=== PATIENT | female | born 1945 | race Caucasian/White ===

== ENCOUNTER 2017-02-25 13:06 | Inpatient (IN) | payer MEDICARE, BC ==
[~2017-02-25] VITALS: Ht 157.5 cm; Wt 70.0 kg
[~2017-02-25 13:06] MED LIST: CARV25TA2 PO; GLIP5TAB22 PO; LOSA100T6 PO; METF500T4 PO
--- NOTE | 2017-02-25 13:26 | ED.ADGEN ---
Past History Past Medical History: CAD, Dementia, Diabetes, Other Past Surgical History: Other Adult General HPI HPI Patient is a 72-year-old woman, with history of CAD, type 2 diabetes mellitus, dementia, seizure disorder, who presents the emergency department via EMS with report of a witnessed seizure. Per EMS, they were told the patient was lying on the couch when she had a witnessed tonic-clonic seizure that lasted between 2-4 minutes. Patient had a seizure a year ago per report given by an individual at the patient's home, same individual's report of the patient has been noncompliant with medications, medication list is not known at this time, however this individual is en route to the emergency department per EMS report. Upon arrival to the emergency department, patient is moving all extremities but is repetitive in questioning, and cannot answer questions. No report of trauma per EMS, no signs of trauma and examination, patient has been incontinent of stool and bladder. Patient is denying complaints at this time, but as stated is a limited historian. Accu-Chek en route was 336, on arrival to the emergency department heart rate is 105, blood pressure is 198/94, oxygen saturation is 95 % on 2 L nasal cannula. Patient placed on seizure precautions. Review of Systems Review of Systems Constitutional: Denies fever or chills [] Eyes: Denies change in visual acuity, redness, or eye pain [] HENT: Denies nasal congestion or sore throat [] Respiratory: Denies cough or shortness of breath [] Cardiovascular: No additional information not addressed in HPI [] GI: Denies abdominal pain, nausea, vomiting, bloody stools or diarrhea [] : Denies dysuria or hematuria [] Musculoskeletal: Denies back pain or joint pain [] Integument: Denies rash or skin lesions [] Neurologic: Denies headache, focal weakness or sensory changes []seizure per report. Endocrine: Denies polyuria or polydipsia [] Patient is a very limited historian. Current Medications Current Medications Current Medications Medications (Trade) Dose Ordered Sig/Chela Start Time Stop Time Status Last Admin Dose Admin Acetaminophen (Tylenol) 650 mg PRN Q4HRS PRN 02/25/17 15:30 02/26/17 15:29 Ceftriaxone Sodium 1 gm/ Sodium Chloride 50 ml @ 100 mls/hr 1X ONCE 02/25/17 15:30 02/25/17 15:59 02/25/17 15:30 100 MLS/HR Ceftriaxone Sodium (Rocephin) 1 gm STK-MED ONCE 02/25/17 15:14 02/25/17 15:15 DC Dextrose 12.5 gm PRN Q15MIN PRN 02/25/17 15:30 Insulin Aspart (NovoLOG) 0-5 UNITS QIDPRN PRN 02/25/17 15:30 Magnesium Sulfate/ Dextrose 100 ml @ 100 mls/hr 1X ONCE 02/25/17 15:45 02/25/17 16:44 Nystatin/ Triamcinolone Acetonide (Mycolog Ii) 1 fuad 1X ONCE 02/25/17 13:30 02/25/17 13:31 DC 02/25/17 13:30 1 FUAD Ondansetron HCl (Zofran) 4 mg PRN Q4HRS PRN 02/25/17 15:30 02/26/17 15:29 Sodium Chloride 1,000 ml @ 100 mls/hr Q10H 02/25/17 15:18 02/26/17 15:17 Allergies Allergies Allergies Coded Allergies Type Severity Reaction Last Updated Verified No Known Drug Allergies 05/24/16 No Physical Exam Physical Exam Constitutional: Well developed, well nourished, no acute distress, non-toxic appearance. []Patient noted to have stool on legs and feet. Stool also noted underneath fingernails. HENT: Normocephalic, atraumatic, bilateral external ears normal, oropharynx moist, no oral exudates, nose normal. [] Eyes: PERRLA, EOMI, conjunctiva normal, no discharge. [] Neck: Normal range of motion, no tenderness, supple, no stridor. [] Cardiovascular: Tachycardic, S1, S2, soft heart sounds, no rubs or gallops. No murmur.[] Lungs & Thorax: Bilateral breath sounds clear to auscultation no wheezing, rhonchi, rales. No chest or crepitus or tenderness. Patient noted to have erythema underneath both breasts consistent with rebeka infection.] Abdomen: Bowel sounds normal, soft, no rebound, rigidity, no guarding, no tenderness, no masses, no pulsatile masses. [] Skin: Warm, dry, patient with erythema and candidal type rash underneath both breasts and in the inguinal region bilaterally, no abscess formation or induration identified, noted to have erythema and irritation of the buttocks but no evidence of the cubital ulcers or breakdown. Back: No midline tenderness, no sepsis or deformities, lesions or signs of trauma, no CVA tenderness. [] Extremities: No tenderness, patient with swelling in the left lower sternal greater than right, with trace pitting edema in the right, and 1+ pitting edema on the left, no external signs of trauma, no cyanosis, no clubbing, ROM intact, no edema. [] Neurologic: Patient is awake, is answering some questions but is repetitive in questioning, and cannot answer to location or name, this is baseline mental status is unknown at this time, is moving all extremities and sensation appears to be intact. He pulls are 3 mm and reactive bilaterally. No focal deficits noted. [] Psychologic: Patient is confused. Current Patient Data Vital Signs Vital Signs Date Time Temp Pulse Resp B/P (MAP) Pulse Ox O2 Delivery O2 Flow Rate FiO2 02/25/17 13:06 98.0 96 18 98 Room Air Lab Results Laboratory Tests Test 02/25/17 13:20 02/25/17 13:24 02/25/17 13:30 02/25/17 14:55 Stool Occult Blood Negative (NEG) Urine Collection Type U cath Urine Color Straw Urine Clarity Turbid Urine pH 5.5 Urine Specific Withams 1.025 Urine Protein >100 mg/dl (NEG-TRACE) Urine Glucose (UA) 100 mg/dL (NEG) Urine Ketones (Stick) Neg mg/dL (NEG) Urine Blood Mod (NEG) Urine Nitrite Neg (NEG) Urine Bilirubin Neg (NEG) Urine Urobilinogen Dipstick 0.2 mg/dL (0.2 mg/dL) Urine Leukocyte Esterase Mod (NEG) Urine RBC 6-10 /HPF (0-2) Urine WBC Tntc /HPF (0-4) Urine Squamous Epithelial Cells Few /LPF Urine Transitional Epithelial Cells Occ /LPF Urine Bacteria Many /HPF (0-FEW) Urine Hyaline Casts Few /HPF Urine Opiates Screen Neg (NEG) Urine Methadone Screen Neg (NEG) Urine Barbiturates Neg (NEG) Urine Phencyclidine Screen Neg (NEG) Urine Amphetamine/Methamphetamine Neg (NEG) Urine Benzodiazepines Screen Neg (NEG) Urine Cocaine Screen Neg (NEG) Urine Cannabinoids Screen Neg (NEG) Urine Ethyl Alcohol Neg (NEG) White Blood Count 9.1 x10^3/uL (4.0-11.0) Red Blood Count 3.18 x10^6/uL (3.50-5.40) L Hemoglobin 10.2 g/dL (12.0-15.5) L Hematocrit 28.9 % (36.0-47.0) L Mean Corpuscular Volume 91 fL (79-100) Mean Corpuscular Hemoglobin 32 pg (25-35) Mean Corpuscular Hemoglobin Concent 35 g/dL (31-37) Red Cell Distribution Width 14.3 % (11.5-14.5) Platelet Count 179 x10^3/uL (140-400) Neutrophils (%) (Auto) 87 % (31-73) H Lymphocytes (%) (Auto) 9 % (24-48) L Monocytes (%) (Auto) 3 % (0-9) Eosinophils (%) (Auto) 0 % (0-3) Basophils (%) (Auto) 0 % (0-3) Neutrophils # (Auto) 7.9 x10^3uL (1.8-7.7) H Lymphocytes # (Auto) 0.8 x10^3/uL (1.0-4.8) L Monocytes # (Auto) 0.3 x10^3/uL (0.0-1.1) Eosinophils # (Auto) 0.0 x10^3/uL (0.0-0.7) Basophils # (Auto) 0.0 x10^3/uL (0.0-0.2) Sodium Level 145 mmol/L (136-145) Potassium Level 4.0 mmol/L (3.5-5.1) Chloride Level 111 mmol/L (98-107) H Carbon Dioxide Level 20 mmol/L (21-32) L Anion Gap 14 (6-14) Blood Urea Nitrogen 52 mg/dL (7-20) H Creatinine 3.5 mg/dL (0.6-1.0) H Estimated GFR (Cockcroft-Gault) 12.8 BUN/Creatinine Ratio 15 (6-20) Glucose Level 240 mg/dL (70-99) H Lactic Acid Level 3.3 mmol/L (0.4-2.0) H Calcium Level 6.8 mg/dL (8.5-10.1) L Phosphorus Level 5.4 mg/dL (2.6-4.7) H Magnesium Level 1.3 mg/dL (1.8-2.4) L Total Bilirubin 0.2 mg/dL (0.2-1.0) Aspartate Amino Transferase (AST) 24 U/L (15-37) Alanine Aminotransferase (ALT) 34 U/L (14-59) Alkaline Phosphatase 143 U/L (46-116) H Troponin I Quantitative < 0.017 ng/mL (0-0.055) LF-Ujp-W-Type Natriuretic Peptide 1631 pg/mL (0-124) H Total Protein 6.6 g/dL (6.4-8.2) Albumin 2.9 g/dL (3.4-5.0) L Albumin/Globulin Ratio 0.8 (1.0-1.7) L Prothrombin Time 9.9 SEC (9.4-11.4) Prothrombin Time INR 1.0 (0.9-1.1) PTT 28 SEC (23-33) EKG EKG EC: Right axis deviation, sinus rhythm at 95 beats are minute, QTC of 481 , [place] 196, QRS of 82, with compared to ECG from 05/18/2016, patient noted to have contour abnormality in aVR and in the inferior leads, no ST depressions, QTC abnormal ECG which changes from prior, but does not meet STEMI criteria, or obvious pattern of ischemia. As interpreted by me. Radiology/Procedures Radiology/Procedures [] Course & Med Decision Making Course & Med Decision Making Pertinent Labs and Imaging studies reviewed. (See chart for details) Patient's sister, who lives the patient is now bedside. She states that she heard the patient "yell out", noted the patient had slid sideways on the couch, where she been seated, and was shaking. States this lasted for a few minutes and then resolved. She states that this is the same type episode that occurred before the patient was evaluated for seizure activity at [facility] about a year ago. At that time and episode was witnessed while the patient was evaluated at [facility] no epileptiform activity or other concerning findings were identified on EEG or neurology evaluation, therefore the patient was not initiated on any medications. Patient's sister states she was told that the seizure activity might be due to the patient's underlying urinary tract infection. She states patient is "how she is when she has a urinary tract infection", which is more confused than usual the patient does have baseline dementia. GCS is currently 13, patient is cooperative, alert and comfortable. Patient with too numerous to count WBCs in her urine on this visit, on a straight cathetered sample, negative for ketones. No leukocytosis, hemoglobin 10.1, creatinine is 3.5, with a blood urea nitrogen of 52. During patient's previous admission for a urinary tract infection, creatinine was 4.2, with a blood urea nitrogen of 115, then improved to 2.1, which appears to be the patient's baseline per discussion with sister. Patient with a lactic acidosis at 3.3. CT of the head was unremarkable aside from chronic changes, as was chest x-ray. Diagnosis of urinary tract infection, with potential seizure, lactic acidosis, dehydration and acute on chronic renal failure. I did discuss the left leg enlargement with the patient's sister, she states that this is chronic and unchanged, as stated patient is no evidence of cellulitis, has chronic vascular changes, without any tenderness. Patient has previously had Doppler studies performed of this leg which have all been negative for DVT, no evidence of any acute abnormality at this time. ECG reveals some contour changes from prior, with a QTC that is mildly prolonged at 481, no evidence of acute ischemia, initial troponin is negative in the ED. magnesium noted to be 1.3, patient ordered 1 g of magnesium repletion, to run over one hour, with repeat laboratory studies to be obtained in the morning. Patient initiated on ceftriaxone in the emergency department. Findings as above discussed with Dr. Dent, hospitalist on-call, patient's presentation, history, and evaluation discussed in detail. Patient accepted to her service as a full admission to the telemetry floor, with consultation for neurology and repeat EEG. Will continue IV hydration, antibiotics, repeat laboratory studies, consultation, bridge orders entered per discussion. Final Impression Final Impression [] Problems: Dragon Disclaimer Dragon Disclaimer This electronic medical record was generated, in whole or in part, using a voice recognition dictation system. Departure: Impression: Primary Impression: Acute on chronic renal failure Additional Impressions: Hypomagnesemia UTI (urinary tract infection) Uncontrolled diabetes mellitus Seizure Disposition: 09 ADMITTED INPATIENT Admitting Physician: Anastasia Dent Condition: IMPROVED PRERNA PETIT DO Feb 25, 2017 13:26
[2017-02-25] MEDS ORDERED: NYSTATIN/TRIAMCIN TOPICAL CREAM 15GM TUBE. TP ONE (13:30)
[2017-02-25 13:47] LABS: AMPHETAMINE/METHAMPHETAMINE NEG (NEG); BARBITURATES NEG (NEG); BENZODIAZEPINES NEG (NEG); CANNABINOIDS NEG (NEG); COCAINE NEG (NEG); METHADONE NEG (NEG); OPIATES NEG (NEG); PHENCYCLIDINE NEG (NEG)
[2017-02-25 13:51] LABS: BILIRUBIN,URINE NEG (NEG); CLARITY,URINE TURBID; COLOR,URINE STRAW; GLUCOSE,URINE 100 mg/dL (NEG); NITRITE,URINE NEG (NEG); UROBILINOGEN,URINE 0.2 mg/dL (0.2 mg/dL)
[2017-02-25 13:52] LABS: BACTERIA,URINE MANY /HPF (0-FEW); HYALINE CASTS, URINE FEW /HPF; SQUAMOUS EPITHELIAL CELL,UR FEW /LPF; WBC,URINE TNTC /HPF (0-4)
[2017-02-25 13:54] LABS: BASO % 0 % (0-3); EOS % 0 % (0-3); HEMATOCRIT 28.9 % (36.0-47.0); HEMOGLOBIN 10.2 g/dL (12.0-15.5); LYMPH # 0.8 x10^3/uL (1.0-4.8); LYMPH % 9 % (24-48); MEAN CORPUSCULAR HEMOGLOBIN 32 pg (25-35); MEAN CORPUSCULAR HGB CONC 35 g/dL (31-37); MEAN CORPUSCULAR VOLUME 91 fL (79-100); MONO # 0.3 x10^3/uL (0.0-1.1); MONO % 3 % (0-9); NEUT # 7.9 x10^3uL (1.8-7.7); NEUT % 87 % (31-73); PLATELET COUNT 179 x10^3/uL (140-400); RED BLOOD COUNT 3.18 x10^6/uL (3.50-5.40); RED CELL DISTRIBUTION WIDTH 14.3 % (11.5-14.5); WHITE BLOOD COUNT 9.1 x10^3/uL (4.0-11.0)
[2017-02-25 14:06] LABS: ALBUMIN 2.9 g/dL (3.4-5.0); ALBUMIN/GLOBULIN RATIO 0.8 (1.0-1.7); CALCIUM 6.8 mg/dL (8.5-10.1); CREATININE 3.5 mg/dL (0.6-1.0); GFR 12.8; TOTAL BILIRUBIN 0.2 mg/dL (0.2-1.0); TOTAL PROTEIN 6.6 g/dL (6.4-8.2)
[2017-02-25 14:12] LABS: FECAL OB PT NEGATIVE (NEG)
--- NOTE | 2017-02-25 14:50 | RAD ---
CT of the head without contrast, 02/25/2017: History: Seizure, altered mental status Comparison is made to a study from 05/18/2016. The study is partially compromised by patient motion artifact. There is moderate cerebral atrophy. There are extensive deep white matter lucencies compatible with chronic ischemic change. Similar findings were present on the previous study. The ventricles are mildly enlarged on a compensatory basis. There is no shift of the midline structures. There is no evidence of acute intracranial hemorrhage or mass effect. IMPRESSION: 1. Chronic findings as described above. 2. No acute intracranial abnormality is detected. PQRS Compliance Statement: One or more of the following individualized dose reduction techniques were utilized for this examination: 1. Automated exposure control 2. Adjustment of the mA and/or kV according to patient size 3. Use of iterative reconstruction technique
[2017-02-25 14:55] LABS: MAGNESIUM 1.3 mg/dL (1.8-2.4); PHOSPHORUS 5.4 mg/dL (2.6-4.7)
--- NOTE | 2017-02-25 14:55 | RAD ---
Portable chest, 02/25/2017: History: Seizure, mental status change Comparison is made to a study from 05/18/2016. The heart is mildly enlarged. The pulmonary vascularity is normal. No pulmonary infiltrates are seen. There is no evidence of pleural fluid. IMPRESSION: 1. Mild cardiomegaly. 2. No acute abnormality is detected.
[2017-02-25] MEDS ORDERED: IV NORMAL SALINE 50ML 50 ML ONE (15:14)
[2017-02-25] MEDS ORDERED: cefTRIAXone SODIUM 1 GM VIAL IV ONE (15:14)
[2017-02-25] MEDS ORDERED: IV NORMAL SALINE 1,000ML 1,000 ML IV SCH (15:18)
[2017-02-25] MEDS ORDERED: ACETAMINOPHEN 325 MG TABLET PO PRN (15:30)
[2017-02-25] MEDS ORDERED: ONDANSETRON PF 4 MG/2 ML VIAL. IV PRN (15:30)
[2017-02-25] MEDS ORDERED: DEXTROSE 50% 25 GM / 50ML DISP.SYRIN. IV PRN (15:30)
[2017-02-25] MEDS ORDERED: IV NORMAL SALINE 1,000ML 1,000 ML IV ONE (15:30)
[2017-02-25] MEDS ORDERED: INSULIN ASPART 300 UNITS/3 ML INSULN.PEN SQ PRN (15:30)
[2017-02-25] MEDS ORDERED: IV NORMAL SALINE 500ML 500 ML IV ONE (15:30)
[2017-02-25] MEDS ORDERED: MAGNESIUM SULFATE 1GM 100 ML IV ONE (15:45)
--- NOTE | 2017-02-25 16:48 | EKG ---
[address] [address] Test Date: 2017-02-25 Test Time: 13:34:12 Pat Name: TONY PARKS Department: Room: [facility] A Gender: F Rehanger: : 1945 Requested By: PRERNA PETIT Order Number: [id number] Reading MD: Soy Saavedra Measurements Intervals Lindsey Rate: 95 P: 24 SC: 196 QRS: 92 QRSD: 82 T: 16 QT: 380 QTc: 481 Interpretive Statements SINUS RHYTHM RBBB Electronically Signed On 02-26-2017 9:57:25 CDT by Soy Saavedra
[2017-02-25 18:14] VITALS: BP 171/83
[2017-02-25 18:21] VITALS: BP 171/83
[2017-02-25] MEDS: diphenhydrAMINE 50 MG/ML VIAL IVP PRN (19:54)
[2017-02-25] MEDS ORDERED: MAGNESIUM SULFATE 2GM 50 ML IV ONE (20:00)
[2017-02-25] MEDS ORDERED: cloNIDine TTS-1 1 PATCH PATCH TD SCH (20:00)
[2017-02-25] MEDS: ENOXAPARIN 30 MG/0.3 ML DISP.SYRIN. SQ SCH (20:23)
[2017-02-25] MEDS: IV NORMAL SALINE 1,000ML 1,000 ML IV SCH (20:25)
--- NOTE | 2017-02-25 20:25 | HP ---
ADMIT DATE: 02/25/2017 REASON FOR ADMISSION: Apparent seizure, urinary tract infection. HISTORY OF PRESENT ILLNESS: According to her sister, this 72-year-old female with dementia stated that she witnessed her having a seizure. She was lying on the couch and it was an apparent tonic-clonic seizure that lasted 2-4 minutes. She does have a previous history of a seizure and was evaluated at [facility] for that. PAST MEDICAL HISTORY: Diabetes, dementia, kidney failure, dehydration, previous urinary tract infection with sepsis in 05/2016, coronary artery disease. MEDICATIONS: None. The patient refused to take any. Her sister tries giving to her and she takes them out even when she tries to disguise them. ALLERGIES: None. SOCIAL HISTORY: Lives at home with her sister. Her sister takes care of her. No smoking or alcohol. REVIEW OF SYSTEMS: Unable to answer. OBJECTIVE: VITAL SIGNS: Blood pressure 171/83, pulse 91, respirations 22, pulse ox 95% on room air, temperature 97.6, height 62 inches, weight 153 pounds. GENERAL: Elderly 72-year-old in no acute distress. She had discomfort in the shower. She is alert and extremely confused. HEENT: Her eyes are clear. Tongue was moist. NECK: Supple. LUNGS: Clear. CARDIOVASCULAR: Regular rhythm and rate. ABDOMEN: Large and obese, nontender. EXTREMITIES: With chronic lymphedema changes. LABORATORY DATA: Hemoglobin 10.2, hematocrit 28.9, magnesium was 1.3. Lactic acid 3.3, now 1.0. Urinalysis: Specific gravity 1.025. Urinalysis, too numerous to count white cells. ASSESSMENT: 1. Urinary tract infection. 2. Mild normochromic normocytic anemia. 3. Hypomagnesemia. 4. Lactic acidosis, but quickly normalized. 5. Metabolic acidosis. 6. Acute renal failure again. PLAN: Hydration, ceftriaxone and replace her magnesium. ADAM LAKHANI DO DR: ROSALIND/jamir JOB#: [id number] / [id number]
[2017-02-25] MEDS: NYSTATIN TOPICAL POWDER 15GM BOTTLE. TP SCH (20:44)
[2017-02-25 23:55] VITALS: BP 167/80
--- NOTE | 2017-02-26 01:53 | CONS ---
DATE OF CONSULTATION: 02/25/2017 NEUROLOGY CONSULTATION REASON FOR CONSULTATION: Rule out seizure. HISTORY OF PRESENT ILLNESS: This is a 72-year-old right-handed white female, who was admitted to Emergency Room after she presented with possible seizure-like activities witnessed by her sister, who stated that the patient had screamed, then she had little jerking movement of the entire body with foaming at the mouth, lasted a few seconds without clear postictal confusion. The patient has had a history of dementia and she has intermittent urinary and stool incontinence. According to her sister, the patient had similar seizure-like activities approximately a year ago. She was seen at [facility] and she had an EEG, which did not show any seizure activities. The patient was not placed on any anticonvulsants. The patient did not recall the event. There is no history of recent head injuries or falls. Initial nonenhanced head CT scan revealed no evidence of acute intracranial changes. The patient has not been on any anticonvulsant in the past. Currently, she denies headaches, visual disturbances, nausea, vomiting, chest pain, shortness of breath or palpitations. According to the sister, the patient has not been compliant with medications, probably due to underlying dementia. PAST MEDICAL HISTORY: Significant for diabetes mellitus type 2, dementia, questionable seizure disorder. SOCIAL HISTORY: The patient lives with her sister. She denies smoking, alcohol drinking, or illicit drug use. CURRENT HOME MEDICATIONS: Insulin NovoLog. ALLERGIES: No known drug allergies. FAMILY HISTORY: Noncontributory. REVIEW OF SYSTEMS: A 10-point review of systems was performed and as mentioned above in the history of present illness. PHYSICAL EXAMINATION: GENERAL: Well-developed, well-nourished white female, not in acute distress. She weighs 150 pounds. VITAL SIGNS: Blood pressure is 171/83, respiratory rate 22, pulse is 91 and regular, temperature 97.6, and oxygen saturation 95% on room air. HEENT: Normocephalic, atraumatic, otherwise unremarkable. NECK: Supple. Negative for carotid bruit, lymphadenopathy or thyromegaly. LUNGS: Clear to A and P. CARDIOVASCULAR: Regular rate and rhythm, normal S1, S2. There are no S3, S4 or murmur. ABDOMEN: Soft. Bowel sounds positive. EXTREMITIES: Negative for cyanosis, clubbing or pitting edema. NEUROLOGICAL EXAM: Mental Status: The patient is alert, but disoriented to time, place, and person. The speech is fluent. There is no language dysfunction. Memory, judgment, and abstract thinking are mpaired. The patient denies hallucination or delusion. CRANIAL NERVES: Visual mata appear to be intact. Pupils are reactive to light and accommodation. The extraocular movements are intact. There is no nystagmus. There is no facial motor or sensory deficit. Hearing is intact bilaterally. The palate is elevated symmetrically. Sternocleidomastoid muscles are powerful bilaterally. The patient shrugs her shoulders symmetrically and protrudes her tongue in the midline without fasciculation or atrophy. MOTOR: No focal muscle bulk was seen. Tone is normal. The strength is 5/5 throughout. Sensory examination revealed normal pinprick, light touch, vibratory and position senses. Deep tendon reflexes were symmetric and hypoactive with absent Achilles responses. Gait and coordination were normal. LABORATORY DATA: CBC revealed white blood cells of 9100, hemoglobin 10.2, hematocrit 28.9, platelet count 179. Chemistry revealed sodium 145, potassium 4, chloride 111, CO2 of 20, BUN 52, creatinine 3.5, glucose 240, calcium is 6.8, phosphorus is 4.5, iron is 20. Magnesium is low at 1.3. Liver enzymes are normal. Troponin level is less than 0.017. Urinalysis is positive for urinary tract infections, while urine drug screen is negative. IMPRESSION: 1. Possible seizure-like activities. However, the patient has had history of seizure-like activities in the past. She was admitted to [facility] and EEG was normal according to her sister. 2. Urinary tract infections. 3. Dementia. 4. Chronic kidney disease. 5. Diabetes mellitus. 6. Hypomagnesemia, hypocalcemia and hypercholesterolemia. RECOMMENDATIONS: 1. We will obtain an EEG. 2. Treat underlying urinary tract infections and correct the underlying metabolic derangements. 3. In case if having a seizure-like activity, we will start the patient on Ativan intravenously as needed. M Larry HERRERA MD DR: MATTY/jamir JOB#: [id number] / [id number]
[2017-02-26] MEDS: IV NORMAL SALINE 1,000ML 1,000 ML IV SCH (01:56)
[2017-02-26] MEDS: diphenhydrAMINE 50 MG/ML VIAL IVP PRN ×2 (01:57→10:57)
[2017-02-26 06:05] VITALS: BP 175/80
[2017-02-26 06:11] LABS: BASO # 0.1 x10^3/uL (0.0-0.2); BASO % 1 % (0-3); EOS # 0.2 x10^3/uL (0.0-0.7); EOS % 2 % (0-3); HEMATOCRIT 24.7 % (36.0-47.0); LYMPH % 23 % (24-48); MEAN CORPUSCULAR HEMOGLOBIN 32 pg (25-35); MEAN CORPUSCULAR HGB CONC 35 g/dL (31-37); MEAN CORPUSCULAR VOLUME 91 fL (79-100); MONO # 0.7 x10^3/uL (0.0-1.1); MONO % 8 % (0-9); NEUT # 5.7 x10^3uL (1.8-7.7); NEUT % 66 % (31-73); PLATELET COUNT 168 x10^3/uL (140-400); RED BLOOD COUNT 2.72 x10^6/uL (3.50-5.40); RED CELL DISTRIBUTION WIDTH 14.4 % (11.5-14.5); WHITE BLOOD COUNT 8.7 x10^3/uL (4.0-11.0)
[2017-02-26 06:14] LABS: HEMOGLOBIN 8.7 g/dL (12.0-15.5)
[2017-02-26 06:20] LABS: ALBUMIN 2.3 g/dL (3.4-5.0); ALBUMIN/GLOBULIN RATIO 0.7 (1.0-1.7); CALCIUM 6.6 mg/dL (8.5-10.1); CREATININE 3.1 mg/dL (0.6-1.0); GFR 14.8; MAGNESIUM 1.9 mg/dL (1.8-2.4); POTASSIUM 3.2 mmol/L (3.5-5.1); TOTAL BILIRUBIN 0.2 mg/dL (0.2-1.0); TOTAL PROTEIN 5.7 g/dL (6.4-8.2)
[2017-02-26] MEDS ORDERED: POTASSIUM CHLORIDE 10 MEQ TABLET.ER. PO ONE (07:30)
[2017-02-26] MEDS: NYSTATIN TOPICAL POWDER 15GM BOTTLE. TP SCH ×2 (09:00→20:26)
--- NOTE | 2017-02-26 10:29 | PDOC2 ---
NICKIE ARMIJO APRN 02/26/17 1029: CONSULT Date of Admission DATE: 02/26/17 TIME: Reason for Consult: abn EKG Problem List Problems Medical Problems: (1) Acute on chronic renal failure Status: Acute (2) Hypomagnesemia Status: Acute (3) Seizure Status: Acute (4) Uncontrolled diabetes mellitus Status: Acute (5) UTI (urinary tract infection) Status: Acute History of Present Illness Ms Bernal is a 72 year old female with dementia and possible seizure activity. She was apparently witnessed having what appeared to be a seizure by her sister. The patient herself has dementia and unable to give history so this is obtained from the chart. Additionally she has apparently been refusing all medications at home. She is currently smiling, cheerfully confused and without complaint. Past Medical History Diabetes, dementia, kidney failure, dehydration, previous urinary tract infection with sepsis in 05/2016, coronary artery disease. She was reportedly previously worked up for seizures at [facility] with a normal EEg. Past Surgical History bilateral knee surgeries, otherwise unknown Family History non contributory Social History Lives with sister, non smoker, no ETOH, no illicit drugs Current Medications Current Medications Nystatin/ Triamcinolone Acetonide (Mycolog Ii) 1 fuad 1X ONCE TP Last administered on 02/25/17 13:30; Start 02/25/17 at 13:30; Stop 02/25/17 at 13:31 ; Status DC Sodium Chloride 500 ml @ 0 mls/hr 1X ONCE IV Last administered on 02/25/17 15 :29; Start 02/25/17 at 15:30; Stop 02/25/17 at 15:31; Status DC Sodium Chloride 1,000 ml @ 100 mls/hr 1X ONCE IV ; Start 02/25/17 at 15:30; Stop 02/26/17 at 01:29; Status DC Ceftriaxone Sodium 1 gm/ Sodium Chloride 50 ml @ 100 mls/hr 1X ONCE IV Last administered on 02/25/17 15:30; Start 02/25/17 at 15:30; Stop 02/25/17 at 15:59 ; Status DC Sodium Chloride 50 ml @ As Directed STK-MED ONCE .ROUTE ; Start 02/25/17 at 15: 14; Stop 02/25/17 at 15:15; Status DC Ceftriaxone Sodium (Rocephin) 1 gm STK-MED ONCE IV ; Start 02/25/17 at 15:14; Stop 02/25/17 at 15:15; Status DC Ondansetron HCl (Zofran) 4 mg PRN Q4HRS PRN IV NAUSEA/VOMITING; Start 02/25/17 at 15:30; Stop 02/26/17 at 15:29 Sodium Chloride 1,000 ml @ 100 mls/hr Q10H IV ; Start 02/25/17 at 15:18; Stop 02/25/17 at 20:45; Status DC Acetaminophen (Tylenol) 650 mg PRN Q4HRS PRN PO FEVER; Start 02/25/17 at 15:30 ; Stop 02/26/17 at 15:29 Insulin Aspart (NovoLOG) 0-5 UNITS QIDPRN PRN SQ PER PROTOCOL; Start 02/25/17 at 15:30 Dextrose 12.5 gm PRN Q15MIN PRN IV SEE COMMENTS; Start 02/25/17 at 15:30 Magnesium Sulfate/ Dextrose 100 ml @ 100 mls/hr 1X ONCE IV ; Start 02/25/17 at 15:45; Stop 02/25/17 at 16:44; Status DC Clonidine HCl (Catapres Tts-1) 1 patch WEEKLY TD Last administered on 20:24; Start 02/25/17 at 20:00 Ceftriaxone Sodium 1 gm/ Sodium Chloride 50 ml @ 100 mls/hr Q24H IV ; Start 05/04 at 15:00 Sodium Chloride 1,000 ml @ 125 mls/hr Q8H IV Last administered on 02/26/17 01 :56; Start 02/25/17 at 19:15 Magnesium Sulfate 50 ml @ 25 mls/hr 1X ONCE IV Last administered on 02/25/17 20:23; Start 02/25/17 at 20:00; Stop 02/25/17 at 21:59; Status DC Nystatin (Nystop) 1 fuad BID TP Last administered on 02/26/17 09:00; Start 04/03 at 21:00 Diphenhydramine HCl (Benadryl) 25 mg PRN Q6HRS PRN IVP ITCHING Last administered on 02/26/17 01:57; Start 02/25/17 at 19:30 Enoxaparin Sodium (Lovenox) 30 mg Q24H SQ Last administered on 02/25/17 20:23 ; Start 02/25/17 at 21:00 Potassium Chloride (Klor-Con) 10 meq 1X ONCE PO Last administered on 07:59; Start 02/26/17 at 07:30; Stop 02/26/17 at 07:31; Status DC Metoprolol Tartrate (Lopressor) 25 mg BID PO ; Start 02/26/17 at 09:30 Active Scripts Active Reported Glipizide Er (Glipizide) 5 Mg Tab.er.24 1 Tab PO DAILY LAST DOSE GIVEN: Did not receive NEXT DOSE DUE: DATE: tomorrow TIME: 8am Carvedilol 25 Mg Tablet 1 Tab PO BID Allergies: Coded Allergies: No Known Drug Allergies (Unverified , 05/24/16) Review of System unobtainable due to patient mental status General: Alert, Cooperative, No acute distress Lungs: Other (clear anteriorly) Heart: Regular rate, Normal S1, Normal S2, Other (no obvious murmurs, no gallops, clicks or rubs) Abdomen: Normal bowel sounds, Soft Extremities: Other (chronic edema) Psych/Mental Status: Other (confused, cheerful) VITALS Vital Signs Date Time Temp Pulse Resp B/P (MAP) Pulse Ox O2 Delivery O2 Flow Rate FiO2 02/26/17 06:05 98.5 82 18 175/80 (111) 97 Room Air Labs Laboratory Tests Test 02/25/17 13:20 02/25/17 13:24 02/25/17 13:30 02/25/17 14:55 Stool Occult Blood Negative (NEG) Urine Collection Type U cath Urine Color Straw Urine Clarity Turbid Urine pH 5.5 Urine Specific [place] 1.025 Urine Protein >100 mg/dl (NEG-TRACE) Urine Glucose (UA) 100 mg/dL (NEG) Urine Ketones (Stick) Neg mg/dL (NEG) Urine Blood Mod (NEG) Urine Nitrite Neg (NEG) Urine Bilirubin Neg (NEG) Urine Urobilinogen Dipstick 0.2 mg/dL (0.2 mg/dL) Urine Leukocyte Esterase Mod (NEG) Urine RBC 6-10 /HPF (0-2) Urine WBC Tntc /HPF (0-4) Urine Squamous Epithelial Cells Few /LPF Urine Transitional Epithelial Cells Occ /LPF Urine Bacteria Many /HPF (0-FEW) Urine Hyaline Casts Few /HPF Urine Opiates Screen Neg (NEG) Urine Methadone Screen Neg (NEG) Urine Barbiturates Neg (NEG) Urine Phencyclidine Screen Neg (NEG) Urine Amphetamine/Methamphetamine Neg (NEG) Urine Benzodiazepines Screen Neg (NEG) Urine Cocaine Screen Neg (NEG) Urine Cannabinoids Screen Neg (NEG) Urine Ethyl Alcohol Neg (NEG) White Blood Count 9.1 x10^3/uL (4.0-11.0) Red Blood Count 3.18 x10^6/uL (3.50-5.40) Hemoglobin 10.2 g/dL (12.0-15.5) Hematocrit 28.9 % (36.0-47.0) Mean Corpuscular Volume 91 fL (79-100) Mean Corpuscular Hemoglobin 32 pg (25-35) Mean Corpuscular Hemoglobin Concent 35 g/dL (31-37) Red Cell Distribution Width 14.3 % (11.5-14.5) Platelet Count 179 x10^3/uL (140-400) Neutrophils (%) (Auto) 87 % (31-73) Lymphocytes (%) (Auto) 9 % (24-48) Monocytes (%) (Auto) 3 % (0-9) Eosinophils (%) (Auto) 0 % (0-3) Basophils (%) (Auto) 0 % (0-3) Neutrophils # (Auto) 7.9 x10^3uL (1.8-7.7) Lymphocytes # (Auto) 0.8 x10^3/uL (1.0-4.8) Monocytes # (Auto) 0.3 x10^3/uL (0.0-1.1) Eosinophils # (Auto) 0.0 x10^3/uL (0.0-0.7) Basophils # (Auto) 0.0 x10^3/uL (0.0-0.2) Sodium Level 145 mmol/L (136-145) Potassium Level 4.0 mmol/L (3.5-5.1) Chloride Level 111 mmol/L (98-107) Carbon Dioxide Level 20 mmol/L (21-32) Anion Gap 14 (6-14) Blood Urea Nitrogen 52 mg/dL (7-20) Creatinine 3.5 mg/dL (0.6-1.0) Estimated GFR (Cockcroft-Gault) 12.8 BUN/Creatinine Ratio 15 (6-20) Glucose Level 240 mg/dL (70-99) Lactic Acid Level 3.3 mmol/L (0.4-2.0) Calcium Level 6.8 mg/dL (8.5-10.1) Phosphorus Level 5.4 mg/dL (2.6-4.7) Magnesium Level 1.3 mg/dL (1.8-2.4) Total Bilirubin 0.2 mg/dL (0.2-1.0) Aspartate Amino Transf (AST/SGOT) 24 U/L (15-37) Alanine Aminotransferase (ALT/SGPT) 34 U/L (14-59) Alkaline Phosphatase 143 U/L (46-116) Troponin I Quantitative < 0.017 ng/mL (0-0.055) XU-Cxd-S-Type Natriuretic Peptide 1631 pg/mL (0-124) Total Protein 6.6 g/dL (6.4-8.2) Albumin 2.9 g/dL (3.4-5.0) Albumin/Globulin Ratio 0.8 (1.0-1.7) Prothrombin Time 9.9 SEC (9.4-11.4) Prothromb Time International Ratio 1.0 (0.9-1.1) Activated Partial Thromboplast Time 28 SEC (23-33) Test 02/25/17 17:15 02/25/17 20:10 02/26/17 02:15 02/26/17 05:56 Lactic Acid Level 1.0 mmol/L (0.4-2.0) Troponin I Quantitative 0.035 ng/mL (0-0.055) 0.043 ng/mL (0-0.055) White Blood Count 8.7 x10^3/uL (4.0-11.0) Red Blood Count 2.72 x10^6/uL (3.50-5.40) Hemoglobin 8.7 g/dL (12.0-15.5) Hematocrit 24.7 % (36.0-47.0) Mean Corpuscular Volume 91 fL (79-100) Mean Corpuscular Hemoglobin 32 pg (25-35) Mean Corpuscular Hemoglobin Concent 35 g/dL (31-37) Red Cell Distribution Width 14.4 % (11.5-14.5) Platelet Count 168 x10^3/uL (140-400) Neutrophils (%) (Auto) 66 % (31-73) Lymphocytes (%) (Auto) 23 % (24-48) Monocytes (%) (Auto) 8 % (0-9) Eosinophils (%) (Auto) 2 % (0-3) Basophils (%) (Auto) 1 % (0-3) Neutrophils # (Auto) 5.7 x10^3uL (1.8-7.7) Lymphocytes # (Auto) 2.0 x10^3/uL (1.0-4.8) Monocytes # (Auto) 0.7 x10^3/uL (0.0-1.1) Eosinophils # (Auto) 0.2 x10^3/uL (0.0-0.7) Basophils # (Auto) 0.1 x10^3/uL (0.0-0.2) Sodium Level 147 mmol/L (136-145) Potassium Level 3.2 mmol/L (3.5-5.1) Chloride Level 115 mmol/L (98-107) Carbon Dioxide Level 21 mmol/L (21-32) Anion Gap 11 (6-14) Blood Urea Nitrogen 46 mg/dL (7-20) Creatinine 3.1 mg/dL (0.6-1.0) Estimated GFR (Cockcroft-Gault) 14.8 BUN/Creatinine Ratio 15 (6-20) Glucose Level 106 mg/dL (70-99) Calcium Level 6.6 mg/dL (8.5-10.1) Magnesium Level 1.9 mg/dL (1.8-2.4) Total Bilirubin 0.2 mg/dL (0.2-1.0) Aspartate Amino Transf (AST/SGOT) 18 U/L (15-37) Alanine Aminotransferase (ALT/SGPT) 24 U/L (14-59) Alkaline Phosphatase 113 U/L (46-116) Total Protein 5.7 g/dL (6.4-8.2) Albumin 2.3 g/dL (3.4-5.0) Albumin/Globulin Ratio 0.7 (1.0-1.7) Images CXR - IMPRESSION: 1. Mild cardiomegaly. 2. No acute abnormality is detected. EKG- sinus rhythm RBBB Assessment/Plan 1. abn EKG - RBBB without acute ischemic changes 2. accelerated hypertension - add beta william 3. seizure like activity - neuro consulted 4. ARF - as per PCP 5. hypokalemia - replacement per PCP Will check echocardiogram and add oral beta william. If she refuses oral route may consider IV. Due to her mental status and apparent refusal of medications will recommend conservative management at this time. Problems: TATIANA DE LOS SANTOS MD 02/26/17 1145: CONSULT Allergies: Coded Allergies: No Known Drug Allergies (Unverified , 05/24/16) Assessment/Plan Pt. seen and examined. Agree with above CURATOR OF EDUCATION note. Thanks for consult. Conservative mgmt. Metoprolol suboptimal for BP mgmt. Suggest coreg or hydralazine prn if metop does not achieve goal pressures. Clonidine patch appropriate given pt's refusal to take meds. Problems: NICKIE ARMIJO APRN Feb 26, 2017 10:29 TATIANA DE LOS SANTOS MD Feb 26, 2017 11:45
[2017-02-26] MEDS: METOPROLOL TART IMMED RELEASE 25 MG TABLET PO SCH ×2 (10:55→20:28)
[2017-02-26 11:00] VITALS: BP 165/78
[2017-02-26] MEDS ORDERED: POTASSIUM CL 40MEQ IN D5W 1,000 ML IV SCH (11:30)
[2017-02-26] MEDS: POTASSIUM CL 20MEQ IN D5W 1,000 ML IV SCH (11:59)
[2017-02-26 12:30] LABS: CALCIUM 6.6 mg/dL (8.5-10.1); GFR 15.3; POTASSIUM 3.5 mmol/L (3.5-5.1)
[2017-02-26] MEDS ORDERED: HALOPERIDOL LACT 5 MG/ML VIAL. IM PRN (15:30)
[2017-02-26] MEDS: HALOPERIDOL LACT 5 MG/ML VIAL. IV PRN (15:58)
[2017-02-26 16:01] VITALS: BP 185/67
--- NOTE | 2017-02-26 16:36 | CARD ---
APPROVED REPORT EXAM: Two-dimensional and M-mode echocardiogram with Doppler and color Doppler. Other Information Quality : Limited Rhythm : NSR INDICATION Hypertension/HCVD 2D DIMENSIONS RVDd2.9 (2.9-3.5cm)Left Atrium(2D)3.1 (1.6-4.0cm) IVSd1.2 (0.7-1.1cm)Aortic Root(2D)2.7 (2.0-3.7cm) LVDd4.0 (3.9-5.9cm)LVOT Diameter2.0 (1.8-2.4cm) PWd1.2 (0.7-1.1cm)LVDs2.2 (2.5-4.0cm) SV51.5 mlLVEF(%)65.7 (>50%) Aortic Valve AoV Peak Caio.95.6cm/sAoV VTI19.9cm AO Peak GR.3.7mmHgLVOT Peak Caio.86.3cm/s LVOT VTI 19.67cmAO Mean GR.2mmHg CHARMAINE (VMAX)2.51iv4VEL (VTI)2.97cm2 Mitral Valve MV E Wxynzifc673.9cm/sMV DECEL [id number] MV A Uvpdkbnz419.8cm/sMV [id number] E/A Ratio1.1MV A [id number] MVA (PHT)3.31cm2 LEFT VENTRICLE The left ventricle is normal size. There is borderline concentric left ventricular hypertrophy. Left ventricle systolic function is normal. The Ejection Fraction is 60-65%. There is normal LV segmental wall motion. The left ventricular diastolic function and filling is normal for age. There is no ventr icular septal defect visualized. RIGHT VENTRICLE The right ventricle is normal size. The right ventricular systolic function is normal. ATRIA The left atrium size is normal. The right atrium size is normal. The interatrial septum is intact wit h no evidence for an atrial septal defect or patent foramen ovale as noted on 2-D or Doppler imaging. AORTIC VALVE The aortic valve is mildly sclerotic. The aortic valve is trileaflet. Doppler and Color Flow revealed no significant aortic regurgitation. There is no significant aortic valvular stenosis. MITRAL VALVE Mitral annular calcification is mild. The mitral valve leaflets are thickened and calcified. There is no mitral valve stenosis. Doppler and Color Flow revealed mild mitral regurgitation. TRICUSPID VALVE The tricuspid valve is not well visualized. Doppler and Color Flow revealed no tricuspid valve regurg itation noted. There is no tricuspid valve stenosis. PULMONIC VALVE The pulmonic valve is not well visualized. Doppler and Color Flow revealed no pulmonic valvular regur gitation. There is no pulmonic valvular stenosis. GREAT VESSELS The aortic root is normal in size. Pulmonary veins not recorded. The IVC is normal in size and collap ses >50% with inspiration. PERICARDIAL EFFUSION There is no evidence of significant pericardial effusion. Critical Notification Critical Value: No <Conclusion> The left ventricle is normal size. Left ventricle systolic function is normal. The Ejection Fraction is 60-65%. There is borderline concentric left ventricular hypertrophy. There is no significant aortic valvular stenosis. Doppler and Color Flow revealed no significant aortic regurgitation. Doppler and Color Flow revealed mild mitral regurgitation. Doppler and Color Flow revealed no tricuspid valve regurgitation noted.
--- NOTE | 2017-02-26 17:02 | RAD ---
Indication left leg swelling and redness. Grayscale color Doppler and spectral imaging was performed. The study was slightly compromised. The patient did not cooperate for the study. The common femoral, femoral and popliteal vessels demonstrate normal flow compressibility and augmentation. No thrombus was seen. The popliteal vein appeared normal. The visualized calf veins appeared unremarkable. IMPRESSION: Slightly limited study. No definite DVT seen in the left lower extremity
[2017-02-26] MEDS: ENOXAPARIN 30 MG/0.3 ML DISP.SYRIN. SQ SCH (20:26)
[2017-02-26 21:00] VITALS: BP 169/83
--- NOTE | 2017-02-27 00:41 | PN ---
DATE: 02/26/2017 SUBJECTIVE: The patient has not had any recurrent seizure. She continues to be confused and disoriented and has had urinary incontinence. OBJECTIVE: GENERAL: Well-developed, well-nourished white female, not in acute distress. VITAL SIGNS: Blood pressure 175/80, respiratory rate 18, pulse is 82, temperature 98.5, oxygen saturation 97% on room air. HEENT: Normocephalic, atraumatic, otherwise, unremarkable. NECK: Supple. Negative for carotid bruit, lymphadenopathy or thyromegaly. LUNGS: Clear to A and P. CARDIOVASCULAR: Regular rate and rhythm, normal S1, S2. There is no S3, S4 or murmur. ABDOMEN: Soft. Bowel sounds positive. EXTREMITIES: Negative for cyanosis, clubbing or pitting edema. NEUROLOGICAL EXAM: Mental Status: The patient is alert, but disoriented to time, place and person. Speech is fluent. There is no apparent language dysfunctions, otherwise, the evaluation is very limited because of underlying dementia, same for judgment. Abstract thinking and memory are impaired. Cranial nerves are grossly intact. No focal motor or sensory deficit. Deep tendon reflexes are symmetric and active with absent Achilles responses. Gait: The patient has a steady stance. LABORATORY DATA: CBC revealed white cells of 8.7 thousand, hemoglobin 8.7, hematocrit 24.7, platelet count 168,000. Chemistry revealed sodium of 147, potassium 3.2, chloride 115, CO2 of 21. BUN 46, creatinine 3.1, glucose is 106, calcium is 6.6. Troponin level is 0.04. IMPRESSION: 1. Seizure-like activities, etiology uncertain probably due to underlying urinary tract infections. 2. Dementia. 3. Chronic and possible acute renal failure. 4. Multiple medical problems include diabetes mellitus, hypertension, hypocalcemia, hyperlipidemia. 5. History of seizure of unknown etiology. 6. Anemia, probably of chronic disease type versus chronic renal failure. RECOMMENDATIONS: 1. Treat the underlying urinary tract infection. 2. Correct the underlying metabolic derangement as hypokalemia, hypocalcemia. 3. Await for EEG today. M Larry HERRERA MD DR: MATTY/jamir JOB#: [id number] / [id number]
[2017-02-27] MEDS: POTASSIUM CL 20MEQ IN D5W 1,000 ML IV SCH ×2 (01:17→15:50)
--- NOTE | 2017-02-27 01:43 | PN ---
DATE: 02/26/2017 SUBJECTIVE: The patient is resting and slightly propped up in bed, in no apparent distress. She is awake and alert, but very confused. The nursing staff did not voice any concern and stated that she has an uneventful night. They also said that she has severe intertriginous candidiasis under her breasts and both groin areas. PHYSICAL EXAMINATION: GENERAL: When I examined her, she was pale, but not jaundiced, cyanosis, or thyromegaly. No jugular venous distension. No limb edema. VITAL SIGNS: Her heart rate was 82, blood pressure was 75/80, temperature was 98.5, respiratory rate was 18, and oxygen saturation was 97% on room air. HEAD, EYES, EARS, NOSE, AND THROAT: Showed normocephalic and atraumatic. NECK: Supple. HEART: Showed normal first and second heart sounds with no gallop, rub, or murmur. CHEST: Clear to auscultation. No crepitation or rhonchi. ABDOMEN: Distended, soft, and nontender. NEUROLOGIC: She is very demented, but without any obvious lateralizing signs. Her cranial nerves are intact. She moves extremities without difficulty. She ambulates without assistance or assistive devices. Examination of skin showed that she has intertrigo candidiasis below her breast and both groin areas. Her intake over the last 24 hours was 550. No output was recorded. LABORATORY DATA: Her lab work this morning showed that her serum sodium is up to 147, potassium 3.2, chloride 115, bicarbonate 21, anion gap of 11, BUN 46, creatinine was 3.1. Her estimated GFR was 14.83 mL per minute. Her glucose 106, calcium was 6.6, and magnesium was 1.9. Total bilirubin, AST, ALT, and alkaline phosphatase were normal. Total protein was 5.7 and albumin was 2.3. Her white cell count was 8700, hemoglobin 8.7, hematocrit 24.7, MCV 91, and platelet count 268,000. ASSESSMENT: 1. Urinary tract infection for which she is currently on ceftriaxone 1 gram IV once a day. 2. Normochromic normocytic anemia with hemoglobin that dropped down to 8.7 and hematocrit 24.7. 3. Acute kidney injury, resolving. 4. Hypomagnesemia, improved. Her serum magnesium is up to 1.9. Lactic acidosis quickly normalized. 5. Hypernatremia. 6. Hypokalemia. PLAN: My plan is to continue with IV fluid in the form of D5W with 20 mEq of potassium chloride at 75. Encouraged her water intake. Continue with ceftriaxone. Monitor her lab work and decide on further management accordingly. Once we have the culture results, we will switch her to oral antibiotics. AMY CAMERON MD DR: PAVAN/jamir JOB#: [id number] / [id number]
[2017-02-27 05:59] VITALS: BP 142/74
[2017-02-27 06:38] LABS: HEMATOCRIT 25.1 % (36.0-47.0); HEMOGLOBIN 8.8 g/dL (12.0-15.5); RED BLOOD COUNT 2.72 x10^6/uL (3.50-5.40); RED CELL DISTRIBUTION WIDTH 14.2 % (11.5-14.5)
[2017-02-27 06:53] LABS: CALCIUM 6.7 mg/dL (8.5-10.1); GFR 15.3; MAGNESIUM 1.5 mg/dL (1.8-2.4); POTASSIUM 3.8 mmol/L (3.5-5.1)
[2017-02-27] MEDS: NYSTATIN TOPICAL POWDER 15GM BOTTLE. TP SCH ×2 (08:56→20:36)
[2017-02-27] MEDS: METOPROLOL TART IMMED RELEASE 25 MG TABLET PO SCH ×2 (08:56→19:18)
[2017-02-27 10:02] VITALS: BP 156/77
--- NOTE | 2017-02-27 11:30 | PDOC ---
NICKIE ARMIJO PATHOLOGY LABORATORY DIRECTOR 02/27/17 1130: PROGRESS NOTES Diagnosis Problem Problems Medical Problems: (1) Acute on chronic renal failure Status: Acute (2) Hypomagnesemia Status: Acute (3) Seizure Status: Acute (4) Uncontrolled diabetes mellitus Status: Acute (5) UTI (urinary tract infection) Status: Acute Assessment Problems Medical Problems: (1) Acute on chronic renal failure Status: Acute (2) Hypomagnesemia Status: Acute (3) Seizure Status: Acute (4) Uncontrolled diabetes mellitus Status: Acute (5) UTI (urinary tract infection) Status: Acute 1. abn EKG - RBBB without acute ischemic changes, ECHO reveals normal LV function and wall motion. 2. accelerated hypertension - blood pressures improved. add PRN hydralazine. 3. seizure like activity - neuro following 4. ARF - as per PCP 5. hypokalemia - replacement per PCP 6. dementia - per PCP Continue conservative management. continue current medications and consider increase Catapres patch as needed. Problems: Subjective "doing great", remains pleasantly confused. Objective Vital Signs Date Time Temp Pulse Resp B/P (MAP) Pulse Ox O2 Delivery O2 Flow Rate FiO2 02/27/17 10:02 98.3 69 18 156/77 (103) 99 Room Air Abdomen: Normal bowel sounds, Soft Heart: Regular rate, Normal S1, Normal S2 General: Alert, Cooperative, No acute distress Lungs: Clear to auscultation Neuro: Normal speech Psych/Mental Status: Other (confused) Review of Relevant I have reviewed the following items tanner (where applicable) has been applied. Labs Laboratory Tests Test 02/25/17 13:20 02/25/17 13:24 02/25/17 13:30 02/25/17 14:55 Stool Occult Blood Negative (NEG) Urine Collection Type U cath Urine Color Straw Urine Clarity Turbid Urine pH 5.5 Urine Specific Hitchcock 1.025 Urine Protein >100 mg/dl (NEG-TRACE) Urine Glucose (UA) 100 mg/dL (NEG) Urine Ketones (Stick) Neg mg/dL (NEG) Urine Blood Mod (NEG) Urine Nitrite Neg (NEG) Urine Bilirubin Neg (NEG) Urine Urobilinogen Dipstick 0.2 mg/dL (0.2 mg/dL) Urine Leukocyte Esterase Mod (NEG) Urine RBC 6-10 /HPF (0-2) Urine WBC Tntc /HPF (0-4) Urine Squamous Epithelial Cells Few /LPF Urine Transitional Epithelial Cells Occ /LPF Urine Bacteria Many /HPF (0-FEW) Urine Hyaline Casts Few /HPF Urine Opiates Screen Neg (NEG) Urine Methadone Screen Neg (NEG) Urine Barbiturates Neg (NEG) Urine Phencyclidine Screen Neg (NEG) Urine Amphetamine/Methamphetamine Neg (NEG) Urine Benzodiazepines Screen Neg (NEG) Urine Cocaine Screen Neg (NEG) Urine Cannabinoids Screen Neg (NEG) Urine Ethyl Alcohol Neg (NEG) White Blood Count 9.1 x10^3/uL (4.0-11.0) Red Blood Count 3.18 x10^6/uL (3.50-5.40) Hemoglobin 10.2 g/dL (12.0-15.5) Hematocrit 28.9 % (36.0-47.0) Mean Corpuscular Volume 91 fL (79-100) Mean Corpuscular Hemoglobin 32 pg (25-35) Mean Corpuscular Hemoglobin Concent 35 g/dL (31-37) Red Cell Distribution Width 14.3 % (11.5-14.5) Platelet Count 179 x10^3/uL (140-400) Neutrophils (%) (Auto) 87 % (31-73) Lymphocytes (%) (Auto) 9 % (24-48) Monocytes (%) (Auto) 3 % (0-9) Eosinophils (%) (Auto) 0 % (0-3) Basophils (%) (Auto) 0 % (0-3) Neutrophils # (Auto) 7.9 x10^3uL (1.8-7.7) Lymphocytes # (Auto) 0.8 x10^3/uL (1.0-4.8) Monocytes # (Auto) 0.3 x10^3/uL (0.0-1.1) Eosinophils # (Auto) 0.0 x10^3/uL (0.0-0.7) Basophils # (Auto) 0.0 x10^3/uL (0.0-0.2) Sodium Level 145 mmol/L (136-145) Potassium Level 4.0 mmol/L (3.5-5.1) Chloride Level 111 mmol/L (98-107) Carbon Dioxide Level 20 mmol/L (21-32) Anion Gap 14 (6-14) Blood Urea Nitrogen 52 mg/dL (7-20) Creatinine 3.5 mg/dL (0.6-1.0) Estimated GFR (Cockcroft-Gault) 12.8 BUN/Creatinine Ratio 15 (6-20) Glucose Level 240 mg/dL (70-99) Lactic Acid Level 3.3 mmol/L (0.4-2.0) Calcium Level 6.8 mg/dL (8.5-10.1) Phosphorus Level 5.4 mg/dL (2.6-4.7) Magnesium Level 1.3 mg/dL (1.8-2.4) Total Bilirubin 0.2 mg/dL (0.2-1.0) Aspartate Amino Transf (AST/SGOT) 24 U/L (15-37) Alanine Aminotransferase (ALT/SGPT) 34 U/L (14-59) Alkaline Phosphatase 143 U/L (46-116) Troponin I Quantitative < 0.017 ng/mL (0-0.055) PE-Qzx-R-Type Natriuretic Peptide 1631 pg/mL (0-124) Total Protein 6.6 g/dL (6.4-8.2) Albumin 2.9 g/dL (3.4-5.0) Albumin/Globulin Ratio 0.8 (1.0-1.7) Prothrombin Time 9.9 SEC (9.4-11.4) Prothromb Time International Ratio 1.0 (0.9-1.1) Activated Partial Thromboplast Time 28 SEC (23-33) Test 02/25/17 17:15 02/25/17 20:10 02/26/17 02:15 02/26/17 05:56 Lactic Acid Level 1.0 mmol/L (0.4-2.0) Troponin I Quantitative 0.035 ng/mL (0-0.055) 0.043 ng/mL (0-0.055) White Blood Count 8.7 x10^3/uL (4.0-11.0) Red Blood Count 2.72 x10^6/uL (3.50-5.40) Hemoglobin 8.7 g/dL (12.0-15.5) Hematocrit 24.7 % (36.0-47.0) Mean Corpuscular Volume 91 fL (79-100) Mean Corpuscular Hemoglobin 32 pg (25-35) Mean Corpuscular Hemoglobin Concent 35 g/dL (31-37) Red Cell Distribution Width 14.4 % (11.5-14.5) Platelet Count 168 x10^3/uL (140-400) Neutrophils (%) (Auto) 66 % (31-73) Lymphocytes (%) (Auto) 23 % (24-48) Monocytes (%) (Auto) 8 % (0-9) Eosinophils (%) (Auto) 2 % (0-3) Basophils (%) (Auto) 1 % (0-3) Neutrophils # (Auto) 5.7 x10^3uL (1.8-7.7) Lymphocytes # (Auto) 2.0 x10^3/uL (1.0-4.8) Monocytes # (Auto) 0.7 x10^3/uL (0.0-1.1) Eosinophils # (Auto) 0.2 x10^3/uL (0.0-0.7) Basophils # (Auto) 0.1 x10^3/uL (0.0-0.2) Sodium Level 147 mmol/L (136-145) Potassium Level 3.2 mmol/L (3.5-5.1) Chloride Level 115 mmol/L (98-107) Carbon Dioxide Level 21 mmol/L (21-32) Anion Gap 11 (6-14) Blood Urea Nitrogen 46 mg/dL (7-20) Creatinine 3.1 mg/dL (0.6-1.0) Estimated GFR (Cockcroft-Gault) 14.8 BUN/Creatinine Ratio 15 (6-20) Glucose Level 106 mg/dL (70-99) Calcium Level 6.6 mg/dL (8.5-10.1) Magnesium Level 1.9 mg/dL (1.8-2.4) Total Bilirubin 0.2 mg/dL (0.2-1.0) Aspartate Amino Transf (AST/SGOT) 18 U/L (15-37) Alanine Aminotransferase (ALT/SGPT) 24 U/L (14-59) Alkaline Phosphatase 113 U/L (46-116) Total Protein 5.7 g/dL (6.4-8.2) Albumin 2.3 g/dL (3.4-5.0) Albumin/Globulin Ratio 0.7 (1.0-1.7) Test 9/11/17 11:55 02/26/17 12:09 02/26/17 19:48 02/27/17 06:08 Glucose (Fingerstick) 149 mg/dL (70-99) 168 mg/dL (70-99) Sodium Level 145 mmol/L (136-145) 139 mmol/L (136-145) Potassium Level 3.5 mmol/L (3.5-5.1) 3.8 mmol/L (3.5-5.1) Chloride Level 114 mmol/L (98-107) 109 mmol/L (98-107) Carbon Dioxide Level 21 mmol/L (21-32) 20 mmol/L (21-32) Anion Gap 10 (6-14) 10 (6-14) Blood Urea Nitrogen 45 mg/dL (7-20) 44 mg/dL (7-20) Creatinine 3.0 mg/dL (0.6-1.0) 3.0 mg/dL (0.6-1.0) Estimated GFR (Cockcroft-Gault) 15.3 15.3 Glucose Level 147 mg/dL (70-99) 146 mg/dL (70-99) Calcium Level 6.6 mg/dL (8.5-10.1) 6.7 mg/dL (8.5-10.1) White Blood Count 8.0 x10^3/uL (4.0-11.0) Red Blood Count 2.72 x10^6/uL (3.50-5.40) Hemoglobin 8.8 g/dL (12.0-15.5) Hematocrit 25.1 % (36.0-47.0) Mean Corpuscular Volume 92 fL (79-100) Mean Corpuscular Hemoglobin 32 pg (25-35) Mean Corpuscular Hemoglobin Concent 35 g/dL (31-37) Red Cell Distribution Width 14.2 % (11.5-14.5) Platelet Count 162 x10^3/uL (140-400) Magnesium Level 1.5 mg/dL (1.8-2.4) Test 02/27/17 07:23 Glucose (Fingerstick) 156 mg/dL (70-99) Microbiology 02/25/17 Urine Culture - Preliminary, Resulted 02/25/17 Urine Culture Result 1 (ELIZ) - Preliminary, Resulted Medications Current Medications Nystatin/ Triamcinolone Acetonide (Mycolog Ii) 1 fuad 1X ONCE TP Last administered on 02/25/17 13:30; Start 02/25/17 at 13:30; Stop 02/25/17 at 13:31 ; Status DC Sodium Chloride 500 ml @ 0 mls/hr 1X ONCE IV Last administered on 02/25/17 15 :29; Start 02/25/17 at 15:30; Stop 02/25/17 at 15:31; Status DC Sodium Chloride 1,000 ml @ 100 mls/hr 1X ONCE IV ; Start 02/25/17 at 15:30; Stop 02/26/17 at 11:30; Status DC Ceftriaxone Sodium 1 gm/ Sodium Chloride 50 ml @ 100 mls/hr 1X ONCE IV Last administered on 02/25/17 15:30; Start 02/25/17 at 15:30; Stop 02/25/17 at 15:59 ; Status DC Sodium Chloride 50 ml @ As Directed STK-MED ONCE .ROUTE ; Start 02/25/17 at 15: 14; Stop 02/25/17 at 15:15; Status DC Ceftriaxone Sodium (Rocephin) 1 gm STK-MED ONCE IV ; Start 02/25/17 at 15:14; Stop 02/25/17 at 15:15; Status DC Ondansetron HCl (Zofran) 4 mg PRN Q4HRS PRN IV NAUSEA/VOMITING; Start 02/25/17 at 15:30; Stop 02/26/17 at 15:29; Status DC Sodium Chloride 1,000 ml @ 100 mls/hr Q10H IV ; Start 02/25/17 at 15:18; Stop 02/25/17 at 20:45; Status DC Acetaminophen (Tylenol) 650 mg PRN Q4HRS PRN PO FEVER; Start 02/25/17 at 15:30 ; Stop 02/26/17 at 15:29; Status DC Insulin Aspart (NovoLOG) 0-5 UNITS QIDPRN PRN SQ PER PROTOCOL; Start 02/25/17 at 15:30 Dextrose 12.5 gm PRN Q15MIN PRN IV SEE COMMENTS; Start 02/25/17 at 15:30 Magnesium Sulfate/ Dextrose 100 ml @ 100 mls/hr 1X ONCE IV ; Start 02/25/17 at 15:45; Stop 02/25/17 at 16:44; Status DC Clonidine HCl (Catapres Tts-1) 1 patch WEEKLY TD Last administered on 20:24; Start 02/25/17 at 20:00 Ceftriaxone Sodium 1 gm/ Sodium Chloride 50 ml @ 100 mls/hr Q24H IV Last administered on 02/26/17 15:56; Start 02/26/17 at 15:00 Sodium Chloride 1,000 ml @ 125 mls/hr Q8H IV Last administered on 02/26/17 01 :56; Start 02/25/17 at 19:15; Stop 02/26/17 at 11:30; Status DC Magnesium Sulfate 50 ml @ 25 mls/hr 1X ONCE IV Last administered on 02/25/17 20:23; Start 02/25/17 at 20:00; Stop 02/25/17 at 21:59; Status DC Nystatin (Nystop) 1 fuad BID TP Last administered on 02/27/17 08:56; Start 04/03 at 21:00 Diphenhydramine HCl (Benadryl) 25 mg PRN Q6HRS PRN IVP ITCHING Last administered on 02/26/17 10:57; Start 02/25/17 at 19:30 Enoxaparin Sodium (Lovenox) 30 mg Q24H SQ Last administered on 02/26/17 20:26 ; Start 02/25/17 at 21:00 Potassium Chloride (Klor-Con) 10 meq 1X ONCE PO Last administered on 07:59; Start 02/26/17 at 07:30; Stop 02/26/17 at 07:31; Status DC Metoprolol Tartrate (Lopressor) 25 mg BID PO Last administered on 02/27/17 08: 56; Start 02/26/17 at 09:30 Potassium Chloride/Dextrose 1,000 ml @ 75 mls/hr [id number] IV ; Start 02/26/17 at 11:30; Stop 02/26/17 at 11:32; Status DC Potassium Chloride/Dextrose 1,000 ml @ 75 mls/hr [id number] IV Last administered on 02/27/17 01:17; Start 02/26/17 at 12:00 Haloperidol Lactate (Haldol) 5 mg PRN Q4HRS PRN IM AGITATION; Start 02/26/17 at 15:30; Stop 02/26/17 at 15:53; Status DC Haloperidol Lactate (Haldol) 5 mg PRN Q4HRS PRN IV AGITATION Last administered on 02/26/17t 15:58; Start 02/26/17 at 16:00 Hydralazine HCl (Apresoline) 10 mg PRN Q4HRS PRN IV ELEVATED BP, SEE COMMENTS; Start 02/27/17 at 09:30 Active Scripts Active Reported Glipizide Er (Glipizide) 5 Mg Tab.er.24 1 Tab PO DAILY LAST DOSE GIVEN: Did not receive NEXT DOSE DUE: DATE: tomorrow TIME: 8am Carvedilol 25 Mg Tablet 1 Tab PO BID Vitals/I & O Vital Sign - Last 24 Hours 02/26/17 02/26/17 02/26/17 02/26/17 16:01 19:20 19:20 20:28 Temp 98.3 Pulse 64 70 70 Resp 20 B/P (MAP) 185/67 (106) 169/83 Pulse Ox 97 O2 Delivery Room Air Room Air 02/26/17 02/26/17 02/27/17 02/27/17 21:00 23:26 03:12 05:59 Temp 98.7 97.2 Pulse 64 67 68 Resp 18 20 20 B/P (MAP) 169/83 (111) 142/74 (96) Pulse Ox 96 94 O2 Delivery Room Air Room Air Room Air 02/27/17 02/27/17 02/27/17 08:00 08:56 10:02 Temp 98.3 Pulse 68 69 Resp 18 B/P (MAP) 142/74 156/77 (103) Pulse Ox 99 O2 Delivery Room Air Room Air AWAIS BYNUM MD 02/27/17 1600: PROGRESS NOTES Assessment Patient seen and examined. Agree with POWDER CARRIER's assessment and plan. 2D echo showed normal LV function as stated above BP elevated. Add norvasc 5 mg daily for better control Problems: NICKIE ARMIJO APRN Feb 27, 2017 11:30 AWAIS BYNUM MD Feb 27, 2017 16:00
[2017-02-27] MEDS: HALOPERIDOL LACT 5 MG/ML VIAL. IV PRN (12:31)
[2017-02-27 15:26] VITALS: BP 186/77
[2017-02-27] MEDS: amLODIPine BESYLATE 5 MG TABLET PO SCH (16:20)
[2017-02-27 18:51] VITALS: BP 196/86
[2017-02-27] MEDS: hydrALAZINE 20 MG/ML VIAL. IV PRN (18:58)
--- NOTE | 2017-02-27 19:18 | PDOC ---
Exam Pino Demential Exam: Pino Note: Please also refer to the separate dictated note~for this date of service dictated separately.~Patient seen individually. Discussed the patient with Nursing staff reviewed the chart.~Reviewed interim history and current functioning. Reviewed vital signs,~Labs/ Radiology~and current medications noted below. Continue current treatment with the changes noted in the dictated addendum note Assessment: Vital Signs: Vital Signs Date Time Temp Pulse Resp B/P (MAP) Pulse Ox O2 Delivery O2 Flow Rate FiO2 02/27/17 18:58 73 196/86 02/27/17 15:26 97.6 20 99 Room Air I&O Intake and Output 02/28/17 07:00 Intake Total 1560 ml Output Total 1000 ml Balance 560 ml Intake Oral 1560 ml Output Urine Total 1000 ml # Bowel Movements 1 Labs: Laboratory Tests Test 02/26/17 19:48 02/27/17 06:08 02/27/17 07:23 02/27/17 11:33 Glucose (Fingerstick) 168 mg/dL (70-99) H 156 mg/dL (70-99) H 201 mg/dL (70-99) H White Blood Count 8.0 x10^3/uL (4.0-11.0) Red Blood Count 2.72 x10^6/uL (3.50-5.40) L Hemoglobin 8.8 g/dL (12.0-15.5) L Hematocrit 25.1 % (36.0-47.0) L Mean Corpuscular Volume 92 fL (79-100) Mean Corpuscular Hemoglobin 32 pg (25-35) Mean Corpuscular Hemoglobin Concent 35 g/dL (31-37) Red Cell Distribution Width 14.2 % (11.5-14.5) Platelet Count 162 x10^3/uL (140-400) Sodium Level 139 mmol/L (136-145) Potassium Level 3.8 mmol/L (3.5-5.1) Chloride Level 109 mmol/L (98-107) H Carbon Dioxide Level 20 mmol/L (21-32) L Anion Gap 10 (6-14) Blood Urea Nitrogen 44 mg/dL (7-20) H Creatinine 3.0 mg/dL (0.6-1.0) H Estimated GFR (Cockcroft-Gault) 15.3 Glucose Level 146 mg/dL (70-99) H Calcium Level 6.7 mg/dL (8.5-10.1) L Magnesium Level 1.5 mg/dL (1.8-2.4) L Current Medications: Meds: Current Medications Nystatin/ Triamcinolone Acetonide (Mycolog Ii) 1 fuad 1X ONCE TP Last administered on 02/25/17 13:30; Start 02/25/17 at 13:30; Stop 02/25/17 at 13:31 ; Status DC Sodium Chloride 500 ml @ 0 mls/hr 1X ONCE IV Last administered on 02/25/17 15 :29; Start 02/25/17 at 15:30; Stop 02/25/17 at 15:31; Status DC Sodium Chloride 1,000 ml @ 100 mls/hr 1X ONCE IV ; Start 02/25/17 at 15:30; Stop 02/26/17 at 11:30; Status DC Ceftriaxone Sodium 1 gm/ Sodium Chloride 50 ml @ 100 mls/hr 1X ONCE IV Last administered on 02/25/17 15:30; Start 02/25/17 at 15:30; Stop 02/25/17 at 15:59 ; Status DC Sodium Chloride 50 ml @ As Directed STK-MED ONCE .ROUTE ; Start 02/25/17 at 15: 14; Stop 02/25/17 at 15:15; Status DC Ceftriaxone Sodium (Rocephin) 1 gm STK-MED ONCE IV ; Start 02/25/17 at 15:14; Stop 02/25/17 at 15:15; Status DC Ondansetron HCl (Zofran) 4 mg PRN Q4HRS PRN IV NAUSEA/VOMITING; Start 02/25/17 at 15:30; Stop 02/26/17 at 15:29; Status DC Sodium Chloride 1,000 ml @ 100 mls/hr Q10H IV ; Start 02/25/17 at 15:18; Stop 02/25/17 at 20:45; Status DC Acetaminophen (Tylenol) 650 mg PRN Q4HRS PRN PO FEVER; Start 02/25/17 at 15:30 ; Stop 02/26/17 at 15:29; Status DC Insulin Aspart (NovoLOG) 0-5 UNITS QIDPRN PRN SQ PER PROTOCOL; Start 02/25/17 at 15:30 Dextrose 12.5 gm PRN Q15MIN PRN IV SEE COMMENTS; Start 02/25/17 at 15:30 Magnesium Sulfate/ Dextrose 100 ml @ 100 mls/hr 1X ONCE IV ; Start 02/25/17 at 15:45; Stop 02/25/17 at 16:44; Status DC Clonidine HCl (Catapres Tts-1) 1 patch WEEKLY TD Last administered on 20:24; Start 02/25/17 at 20:00 Ceftriaxone Sodium 1 gm/ Sodium Chloride 50 ml @ 100 mls/hr Q24H IV Last administered on 02/27/17 15:51; Start 02/26/17 at 15:00 Sodium Chloride 1,000 ml @ 125 mls/hr Q8H IV Last administered on 02/26/17 01 :56; Start 02/25/17 at 19:15; Stop 02/26/17 at 11:30; Status DC Magnesium Sulfate 50 ml @ 25 mls/hr 1X ONCE IV Last administered on 02/25/17 20:23; Start 02/25/17 at 20:00; Stop 02/25/17 at 21:59; Status DC Nystatin (Nystop) 1 fuad BID TP Last administered on 02/27/17 08:56; Start 04/03 at 21:00 Diphenhydramine HCl (Benadryl) 25 mg PRN Q6HRS PRN IVP ITCHING Last administered on 02/26/17 10:57; Start 02/25/17 at 19:30 Enoxaparin Sodium (Lovenox) 30 mg Q24H SQ Last administered on 02/26/17 20:26 ; Start 02/25/17 at 21:00 Potassium Chloride (Klor-Con) 10 meq 1X ONCE PO Last administered on 07:59; Start 02/26/17 at 07:30; Stop 02/26/17 at 07:31; Status DC Metoprolol Tartrate (Lopressor) 25 mg BID PO Last administered on 02/27/17 08: 56; Start 02/26/17 at 09:30 Potassium Chloride/Dextrose 1,000 ml @ 75 mls/hr [id number] IV ; Start 02/26/17 at 11:30; Stop 02/26/17 at 11:32; Status DC Potassium Chloride/Dextrose 1,000 ml @ 75 mls/hr [id number] IV Last administered on 02/27/17 15:50; Start 02/26/17 at 12:00 Haloperidol Lactate (Haldol) 5 mg PRN Q4HRS PRN IM AGITATION; Start 02/26/17 at 15:30; Stop 02/26/17 at 15:53; Status DC Haloperidol Lactate (Haldol) 5 mg PRN Q4HRS PRN IV AGITATION Last administered on 02/27/17 12:31; Start 02/26/17 at 16:00 Hydralazine HCl (Apresoline) 10 mg PRN Q4HRS PRN IV ELEVATED BP, SEE COMMENTS Last administered on 02/27/17 18:58; Start 02/27/17 at 09:30 Amlodipine Besylate (Norvasc) 5 mg DAILY PO Last administered on 02/27/17 16: 20; Start 02/27/17 at 16:20 Active Scripts Active Reported Glipizide Er (Glipizide) 5 Mg Tab.er.24 1 Tab PO DAILY LAST DOSE GIVEN: Did not receive NEXT DOSE DUE: DATE: tomorrow TIME: 8am Carvedilol 25 Mg Tablet 1 Tab PO BID Diagnosis: Problems: (1) Anxiety disorder (2) Dementia, vascular, with delusions (3) Dementia, vascular, with depression (4) Dementia in Alzheimer's disease with depression (5) Dementia in Alzheimer's disease with delusions (6) Impulse control disorder (7) UTI (urinary tract infection) (8) Seizure (9) Acute renal failure JASON HAWLEY MD Feb 27, 2017 19:18
[2017-02-27] MEDS: ENOXAPARIN 30 MG/0.3 ML DISP.SYRIN. SQ SCH (21:12)
[2017-02-27 22:55] VITALS: BP 164/74
--- NOTE | 2017-02-28 00:26 | PN ---
DATE: 02/27/2017 SUBJECTIVE: The patient is resting, slightly propped up in bed, in no apparent respiratory distress. She was presently confused, but denied any complaint. The nursing staff did not voice any concern and stated that she has an uneventful night. Her left lower extremity was somewhat more swollen according to her sister; however, we did a venous Doppler ultrasound, which showed that there is no definite deep vein thrombosis seen in the left lower extremity. PHYSICAL EXAMINATION: GENERAL: When I examined her, she was slightly pale, but not jaundiced, cyanosis, or thyromegaly. No jugular venous distention. No lower limb edema. VITAL SIGNS: Her heart rate was 69, blood pressure was 156/77, temperature was 98.3, respiratory rate was 18, and oxygen saturation was 99% on room air. HEAD, EYES, EARS, NOSE AND THROAT: Showed normocephalic, atraumatic. NECK: Supple. HEART: Showed normal first and second heart sounds with no gallop, rub or murmur. CHEST: Clear to auscultation. No crepitation or rhonchi. ABDOMEN: Slight distended, soft, and nontender. NEUROLOGIC: She is demented, but without any obvious lateralizing sign. All cranial nerves intact. She moves extremities without difficulty. She ambulates with assistance. Her intake over the last 24 hours was 2200, no output was recorded. LABORATORY DATA: As of this morning, her white cell count was 8000, hemoglobin 8.8, hematocrit 25, MCV 92, and platelet count of 163,000. Her chemistry showed a serum sodium 139, potassium 3.8, chloride 109, bicarbonate 20, anion gap of 10, BUN 44, creatinine 3, estimated GFR was 15 mL per minute. Her glucose 146. Calcium was 6.7, magnesium was 1.5. ASSESSMENT: 1. Urinary tract infection with growth of Klebsiella pneumoniae sensitive to all cephalosporins. 2. Normochromic normocytic anemia with hemoglobin and hematocrit of 8.8 and 25.1. 3. Acute on chronic kidney injury, her serum creatinine has plateaued around 3 mg/dL. 4. Hypomagnesemia, her serum magnesium has dropped down again to 1.5 mg/dL. She also has hypocalcemia, probably normal, corrected for her low serum albumin. 5. Hypernatremia, resolved. 6. Hypokalemia, resolved. Her serum sodium is down to 139 and potassium up to 3.8 mEq/dL. PLAN: My plan is to continue with IV fluid in the form of D5W plus 20 mEq of potassium chloride. Continue with IV Rocephin. I will repeat all her lab work tomorrow and if serum creatinine has plateaued, she might be able to be discharged home, to continue on oral antibiotic. AMY CAMERON MD DR: PAVAN/jamir JOB#: [id number] / [id number]
[2017-02-28] MEDS: diphenhydrAMINE 50 MG/ML VIAL IVP PRN (01:11)
[2017-02-28] MEDS: POTASSIUM CL 20MEQ IN D5W 1,000 ML IV SCH (04:56)
--- NOTE | 2017-02-28 05:18 | CONS ---
DATE OF CONSULTATION: 02/27/2017 This note covers elements not covered in my initial note of 02/27/2017. The patient was seen individually in the evening of 02/27/2017 for this evaluation. IDENTIFYING DATA: The patient is a 72-year-old female seen in bed [address] [facility] for a psychiatric consult requested by Dr. Ruiz on account of the patient's dementia, hallucinations, compulsive behaviors after she was admitted with an apparent seizure episode within the context of her UTI and a history of progressively worsening dementia. Despite this, she lives at home with her sister who is also in her 70s. Discussed with nursing staff, reviewed the chart. CHIEF COMPLAINT: "I am okay." Nursing staff state the patient has been grabbing at things around, has been hallucinating, very confused. HISTORY OF PRESENT ILLNESS: The patient has a history of dementia, Alzheimer's vascular type. She has been residing at home with her sister and the sister witnessed her having a seizure. She was lying on the couch and tonic-clonic seizure that lasted 2 to 4 minutes. She does have a previous history of seizure evaluated at [facility] for that. Since being in the hospital, she has been additionally diagnosed with UTI and has been more confused. She has had some sleep and appetite changes. No active suicidal or homicidal ideation. No history of bipolar disorder. PAST PSYCHIATRIC HISTORY: As above. MEDICAL HISTORY: UTI, seizure disorder, diabetes, kidney failure, dehydration, history of coronary artery disease. ALLERGIES: None. CURRENT PSYCHOTROPICS: Haldol IV p.r.n. She is a full code. FAMILY HISTORY: Noncontributory. SOCIAL HISTORY: No history of alcohol or drug abuse history is noted. Rest of her living arrangements noted above. MENTAL STATUS EXAMINATION: The patient is oriented to herself. She is unaware of the date or where she was or even what kind of facility this was. She is; otherwise, pleasant, grabbing at things in the air at times. Insight, judgment, recent and remote memory, attention, concentration, fund of knowledge poor, consistent with her diagnosis. No active suicidal or homicidal ideation. LABORATORY DATA: Reviewed. REVIEW OF SYSTEMS: No CV, , pulmonary, eye, ENT system symptoms on review. Reliability poor. IMPRESSION: Major neurocognitive disorder, Alzheimer, vascular with delusion, history of depression, behavioral disturbance; anxiety disorder, unspecified; impulse control disorder, unspecified. Rest diagnoses as noted above. PLAN: No change from a psychiatric standpoint. Once the patient is medically stable from UTI. We may consider transferring her to [facility] for further psychiatric stabilization and determining an appropriate level of care. If behaviors are disruptive, unmanageable before this happens, we may start her on low-dose Seroquel. Dr. Ruiz, thank you for the opportunity to participate in your patient's care. We will follow with you. JASON HAWLEY MD DR: NANCY/jamir JOB#: [id number] / [id number]
[2017-02-28] MEDS: hydrALAZINE 20 MG/ML VIAL. IV PRN (06:10)
[2017-02-28 06:11] VITALS: BP 183/89
[2017-02-28 07:14] LABS: ALBUMIN 2.8 g/dL (3.4-5.0); ALBUMIN/GLOBULIN RATIO 0.7 (1.0-1.7); CALCIUM 7.2 mg/dL (8.5-10.1); GFR 15.3; TOTAL BILIRUBIN 0.3 mg/dL (0.2-1.0); TOTAL PROTEIN 6.8 g/dL (6.4-8.2)
[2017-02-28 07:24] LABS: HEMATOCRIT 28.1 % (36.0-47.0); HEMOGLOBIN 10.1 g/dL (12.0-15.5); RED BLOOD COUNT 3.12 x10^6/uL (3.50-5.40); RED CELL DISTRIBUTION WIDTH 14.2 % (11.5-14.5); WHITE BLOOD COUNT 10.5 x10^3/uL (4.0-11.0)
[2017-02-28] MEDS: NYSTATIN TOPICAL POWDER 15GM BOTTLE. TP SCH (09:34)
[2017-02-28] MEDS: METOPROLOL TART IMMED RELEASE 25 MG TABLET PO SCH (09:35)
[2017-02-28] MEDS: amLODIPine BESYLATE 5 MG TABLET PO SCH (09:36)
[2017-02-28 10:10] VITALS: BP 165/81
[2017-02-28] MEDS ORDERED: CEFU500T46 PO (13:30)
--- NOTE | 2017-02-28 22:15 | DS ---
DATE OF DISCHARGE: 02/28/2017 HOSPITAL COURSE: The patient is a 72-year-old female patient, who was originally admitted for questionable seizure disorder, acute on chronic renal failure, hypomagnesemia and urinary tract infection, poorly controlled type 2 diabetes. She was started on IV fluid. She was also initially septic with lactic acidosis. She was started on IV fluid, IV antibiotic and her kidney function has steadily normalized. Her BUN came down from 52 to 43, creatinine came down from 3.53. Her magnesium also has normalized and her urine culture has grown more than 100,000 colony-forming units per mL of Klebsiella pneumoniae, sensitive to all antibiotics. I did contact her primary care physician and apparently her serum creatinine on June of this year was 2.6. She is known to have left-sided hydronephrosis with a stone at ureteropelvic junction for which she had a stent deployed and removed at [facility]. She was supposed to follow with urologist there, but apparently her sister did not take her there for some reason. I explained to the sister that kidney function has deteriorated and it is unlikely to improve further with IV antibiotic. Her urine culture grew bacteria that is sensitive to antibiotic that she is already on and we will discharge her to continue on oral antibiotics for another 5 days. She was seen in consultation by Dr. Pena. We did an EGD and I do not have the official report; however, we contacted his office and he stated that it is safer from his point of view for her to be discharged and to follow with his office as an outpatient. I recommended to the sister that she should follow up with her urologist as she might require stenting, although her kidneys might have been damaged by now. PHYSICAL EXAMINATION: GENERAL: When I examined her this afternoon, she looked well and was clearly in no apparent respiratory distress, pale, but no jaundice, cyanosis or thyromegaly. No jugular venous distention. No limb edema. VITAL SIGNS: Her heart rate was 82, blood pressure was 165/81, temperature was 98.2, respiratory rate 20 and oxygen saturation was 98%. HEAD, EYES, EARS, NOSE AND THROAT: Showed normocephalic, atraumatic. NECK: Supple. HEART: Showed normal first and second heart sounds with no gallop, rub or murmur. CHEST: Clear to auscultation. No crepitation or rhonchi. ABDOMEN: Distended, soft, nontender. No guarding or rigidity. No organomegaly. Hernial orifices intact. Bowel sounds normal. NEUROLOGIC: She was demented, but without any obvious lateralizing sign. All cranial nerves intact. He moves extremities without difficulty. She ambulates with minimal assistance. Her intake over the last 24 hours was 2900, output was 2100. LABORATORY DATA: This morning showed a serum sodium 140, potassium 4, chloride 109, bicarbonate 19, anion gap of 12, BUN 43, creatinine 3. Estimated GFR was 50 mL per minute. Her glucose 146. Calcium was 7.2. Magnesium, total bilirubin, AST, ALT, alkaline phosphatase were normal. Her total protein was 6.8, albumin 2.8. Her white cell count was 10,500, hemoglobin 10, hematocrit 28, MCV 90 and platelet count of 178,000. FINAL DISCHARGE DIAGNOSES: 1. Urinary tract infection with growth of Klebsiella pneumoniae sensitive to all cephalosporin. She will be discharged to continue on cefuroxime 500 mg 1 tablet once a day. 2. Normochromic normocytic anemia with hemoglobin of 10 and hematocrit of 28. 3. Acute kidney injury on chronic kidney disease. Her serum creatinine has plateaued around 3 mg/dL. 4. Hypomagnesemia. Her magnesium has risen from 1.3 to 1.9, dropped down again to 1.5. 5. Hypernatremia, resolved. 6. Hypokalemia, resolved. Her serum sodium is down to 139 and potassium is up to 3.8. DISCHARGE MEDICATIONS: The patient will be discharged to continue on her carvedilol as well as glipizide and she will be discharged on cefuroxime 500 mg once a day for another 5 days. AMY CAMERON MD DR: PAVAN/jamir JOB#: [id number] / [id number]
--- NOTE | 2017-03-01 00:42 | PN ---
DATE: 02/28/2017 SUBJECTIVE: The patient has not had any recurrent seizures since admission. She denies any new medical or neurological complaints. OBJECTIVE: GENERAL: Well-developed, well-nourished white female, not in acute distress. VITAL SIGNS: Blood pressure 183/89, respiratory rate 20, pulse is 71, temperature 97.8, oxygen saturation is 98% on room air. HEENT: Normocephalic, atraumatic, otherwise unremarkable. NECK: Supple. Negative for carotid bruit, lymphadenopathy or thyromegaly. LUNGS: Clear to A and P. CARDIOVASCULAR: Regular rate and rhythm, normal S1, S2. There is no S3, S4 or murmur. ABDOMEN: Soft. Bowel sounds positive. EXTREMITIES: Negative for cyanosis, clubbing or pitting edema. NEUROLOGIC: The patient is alert, but disoriented to time and place. Speech is fluent. There is no language dysfunction. Memory, judgment, and abstract thinking are impaired. The patient denies hallucination or delusion. Cranial nerves are intact. No focal motor or sensory deficit. Deep tendon reflexes were symmetric and active without pathologic responses. Gait and coordination are normal. LABORATORY DATA: CBC revealed white blood cells of 10.5, hemoglobin 10.1, hematocrit 28.1, platelet count is 178,000. Chemistry revealed sodium of 140, potassium 4, chloride 109, CO2 is 19, BUN 43, creatinine 3, glucose is 146. IMPRESSION: 1. Seizure-like activities, probably not epileptic. 2. Chronic renal failure and possible acute failure. 3. Dementia, anxiety, behavior disturbances. 4. Urinary tract infections. 5. Hypertension, diabetes mellitus, hyperlipidemia, and anemia of chronic type. 6. Negative EEG for seizure activities. RECOMMENDATIONS: 1. Continue with current management initiated by Dr. Ruiz. 2. Continue with current management initiated by psychiatric care by Dr. Gonzalez. M Larry HERRERA MD DR: MATTY/jamir JOB#: [id number] / [id number]
--- NOTE | 2017-03-01 00:50 | PN ---
DATE: 02/27/2017 SUBJECTIVE: The patient has not had any recurrence of seizure. She continues to be confused and disoriented. OBJECTIVE: GENERAL: Well-developed and well-nourished white female, not in acute distress. VITAL SIGNS: Blood pressure 164/74, respiratory rate 20, pulse rate is 69, temperature 97.8, oxygen saturation 98% on room air. HEENT: Normocephalic, atraumatic, otherwise unremarkable. NECK: Supple. Negative for carotid bruit, lymphadenopathy or thyromegaly. LUNGS: Clear to A and P. CARDIOVASCULAR: Regular rate and rhythm, normal S1, S2. There is no S3, S4 or murmur. ABDOMEN: Soft. Bowel sounds positive. EXTREMITIES: Negative for cyanosis, clubbing. NEUROLOGICAL EXAM: Mental Status: The patient is alert, but disoriented to time, place. Speech is fluent. There is no language dysfunction. Memory, judgment, abstraction, thinking are impaired. The patient denies hallucination or delusion. Cranial nerves are intact. No focal motor or sensory deficit. Deep tendon reflexes are symmetric and active without pathology responses. Gait and coordination are normal. EEG obtained with the patient in the drowsy state characterized by slowing of the posterior dominant rhythm at 3-4 cycles per second with an amplitude of 25/35 microvolts. It was bilaterally symmetric without attenuation with eye opening. The background shows diffuse slowing of theta activities at frequency of 4-5 cycles per second throughout the recording. Photic stimulation produced no driving responses. The patient achieved stage 2 and early stage 3 sleep characterized by further slowing of the posterior dominant rhythm and attenuation of the amplitudes, vertex sharp waves, K complexes and symmetric sleep spindles were also seen throughout the drowsy records. The background is contaminated with excessive movement and muscle artifacts. IMPRESSION: This is a moderately abnormal, prolonged, drowsy EEG because of slowing of the posterior dominant rhythm and diffuse slowing of the background activities. These findings are suggestive of degenerative encephalopathy - dementia. No epileptiform activities were seen. The lack of epileptiform discharge does not always rule out seizure; therefore, clinical correlation is advised. IMPRESSION: 1. Questionable seizure-like activities with negative EEG for active seizure. 2. Urinary tract infections. 3. Dementia. 4. Behavioral disturbances and anxiety disorders. RECOMMENDATIONS: Continue with current management initiated by Dr. Ruiz. The patient needs psychiatric evaluation and possible inpatient psychiatric care. M Larry HERRERA MD DR: Nathan JOB#: [id number] / [id number]
== END 2017-02-28 15:32 | disposition home health service (06) | DRG 871 ==
LOC: ER 13:06 → 1 SOUTH 16:23
PROVIDERS: ADMIT Family Medicine; ATTEND Family Medicine
DX: A41.9 Sepsis, unspecified organism (principal); E43 Unspecified severe protein-calorie malnutrition; N17.0 Acute kidney failure with tubular necrosis; E87.0 Hyperosmolality and hypernatremia; G30.9 Alzheimer's disease, unspecified; F01.51 Vascular dementia, unspecified severity, with behavioral disturbance; E11.22 Type 2 diabetes mellitus with diabetic chronic kidney disease; E11.65 Type 2 diabetes mellitus with hyperglycemia; N39.0 Urinary tract infection, site not specified; B37.2 Candidiasis of skin and nail; F02.81 Dementia in other diseases classified elsewhere, unspecified severity, with behavioral disturbance; G40.909 Epilepsy, unspecified, not intractable, without status epilepticus; I12.9 Hypertensive chronic kidney disease with stage 1 through stage 4 chronic kidney disease, or unspecified chronic kidney disease; D64.9 Anemia, unspecified; E78.00 Pure hypercholesterolemia, unspecified; E78.5 Hyperlipidemia, unspecified; I45.10 Unspecified right bundle-branch block; E83.42 Hypomagnesemia; E83.51 Hypocalcemia; E87.6 Hypokalemia; F32.9 Major depressive disorder, single episode, unspecified; F91.9 Conduct disorder, unspecified; F41.9 Anxiety disorder, unspecified; F63.9 Impulse disorder, unspecified; I25.10 Atherosclerotic heart disease of native coronary artery without angina pectoris; N18.9 Chronic kidney disease, unspecified; R32 Unspecified urinary incontinence; B96.89 Other specified bacterial agents as the cause of diseases classified elsewhere; B96.1 Klebsiella pneumoniae [K. pneumoniae] as the cause of diseases classified elsewhere; Z53.20 Procedure and treatment not carried out because of patient's decision for unspecified reasons; Z79.4 Long term (current) use of insulin; Z87.440 Personal history of urinary (tract) infections; Z91.14 Patient's other noncompliance with medication regimen; Z68.28 Body mass index [BMI] 28.0-28.9, adult
CPT/HCPCS: 36415; 70450; 71010; 80048; 80053; 80307; 81001; 82274; 82728; 82947; 83540; 83550; 83605; 83735; 83880; 84100; 84484; 85025; 85027; 85610; 85730; 87086; 87186; 93005; 93306; 93971; 95816; J0360; J0696; J1200; J1630; J1650; J1815; J3475; J7040; J7042; 97530; 97535; 99285-25; G0479; J7030

== ENCOUNTER 2017-10-26 19:14 | Inpatient (IN) | payer MEDICARE, BC ==
[~2017-10-26] VITALS: Ht 157.5 cm; Wt 70.4 kg
[~2017-10-26 19:14] MED LIST changes: +CEFU500T46 PO; -METF500T4 PO; +METF500T5 PO
--- NOTE | 2017-10-26 19:54 | EKG ---
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
[2017-10-26 20:18] LABS: BASO % 1 % (0-3); EOS # 0.1 x10^3/uL (0.0-0.7); EOS % 2 % (0-3); HEMATOCRIT 29.9 % (36.0-47.0); HEMOGLOBIN 10.2 g/dL (12.0-15.5); LYMPH # 1.5 x10^3/uL (1.0-4.8); LYMPH % 18 % (24-48); MEAN CORPUSCULAR HEMOGLOBIN 32 pg (25-35); MEAN CORPUSCULAR HGB CONC 34 g/dL (31-37); MEAN CORPUSCULAR VOLUME 92 fL (79-100); MONO # 0.5 x10^3/uL (0.0-1.1); MONO % 7 % (0-9); NEUT # 6.1 x10^3uL (1.8-7.7); NEUT % 73 % (31-73); PLATELET COUNT 195 x10^3/uL (140-400); RED BLOOD COUNT 3.25 x10^6/uL (3.50-5.40); WHITE BLOOD COUNT 8.4 x10^3/uL (4.0-11.0)
[2017-10-26 20:23] LABS: CALCIUM 6.7 mg/dL (8.5-10.1); CREATININE 3.8 mg/dL (0.6-1.0); GFR 11.7; MAGNESIUM 1.4 mg/dL (1.8-2.4); POTASSIUM 4.1 mmol/L (3.5-5.1)
[2017-10-26 20:47] LABS: BILIRUBIN,URINE NEG (NEG); CLARITY,URINE TURBID; COLOR,URINE STRAW; GLUCOSE,URINE NEG (NEG)
[2017-10-26 20:48] LABS: NITRITE,URINE NEG (NEG); UROBILINOGEN,URINE 0.2 mg/dL (0.2 mg/dL)
[2017-10-26 20:55] LABS: BACTERIA,URINE MOD /HPF (0-FEW); WBC,URINE TNTC /HPF (0-4)
--- NOTE | 2017-10-26 21:17 | RAD ---
Exam performed: CT scan of the head without contrast. Date of Service: 10/26/2017. Comparison: None available. Clinical History: Altered mental status. Technique: Helical acquisitions are obtained from the foramen magnum to the vertex without intravenous administration of contrast. Findings: There is prominence of cortical sulci and ventricular system compatible with age related atrophy. There are areas of low-attenuation in both periventricular deep white matter suggesting small vessel ischemic changes. Normal owen-white differentiation is maintained. There is no extra axial fluid collection, intraparenchymal hemorrhage or mass lesion. The visualized portions of the orbits, paranasal sinuses and the mastoid air cells appear clear. The calvarium is intact. Impression: 1. Age-appropriate atrophy without any acute intracranial process. PQRS Compliance Statement: One or more of the following individualized dose reduction techniques were utilized for this examination: 1. Automated exposure control 2. Adjustment of the mA and/or kV according to patient size 3. Use of iterative reconstruction technique Electronically signed by: Carrol Meyer MD (10/26/2017 9:13 PM) [facility]
[2017-10-26] MEDS ORDERED: IV NORMAL SALINE 1,000ML 1,000 ML IV ONE ×2 (21:30)
[2017-10-26] MEDS ORDERED: cefTRIAXone IV Push 1 GM VIAL. IVP ONE (21:45)
[2017-10-26] MEDS ORDERED: ONDANSETRON PF 4 MG/2 ML VIAL. IV PRN (22:15)
[2017-10-26] MEDS ORDERED: IV NORMAL SALINE 1,000ML 1,000 ML IV SCH (22:30)
[2017-10-26 23:05] VITALS: BP 187/94
[2017-10-27] MEDS ORDERED: IV DEXTROSE 5 %-0.45 % NACL 1,000 ML IV ONE
[2017-10-27] MEDS ORDERED: MAGNESIUM SULFATE 2GM 50 ML IV ONE (00:30)
--- NOTE | 2017-10-27 03:30 | PHYS DOC ---
Past History Past Medical History: CAD, Dementia, Diabetes Past Surgical History: Cholecystectomy, Knee Replacement, Other Alcohol Use: None Drug Use: None Adult General Chief Complaint Chief Complaint: MECHANICAL FALL HPI HPI 72-year-old female with a history of Alzheimer's dementia, coronary artery disease, diabetes, now brought in by her sister for evaluation of exacerbation of dementia. Sister has been taking care of the patient at home for 4 years but she states that the patient's dementia has a vault to a point where she can no longer manage her. Patient will not take her medications or eat and drink appropriately. She become more belligerent and behaviorally unmanageable. Patient has not injured herself in any way nor she acting out violently. Sr. was hoping to have her evaluated and treated medically if necessary and from a psychiatric standpoint as well with the eventual goal of usp placement Review of Systems Review of Systems Constitutional: Denies fever or chills [] Eyes: Denies change in visual acuity, redness, or eye pain [] HENT: Denies nasal congestion or sore throat [] Respiratory: Denies cough or shortness of breath [] Cardiovascular: No additional information not addressed in HPI [] GI: Denies abdominal pain, nausea, vomiting, bloody stools or diarrhea [] : Denies dysuria or hematuria [] Musculoskeletal: Denies back pain or joint pain [] Integument: Denies rash or skin lesions [] Neurologic: Denies headache, focal weakness or sensory changes [] Endocrine: Denies polyuria or polydipsia [] All other systems were reviewed and found to be within normal limits, except as documented in this note. Current Medications Current Medications Current Medications Medications (Trade) Dose Ordered Sig/Chela Start Time Stop Time Status Last Admin Dose Admin Carvedilol (Coreg) 25 mg BIDWMEALS 10/27/17 08:00 Ceftriaxone Sodium 1 gm/ Sodium Chloride 50 ml @ 100 mls/hr Q24H 10/27/17 21:00 UNV Ceftriaxone Sodium (Rocephin) 1 gm Q24H 10/27/17 21:00 Dextrose/Sodium Chloride 1,000 ml @ 75 mls/hr 1X ONCE 10/27/17 00:00 10/27/17 13:19 10/27/17 00:33 75 MLS/HR Glipizide (Glucotrol Er) 5 mg DAILY08 10/27/17 08:00 Heparin Sodium (Porcine) (Heparin Sq) 5,000 unit Q12HR 10/27/17 09:00 Lactobacillus Rhamnosus (Culturelle) 1 cap BID 10/27/17 09:00 Magnesium Sulfate 50 ml @ 25 mls/hr 1X ONCE 10/27/17 00:30 10/27/17 02:29 DC 10/27/17 00:53 25 MLS/HR Nystatin (Nystop) 1 fuad BID 10/27/17 09:00 Ondansetron HCl (Zofran) 4 mg PRN Q4HRS PRN 10/26/17 22:15 10/27/17 22:14 Sodium Chloride 1,000 ml @ 125 mls/hr Q8H 10/26/17 22:30 10/27/17 00:00 DC Allergies Allergies Allergies Coded Allergies Type Severity Reaction Last Updated Verified No Known Drug Allergies 05/24/16 No Physical Exam Physical Exam Elderly female somewhat disheveled appearing but in no acute distress, alert and communicative cooperative with exam. Constitutional: Well developed, well nourished, no acute distress, non-toxic appearance. [] HENT: Normocephalic, atraumatic, bilateral external ears normal, oropharynx moist, no oral exudates, nose normal. [] Eyes: PERRLA, EOMI, conjunctiva normal, no discharge. [] Neck: Normal range of motion, no tenderness, supple, no stridor. [] Cardiovascular:Heart rate regular rhythm, no murmur [] Lungs & Thorax: Bilateral breath sounds clear to auscultation [] Abdomen: Bowel sounds normal, soft, no tenderness, no masses, no pulsatile masses. [] Skin: Warm, dry, no erythema, no rash. [] Back: No tenderness, no CVA tenderness. [] Extremities: No tenderness, no cyanosis, no clubbing, ROM intact, no edema. [] Neurologic: Alert and oriented at baseline persist or, normal motor function, normal sensory function, no focal deficits noted. [] Psychologic: Affect flat Current Patient Data Vital Signs Vital Signs Date Time Temp Pulse Resp B/P (MAP) Pulse Ox O2 Delivery O2 Flow Rate FiO2 10/26/17 23:05 87 16 187/94 (125) 99 Room Air 10/26/17 19:25 97.9 Lab Results Laboratory Tests Test 10/26/17 20:01 10/26/17 20:25 White Blood Count 8.4 x10^3/uL (4.0-11.0) Red Blood Count 3.25 x10^6/uL (3.50-5.40) L Hemoglobin 10.2 g/dL (12.0-15.5) L Hematocrit 29.9 % (36.0-47.0) L Mean Corpuscular Volume 92 fL (79-100) Mean Corpuscular Hemoglobin 32 pg (25-35) Mean Corpuscular Hemoglobin Concent 34 g/dL (31-37) Red Cell Distribution Width 15.0 % (11.5-14.5) H Platelet Count 195 x10^3/uL (140-400) Neutrophils (%) (Auto) 73 % (31-73) Lymphocytes (%) (Auto) 18 % (24-48) L Monocytes (%) (Auto) 7 % (0-9) Eosinophils (%) (Auto) 2 % (0-3) Basophils (%) (Auto) 1 % (0-3) Neutrophils # (Auto) 6.1 x10^3uL (1.8-7.7) Lymphocytes # (Auto) 1.5 x10^3/uL (1.0-4.8) Monocytes # (Auto) 0.5 x10^3/uL (0.0-1.1) Eosinophils # (Auto) 0.1 x10^3/uL (0.0-0.7) Basophils # (Auto) 0.0 x10^3/uL (0.0-0.2) Sodium Level 149 mmol/L (136-145) H Potassium Level 4.1 mmol/L (3.5-5.1) Chloride Level 114 mmol/L (98-107) H Carbon Dioxide Level 18 mmol/L (21-32) L Anion Gap 17 (6-14) H Blood Urea Nitrogen 74 mg/dL (7-20) H Creatinine 3.8 mg/dL (0.6-1.0) H Estimated GFR (Cockcroft-Gault) 11.7 Glucose Level 129 mg/dL (70-99) H Calcium Level 6.7 mg/dL (8.5-10.1) L Magnesium Level 1.4 mg/dL (1.8-2.4) L Troponin I Quantitative < 0.017 ng/mL (0-0.055) Urine Collection Type U cath Urine Color Straw Urine Clarity Turbid Urine pH 6.5 Urine Specific [place] 1.025 Urine Protein >100 mg/dl (NEG-TRACE) Urine Glucose (UA) Neg mg/dL (NEG) Urine Ketones (Stick) Neg mg/dL (NEG) Urine Blood Mod (NEG) Urine Nitrite Neg (NEG) Urine Bilirubin Neg (NEG) Urine Urobilinogen Dipstick 0.2 mg/dL (0.2 mg/dL) Urine Leukocyte Esterase Large (NEG) Urine RBC 3-5 /HPF (0-2) Urine WBC Tntc /HPF (0-4) Urine Squamous Epithelial Cells None /LPF Urine Bacteria Mod /HPF (0-FEW) EKG EKG EKG with normal sinus rhythm no tachycardia no STEMI interpreted by me[] Radiology/Procedures Radiology/Procedures Chest x-ray with chronic changes no acute disease interpreted by me[] Course & Med Decision Making Course & Med Decision Making Pertinent Labs and Imaging studies reviewed. (See chart for details) Patient signs and symptoms consistent with exacerbation of dementia. Full workup for medical clearance shows hypernatremia with sodium 149 and CO2 18 consistent with mild metabolic acidosis. Patient's creatinine was 3.8 however she does have chronic renal insufficiency and this is not substantially changed from multiple prior values. Urinalysis is consistent with UTI and this will be treated and culture pending case discussed with Dr. Jarvis hospitalist on- call is aware the history and findings accepts the patient for inpatient admission to his service for full workup treatment as needed and transition for psychiatric evaluation and care anticipating permanent placement if possible. Dragon Disclaimer Dragon Disclaimer This electronic medical record was generated, in whole or in part, using a voice recognition dictation system. Departure Departure: Impression: Primary Impression: Hypernatremia Additional Impressions: Urinary tract infection Metabolic acidosis Disposition: ADMITTED INPATIENT Admitting Physician: Star Jarvis Condition: STABLE Referrals: NON,STAFF (PCP) Problem Qualifiers ANASTASIYA YATES MD October 27, 2017 03:30
[2017-10-27 06:10] VITALS: BP 140/75
[2017-10-27 06:42] LABS: BASO % 1 % (0-3); EOS # 0.2 x10^3/uL (0.0-0.7); EOS % 2 % (0-3); HEMATOCRIT 26.2 % (36.0-47.0); LYMPH # 1.3 x10^3/uL (1.0-4.8); LYMPH % 18 % (24-48); MEAN CORPUSCULAR HEMOGLOBIN 32 pg (25-35); MEAN CORPUSCULAR HGB CONC 34 g/dL (31-37); MEAN CORPUSCULAR VOLUME 93 fL (79-100); MONO # 0.5 x10^3/uL (0.0-1.1); MONO % 7 % (0-9); NEUT # 5.4 x10^3uL (1.8-7.7); NEUT % 73 % (31-73); PLATELET COUNT 179 x10^3/uL (140-400); RED BLOOD COUNT 2.83 x10^6/uL (3.50-5.40); RED CELL DISTRIBUTION WIDTH 14.9 % (11.5-14.5); WHITE BLOOD COUNT 7.4 x10^3/uL (4.0-11.0)
[2017-10-27 06:48] LABS: ALBUMIN 2.6 g/dL (3.4-5.0); ALBUMIN/GLOBULIN RATIO 0.8 (1.0-1.7); CALCIUM 6.4 mg/dL (8.5-10.1); CREATININE 3.5 mg/dL (0.6-1.0); GFR 12.8; TOTAL BILIRUBIN 0.2 mg/dL (0.2-1.0); TOTAL PROTEIN 5.9 g/dL (6.4-8.2)
[2017-10-27] MEDS: LACTOBACILLUS RHAMNOSUS GG 1 CAPSULE. PO SCH ×2 (07:54→22:01)
[2017-10-27] MEDS: CARVEDILOL 12.5 MG TABLET PO SCH ×2 (07:54→17:01)
[2017-10-27] MEDS: NYSTATIN TOPICAL POWDER 15GM BOTTLE. TP SCH ×2 (08:00→22:01)
[2017-10-27] MEDS: HEPARIN PF for SUB-Q USE 5,000 UNIT/0.5 ML VIAL. SQ SCH ×2 (08:00→21:58)
--- NOTE | 2017-10-27 12:34 | PDOC1 ---
History of Present Illness Reason for Visit: Fall, weakness History of Present Illness Pt lives w/ her sister. Apparently, pt has dementia and her sister has been finding it more difficult to care for her. She has been falling more frequently lately. Pt is a poor historian, and information is primarily obtained from staff and the chart. Pt has been stable since admission, though "a little sleepy." When I ask her if her legs hurt, she says "that's where they are, don't you know." Her answers to questions are, in general, nonsensical. 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 Renal/: Chronic renal failure (Baseline creat 2.8) Past Surgical History: No pertinent history Family History: Other (Pt unable to answer) Past Social History Smoke: No Alcohol: none Drugs: None Lives: with Family Review of Systems Review Of Systems ROS unobtainable due to pt's dementia Medications Current Medications Ceftriaxone Sodium 1 gm/ Sodium Chloride 50 ml @ 100 mls/hr 1X ONCE IV ; Start 10/26/17 at 21:30; Stop 10/26/17 at 21:35; Status DC Sodium Chloride 1,000 ml @ 1,000 mls/hr 1X ONCE IV Last administered on at 22:13; Start 10/26/17 at 21:30; Stop 10/26/17 at 22:29; Status DC Sodium Chloride 1,000 ml @ 1,000 mls/hr 1X ONCE IV ; Start 10/26/17 at 21:30; Stop 10/26/17 at 21:35; Status DC Ceftriaxone Sodium (Rocephin) 1 gm 1X ONCE IVP Last administered on 10/26/17at 22:12; Start 10/26/17 at 21:45; Stop 10/26/17 at 21:46; Status DC Ondansetron HCl (Zofran) 4 mg PRN Q4HRS PRN IV NAUSEA/VOMITING; Start 10/26/17 at 22:15; Stop 10/27/17 at 22:14 Sodium Chloride 1,000 ml @ 125 mls/hr Q8H IV ; Start 10/26/17 at 22:30; Stop at 00:00; Status DC Carvedilol (Coreg) 25 mg BIDWMEALS PO Last administered on 10/27/17at 07:54; Start 10/27/17 at 08:00 Glipizide (Glucotrol Er) 5 mg DAILY08 PO Last administered on 10/27/17at 07:54; Start 10/27/17 at 08:00 Ceftriaxone Sodium 1 gm/ Sodium Chloride 50 ml @ 100 mls/hr Q24H IV ; Start 06/04 at 21:00; Status UNV Heparin Sodium (Porcine) (Heparin Sq) 5,000 unit Q12HR SQ Last administered on 10/27/17at 08:00; Start 10/27/17 at 09:00 Dextrose/Sodium Chloride 1,000 ml @ 75 mls/hr 1X ONCE IV Last administered on 10/27/17at 00:33; Start 10/27/17 at 00:00; Stop 10/27/17 at 13:19 Magnesium Sulfate 50 ml @ 25 mls/hr 1X ONCE IV Last administered on 10/27/17at 00:53; Start 10/27/17 at 00:30; Stop 10/27/17 at 02:29; Status DC Ceftriaxone Sodium (Rocephin) 1 gm Q24H IVP ; Start 10/27/17 at 21:00 Lactobacillus Rhamnosus (Culturelle) 1 cap BID PO Last administered on at 07:54; Start 10/27/17 at 09:00 Nystatin (Nystop) 1 fuad BID TP Last administered on 10/27/17at 08:00; Start 06/04 at 09:00 Active Scripts Active Cefuroxime (Cefuroxime Axetil) 500 Mg Tablet 500 Mg PO DAILY Reported Glipizide Er (Glipizide) 5 Mg Tab.er.24 1 Tab PO DAILY LAST DOSE GIVEN: NOT GIVEN THIS ADMISSION NEXT DOSE DUE: DATE: TOMORROW TIME: AM Carvedilol 25 Mg Tablet 1 Tab PO BID LAST DOSE GIVEN: DATE: TODAY TIME: AM NEXT DOSE DUE: DATE: TODAY TIME: PM Exam Vital Signs Vital Signs Date Time Temp Pulse Resp B/P (MAP) Pulse Ox O2 Delivery O2 Flow Rate FiO2 10/27/17 08:00 Room Air 10/27/17 07:54 76 140/75 10/27/17 06:10 98.2 14 98 General Appearance: Alert, Cooperative, No acute distress, Other (Oriented x person only) HEENT: Atraumatic, PERRLA, EOMI, Mucous membr. moist/pink, Other (Neck supple, no JVD, no LAD) Respiratory: Clear to auscultation, Normal air movement Heart: Regular rate, Normal S1, Normal S2, No murmurs Abdominal: Normal bowel sounds, Soft, No tenderness, No hepatospenomegaly, No masses Extremities: No cyanosis, Normal pulses, Other (1+ BLE edema; pink thickened skin distal third of BLE without ulceration or drainage) Skin: No breakdown Neuro: Normal tone, Other (No focal abnormalities) Psych/Mental Status: Mood NL Assessment/Plan Assessment/Plan 1. Acute on chronic renal failure: BUN and creat are up. Pt slightly acidotic. Continue IVF at 75 mL/hr. SUspect due to poor intake, pt does not seem to remember to eat or drink unless frequently prompted. Pt does continue to void. 2. Hypernatremia: See above, suspect due to volume contraction and dehydration. Repeat BMP in AM. 3. Dementia: Pt may be a candidate for SNF at discharge. She is not having any behavioral disturbances at this time. 4. Anemia, NOS: Hemoccult stools. Check iron levels. Monitor Hgb daily. Drop from 10-9 today is likely due to volume expansion. 5. DM: Continue home Glipizide, ac/hs accucheck 6. UTI: COntinue Rocephin. Await culture. 7. HTN: BP labile. Continue home meds for now. 8. DVT proph: Heparin. 9. Lymphedema w/ mild BLE cellulitis: Continue Rocephin, monitor for skin breakdown. No SCD's. 10. Disp: Expect at least 2-3 day stay for treatment of multiple complex conditions. COURSE Allergies Coded Allergies Type Severity Reaction Last Updated Verified No Known Drug Allergies 05/24/16 No Laboratory Tests Test 10/26/17 20:01 10/26/17 20:25 10/27/17 05:57 10/27/17 07:37 White Blood Count 8.4 x10^3/uL (4.0-11.0) 7.4 x10^3/uL (4.0-11.0) Red Blood Count 3.25 x10^6/uL (3.50-5.40) 2.83 x10^6/uL (3.50-5.40) Hemoglobin 10.2 g/dL (12.0-15.5) 9.0 g/dL (12.0-15.5) Hematocrit 29.9 % (36.0-47.0) 26.2 % (36.0-47.0) Mean Corpuscular Volume 92 fL (79-100) 93 fL (79-100) Mean Corpuscular Hemoglobin 32 pg (25-35) 32 pg (25-35) Mean Corpuscular Hemoglobin Concent 34 g/dL (31-37) 34 g/dL (31-37) Red Cell Distribution Width 15.0 % (11.5-14.5) 14.9 % (11.5-14.5) Platelet Count 195 x10^3/uL (140-400) 179 x10^3/uL (140-400) Neutrophils (%) (Auto) 73 % (31-73) 73 % (31-73) Lymphocytes (%) (Auto) 18 % (24-48) 18 % (24-48) Monocytes (%) (Auto) 7 % (0-9) 7 % (0-9) Eosinophils (%) (Auto) 2 % (0-3) 2 % (0-3) Basophils (%) (Auto) 1 % (0-3) 1 % (0-3) Neutrophils # (Auto) 6.1 x10^3uL (1.8-7.7) 5.4 x10^3uL (1.8-7.7) Lymphocytes # (Auto) 1.5 x10^3/uL (1.0-4.8) 1.3 x10^3/uL (1.0-4.8) Monocytes # (Auto) 0.5 x10^3/uL (0.0-1.1) 0.5 x10^3/uL (0.0-1.1) Eosinophils # (Auto) 0.1 x10^3/uL (0.0-0.7) 0.2 x10^3/uL (0.0-0.7) Basophils # (Auto) 0.0 x10^3/uL (0.0-0.2) 0.0 x10^3/uL (0.0-0.2) Sodium Level 149 mmol/L (136-145) 150 mmol/L (136-145) Potassium Level 4.1 mmol/L (3.5-5.1) 4.0 mmol/L (3.5-5.1) Chloride Level 114 mmol/L (98-107) 117 mmol/L (98-107) Carbon Dioxide Level 18 mmol/L (21-32) 18 mmol/L (21-32) Anion Gap 17 (6-14) 15 (6-14) Blood Urea Nitrogen 74 mg/dL (7-20) 68 mg/dL (7-20) Creatinine 3.8 mg/dL (0.6-1.0) 3.5 mg/dL (0.6-1.0) Estimated GFR (Cockcroft-Gault) 11.7 12.8 Glucose Level 129 mg/dL (70-99) 141 mg/dL (70-99) Calcium Level 6.7 mg/dL (8.5-10.1) 6.4 mg/dL (8.5-10.1) Magnesium Level 1.4 mg/dL (1.8-2.4) 2.0 mg/dL (1.8-2.4) Troponin I Quantitative < 0.017 ng/mL (0-0.055) Urine Collection Type U cath Urine Color Straw Urine Clarity Turbid Urine pH 6.5 Urine Specific [place] 1.025 Urine Protein >100 mg/dl (NEG-TRACE) Urine Glucose (UA) Neg mg/dL (NEG) Urine Ketones (Stick) Neg mg/dL (NEG) Urine Blood Mod (NEG) Urine Nitrite Neg (NEG) Urine Bilirubin Neg (NEG) Urine Urobilinogen Dipstick 0.2 mg/dL (0.2 mg/dL) Urine Leukocyte Esterase Large (NEG) Urine RBC 3-5 /HPF (0-2) Urine WBC Tntc /HPF (0-4) Urine Squamous Epithelial Cells None /LPF Urine Bacteria Mod /HPF (0-FEW) BUN/Creatinine Ratio 19 (6-20) Total Bilirubin 0.2 mg/dL (0.2-1.0) Aspartate Amino Transf (AST/SGOT) 17 U/L (15-37) Alanine Aminotransferase (ALT/SGPT) 22 U/L (14-59) Alkaline Phosphatase 116 U/L (46-116) Total Protein 5.9 g/dL (6.4-8.2) Albumin 2.6 g/dL (3.4-5.0) Albumin/Globulin Ratio 0.8 (1.0-1.7) Prealbumin 21.5 mg/dL (16.0-42.0) Glucose (Fingerstick) 144 mg/dL (70-99) Test 10/27/17 12:01 Glucose (Fingerstick) 150 mg/dL (70-99) Current Medications Medications (Trade) Dose Ordered Sig/Chela Route PRN Reason Start Time Stop Time Status Last Admin Dose Admin Ceftriaxone Sodium 1 gm/ Sodium Chloride 50 ml @ 100 mls/hr 1X ONCE IV 10/26/17 21:30 10/26/17 21:35 DC Sodium Chloride 1,000 ml @ 1,000 mls/hr 1X ONCE IV 10/26/17 21:30 10/26/17 22:29 DC 10/26/17 22:13 Sodium Chloride 1,000 ml @ 1,000 mls/hr 1X ONCE IV 10/26/17 21:30 10/26/17 21:35 DC Ceftriaxone Sodium (Rocephin) 1 gm 1X ONCE IVP 10/26/17 21:45 10/26/17 21:46 DC 10/26/17 22:12 Ondansetron HCl (Zofran) 4 mg PRN Q4HRS PRN IV NAUSEA/VOMITING 10/26/17 22:15 10/27/17 22:14 Sodium Chloride 1,000 ml @ 125 mls/hr Q8H IV 10/26/17 22:30 10/27/17 00:00 DC Carvedilol (Coreg) 25 mg BIDWMEALS PO 10/27/17 08:00 10/27/17 07:54 Glipizide (Glucotrol Er) 5 mg DAILY08 PO 10/27/17 08:00 10/27/17 07:54 Ceftriaxone Sodium 1 gm/ Sodium Chloride 50 ml @ 100 mls/hr Q24H IV 10/27/17 21:00 UNV Heparin Sodium (Porcine) (Heparin Sq) 5,000 unit Q12HR SQ 10/27/17 09:00 10/27/17 08:00 Dextrose/Sodium Chloride 1,000 ml @ 75 mls/hr 1X ONCE IV 5/12/18 00:00 10/27/17 13:19 10/27/17 00:33 Magnesium Sulfate 50 ml @ 25 mls/hr 1X ONCE IV 10/27/17 00:30 10/27/17 02:29 DC 10/27/17 00:53 Ceftriaxone Sodium (Rocephin) 1 gm Q24H IVP 10/27/17 21:00 Lactobacillus Rhamnosus (Culturelle) 1 cap BID PO 10/27/17 09:00 10/27/17 07:54 Nystatin (Nystop) 1 fuad BID TP 10/27/17 09:00 10/27/17 08:00 I & O 10/27/17 00:00 Intake Total 1000 ml Balance 1000 ml Vital Signs Date Time Temp Pulse Resp B/P (MAP) Pulse Ox O2 Delivery O2 Flow Rate FiO2 10/27/17 08:00 Room Air 10/27/17 07:54 76 140/75 10/27/17 06:10 98.2 14 98 Exam performed: CT scan of the head without contrast. Date of Service: 10/26/2017. Comparison: None available. Clinical History: Altered mental status. Technique: Helical acquisitions are obtained from the foramen magnum to the vertex without intravenous administration of contrast. Findings: There is prominence of cortical sulci and ventricular system compatible with age related atrophy. There are areas of low-attenuation in both periventricular deep white matter suggesting small vessel ischemic changes. Normal owen-white differentiation is maintained. There is no extra axial fluid collection, intraparenchymal hemorrhage or mass lesion. The visualized portions of the orbits, paranasal sinuses and the mastoid air cells appear clear. The calvarium is intact. Impression: 1. Age-appropriate atrophy without any acute intracranial process. VIVEK CARRANZA MD October 27, 2017 12:34
[2017-10-27 15:02] LABS: FECAL OB PT NEGATIVE (NEG)
[2017-10-27 15:41] VITALS: BP 138/77
[2017-10-27] MEDS: IV DEXTROSE 5 %-0.45 % NACL 1,000 ML IV SCH (16:06)
[2017-10-27 19:48] VITALS: BP 153/82
[2017-10-27 19:54] VITALS: BP 153/82
[2017-10-27 20:11] LABS: CREATININE PTH 3.33 mg/dL (0.57-1.00); PTH INTACT 296 pg/mL (15-65)
[2017-10-27 20:20] LABS: CALCIUM PTH 6.6 mg/dL (8.7-10.3)
[2017-10-27] MEDS ORDERED: cefTRIAXone IV Push 1 GM VIAL. IVP SCH (21:00)
[2017-10-28] MEDS: IV DEXTROSE 5 %-0.45 % NACL 1,000 ML IV SCH ×2 (04:50→17:12)
[2017-10-28 05:50] VITALS: BP 151/84
[2017-10-28 06:54] LABS: BASO % 1 % (0-3); EOS # 0.2 x10^3/uL (0.0-0.7); EOS % 3 % (0-3); HEMATOCRIT 24.7 % (36.0-47.0); HEMOGLOBIN 8.4 g/dL (12.0-15.5); LYMPH # 1.7 x10^3/uL (1.0-4.8); LYMPH % 29 % (24-48); MEAN CORPUSCULAR HEMOGLOBIN 32 pg (25-35); MEAN CORPUSCULAR HGB CONC 34 g/dL (31-37); MEAN CORPUSCULAR VOLUME 93 fL (79-100); MONO # 0.4 x10^3/uL (0.0-1.1); MONO % 7 % (0-9); NEUT # 3.5 x10^3uL (1.8-7.7); NEUT % 61 % (31-73); PLATELET COUNT 147 x10^3/uL (140-400); RED BLOOD COUNT 2.66 x10^6/uL (3.50-5.40); WHITE BLOOD COUNT 5.8 x10^3/uL (4.0-11.0)
[2017-10-28 07:03] LABS: CALCIUM 6.2 mg/dL (8.5-10.1); CREATININE 3.5 mg/dL (0.6-1.0); GFR 12.8; POTASSIUM 4.1 mmol/L (3.5-5.1)
[2017-10-28] MEDS: SEVELAMER CARBONATE 800 MG TABLET. PO SCH ×3 (08:00→17:08)
[2017-10-28] MEDS: LACTOBACILLUS RHAMNOSUS GG 1 CAPSULE. PO SCH ×2 (08:04→20:38)
[2017-10-28] MEDS: CARVEDILOL 12.5 MG TABLET PO SCH ×2 (08:04→17:08)
[2017-10-28] MEDS: NYSTATIN TOPICAL POWDER 15GM BOTTLE. TP SCH ×2 (08:05→20:45)
[2017-10-28] MEDS: HEPARIN PF for SUB-Q USE 5,000 UNIT/0.5 ML VIAL. SQ SCH ×2 (08:13→20:40)
[2017-10-28 11:56] VITALS: BP 142/70
[2017-10-28 14:55] VITALS: BP 155/70
--- NOTE | 2017-10-28 15:17 | PDOC ---
PROGRESS NOTES Assessment 1. Acute on chronic renal failure: BUN and creat are stable. Pt slightly acidotic. Continue IVF at 75 mL/hr. Suspect due to poor intake, pt does not seem to remember to eat or drink unless frequently prompted. Pt does continue to void well per nursing. 2. Hypernatremia: Improved 3. Dementia: Pt may be a candidate for SNF at discharge. She is not having any behavioral disturbances at this time. 4. Anemia, NOS: Likely due to CRF. Monitor for signs bleeding. 5. DM: Continue home Glipizide, ac/hs accucheck 6. UTI: Resistant to Rocephin. Start Cipro 500 mg q 24 hrs x 5 days. 7. HTN: BP labile. Continue home meds for now. 8. DVT proph: Heparin. 9. Lymphedema w/ mild BLE cellulitis: Changing to Cipro. Legs look better today. 10. Disp: Expect at least 2-3 day stay for treatment of multiple complex conditions. 11. Hyperparathyroidism, hypocalcemia, and hyperphosphatemia due to CKD stage 4 : Started Renagel due to elevated phosphate. Consider calcitriol if Vit D comes back low. Plan of Care: see other orders Subjective Pt seen on rounds and d/w nursing staff. Pt continues to be continent and voiding well. No n/v, no diarrhea. No fever. Denies pain. Eating well. Pt continues to be confused. Objective Vital Signs Date Time Temp Pulse Resp B/P (MAP) Pulse Ox O2 Delivery O2 Flow Rate FiO2 10/28/17 14:55 66 20 155/70 (98) 99 10/28/17 08:00 Room Air 10/28/17 05:50 96.9 Intake and Output 10/28/17 07:00 Intake Total 2417 ml Output Total 750 ml Balance 1667 ml Intake Oral 720 ml IV Total 1697 ml Output Urine Total 550 ml Urine/Stool Mix 200 ml # Voids 2 Abdomen: Normal bowel sounds, Soft, No tenderness, No hepatospenomegaly, No masses Heart: Regular rate, Normal S1, Normal S2 Extremities: Other (Non-pitting edema, improved pink skin, no ulceration) General: Alert, Cooperative, No acute distress HEENT: PERRLA, EOMI, Mucous membr. moist/pink Lungs: Clear to auscultation, Normal air movement Neck: No JVD Neuro: Other (No focal abnormalities) Psych/Mental Status: Other (Pleasantly confused) Skin: No breakdown Review of Relevant I have reviewed the following items tanner (where applicable) has been applied. Labs Laboratory Tests Test 10/26/17 20:01 10/26/17 20:25 10/27/17 05:57 10/27/17 07:37 White Blood Count 8.4 x10^3/uL (4.0-11.0) 7.4 x10^3/uL (4.0-11.0) Red Blood Count 3.25 x10^6/uL (3.50-5.40) 2.83 x10^6/uL (3.50-5.40) Hemoglobin 10.2 g/dL (12.0-15.5) 9.0 g/dL (12.0-15.5) Hematocrit 29.9 % (36.0-47.0) 26.2 % (36.0-47.0) Mean Corpuscular Volume 92 fL (79-100) 93 fL (79-100) Mean Corpuscular Hemoglobin 32 pg (25-35) 32 pg (25-35) Mean Corpuscular Hemoglobin Concent 34 g/dL (31-37) 34 g/dL (31-37) Red Cell Distribution Width 15.0 % (11.5-14.5) 14.9 % (11.5-14.5) Platelet Count 195 x10^3/uL (140-400) 179 x10^3/uL (140-400) Neutrophils (%) (Auto) 73 % (31-73) 73 % (31-73) Lymphocytes (%) (Auto) 18 % (24-48) 18 % (24-48) Monocytes (%) (Auto) 7 % (0-9) 7 % (0-9) Eosinophils (%) (Auto) 2 % (0-3) 2 % (0-3) Basophils (%) (Auto) 1 % (0-3) 1 % (0-3) Neutrophils # (Auto) 6.1 x10^3uL (1.8-7.7) 5.4 x10^3uL (1.8-7.7) Lymphocytes # (Auto) 1.5 x10^3/uL (1.0-4.8) 1.3 x10^3/uL (1.0-4.8) Monocytes # (Auto) 0.5 x10^3/uL (0.0-1.1) 0.5 x10^3/uL (0.0-1.1) Eosinophils # (Auto) 0.1 x10^3/uL (0.0-0.7) 0.2 x10^3/uL (0.0-0.7) Basophils # (Auto) 0.0 x10^3/uL (0.0-0.2) 0.0 x10^3/uL (0.0-0.2) Sodium Level 149 mmol/L (136-145) 150 mmol/L (136-145) Potassium Level 4.1 mmol/L (3.5-5.1) 4.0 mmol/L (3.5-5.1) Chloride Level 114 mmol/L (98-107) 117 mmol/L (98-107) Carbon Dioxide Level 18 mmol/L (21-32) 18 mmol/L (21-32) Anion Gap 17 (6-14) 15 (6-14) Blood Urea Nitrogen 74 mg/dL (7-20) 68 mg/dL (7-20) Creatinine 3.8 mg/dL (0.6-1.0) 3.5 mg/dL (0.6-1.0) Estimated GFR (Cockcroft-Gault) 11.7 12.8 Glucose Level 129 mg/dL (70-99) 141 mg/dL (70-99) Calcium Level 6.7 mg/dL (8.5-10.1) 6.4 mg/dL (8.5-10.1) Magnesium Level 1.4 mg/dL (1.8-2.4) 2.0 mg/dL (1.8-2.4) Troponin I Quantitative < 0.017 ng/mL (0-0.055) Urine Collection Type U cath Urine Color Straw Urine Clarity Turbid Urine pH 6.5 Urine Specific [place] 1.025 Urine Protein >100 mg/dl (NEG-TRACE) Urine Glucose (UA) Neg mg/dL (NEG) Urine Ketones (Stick) Neg mg/dL (NEG) Urine Blood Mod (NEG) Urine Nitrite Neg (NEG) Urine Bilirubin Neg (NEG) Urine Urobilinogen Dipstick 0.2 mg/dL (0.2 mg/dL) Urine Leukocyte Esterase Large (NEG) Urine RBC 3-5 /HPF (0-2) Urine WBC Tntc /HPF (0-4) Urine Squamous Epithelial Cells None /LPF Urine Bacteria Mod /HPF (0-FEW) BUN/Creatinine Ratio 19 (6-20) Total Bilirubin 0.2 mg/dL (0.2-1.0) Aspartate Amino Transf (AST/SGOT) 17 U/L (15-37) Alanine Aminotransferase (ALT/SGPT) 22 U/L (14-59) Alkaline Phosphatase 116 U/L (46-116) Total Protein 5.9 g/dL (6.4-8.2) Albumin 2.6 g/dL (3.4-5.0) Albumin/Globulin Ratio 0.8 (1.0-1.7) Prealbumin 21.5 mg/dL (16.0-42.0) Glucose (Fingerstick) 144 mg/dL (70-99) Test 10/27/17 12:01 10/27/17 12:25 10/27/17 14:46 10/27/17 16:39 Glucose (Fingerstick) 150 mg/dL (70-99) 141 mg/dL (70-99) Ionized Calcium 0.99 mmol/L (1.13-1.32) Iron Level 54 ug/dL (50-170) Total Iron Binding Capacity 178 ug/dL (250-450) Iron Saturation 30 % (15-34) EGFR Other 13 (>59) EGFR 15 (>59) Parathyroid Hormone (Intact) 296 pg/mL (15-65) Calcium (PTH Intact) 6.6 mg/dL (8.7-10.3) Creatinine (PTH Intact) 3.33 mg/dL (0.57-1.00) Phosphorus (PTH Intact) 5.3 mg/dL (2.5-4.5) Stool Occult Blood Negative (NEG) Test 10/28/17 06:19 10/28/17 07:46 10/28/17 11:27 White Blood Count 5.8 x10^3/uL (4.0-11.0) Red Blood Count 2.66 x10^6/uL (3.50-5.40) Hemoglobin 8.4 g/dL (12.0-15.5) Hematocrit 24.7 % (36.0-47.0) Mean Corpuscular Volume 93 fL (79-100) Mean Corpuscular Hemoglobin 32 pg (25-35) Mean Corpuscular Hemoglobin Concent 34 g/dL (31-37) Red Cell Distribution Width 15.0 % (11.5-14.5) Platelet Count 147 x10^3/uL (140-400) Neutrophils (%) (Auto) 61 % (31-73) Lymphocytes (%) (Auto) 29 % (24-48) Monocytes (%) (Auto) 7 % (0-9) Eosinophils (%) (Auto) 3 % (0-3) Basophils (%) (Auto) 1 % (0-3) Neutrophils # (Auto) 3.5 x10^3uL (1.8-7.7) Lymphocytes # (Auto) 1.7 x10^3/uL (1.0-4.8) Monocytes # (Auto) 0.4 x10^3/uL (0.0-1.1) Eosinophils # (Auto) 0.2 x10^3/uL (0.0-0.7) Basophils # (Auto) 0.0 x10^3/uL (0.0-0.2) Sodium Level 145 mmol/L (136-145) Potassium Level 4.1 mmol/L (3.5-5.1) Chloride Level 113 mmol/L (98-107) Carbon Dioxide Level 18 mmol/L (21-32) Anion Gap 14 (6-14) Blood Urea Nitrogen 61 mg/dL (7-20) Creatinine 3.5 mg/dL (0.6-1.0) Estimated GFR (Cockcroft-Gault) 12.8 Glucose Level 127 mg/dL (70-99) Calcium Level 6.2 mg/dL (8.5-10.1) Glucose (Fingerstick) 112 mg/dL (70-99) 164 mg/dL (70-99) Microbiology 10/26/17 Urine Culture - Final, Complete 10/26/17 Urine Culture Result 1 (ELIZ) - Final, Complete 10/26/17 Antimicrobic Susceptibility - Final, Complete Medications Current Medications Ceftriaxone Sodium 1 gm/ Sodium Chloride 50 ml @ 100 mls/hr 1X ONCE IV ; Start 10/26/17 at 21:30; Stop 10/26/17 at 21:35; Status DC Sodium Chloride 1,000 ml @ 1,000 mls/hr 1X ONCE IV Last administered on at 22:13; Start 10/26/17 at 21:30; Stop 10/26/17 at 22:29; Status DC Sodium Chloride 1,000 ml @ 1,000 mls/hr 1X ONCE IV ; Start 10/26/17 at 21:30; Stop 10/26/17 at 21:35; Status DC Ceftriaxone Sodium (Rocephin) 1 gm 1X ONCE IVP Last administered on 10/26/17at 22:12; Start 10/26/17 at 21:45; Stop 10/26/17 at 21:46; Status DC Ondansetron HCl (Zofran) 4 mg PRN Q4HRS PRN IV NAUSEA/VOMITING; Start 10/26/17 at 22:15; Stop 10/27/17 at 22:14; Status DC Sodium Chloride 1,000 ml @ 125 mls/hr Q8H IV ; Start 10/26/17 at 22:30; Stop at 00:00; Status DC Carvedilol (Coreg) 25 mg BIDWMEALS PO Last administered on 10/28/17at 08:04; Start 10/27/17 at 08:00 Glipizide (Glucotrol Er) 5 mg DAILY08 PO Last administered on 10/28/17at 08:04; Start 10/27/17 at 08:00 Ceftriaxone Sodium 1 gm/ Sodium Chloride 50 ml @ 100 mls/hr Q24H IV ; Start 06/04 at 21:00; Status UNV Heparin Sodium (Porcine) (Heparin Sq) 5,000 unit Q12HR SQ Last administered on 10/28/17at 08:13; Start 10/27/17 at 09:00 Dextrose/Sodium Chloride 1,000 ml @ 75 mls/hr 1X ONCE IV Last administered on 10/27/17at 00:33; Start 10/27/17 at 00:00; Stop 10/27/17 at 13:19; Status DC Magnesium Sulfate 50 ml @ 25 mls/hr 1X ONCE IV Last administered on 10/27/17at 00:53; Start 10/27/17 at 00:30; Stop 10/27/17 at 02:29; Status DC Ceftriaxone Sodium (Rocephin) 1 gm Q24H IVP Last administered on 10/27/17at 21: 55; Start 10/27/17 at 21:00 Lactobacillus Rhamnosus (Culturelle) 1 cap BID PO Last administered on at 08:04; Start 10/27/17 at 09:00 Nystatin (Nystop) 1 fuad BID TP Last administered on 10/28/17at 08:05; Start 06/04 at 09:00 Dextrose/Sodium Chloride 1,000 ml @ 75 mls/hr [id number] IV Last administered on 10/28/17at 04:50; Start 10/27/17 at 15:30 Sevelamer Carbonate (Renvela) 800 mg TIDWMEALS PO Last administered on at 11:31; Start 10/28/17 at 08:00 Active Scripts Active Cefuroxime (Cefuroxime Axetil) 500 Mg Tablet 500 Mg PO DAILY Reported Glipizide Er (Glipizide) 5 Mg Tab.er.24 1 Tab PO DAILY LAST DOSE GIVEN: NOT GIVEN THIS ADMISSION NEXT DOSE DUE: DATE: TOMORROW TIME: AM Carvedilol 25 Mg Tablet 1 Tab PO BID LAST DOSE GIVEN: DATE: TODAY TIME: AM NEXT DOSE DUE: DATE: TODAY TIME: PM Vitals/I & O Vital Sign - Last 24 Hours 10/27/17 10/27/17 10/27/17 10/27/17 15:41 17:01 19:48 19:54 Temp 98.1 96.9 96.9 Pulse 69 69 70 70 Resp 18 14 14 B/P (MAP) 138/77 (97) 138/77 153/82 (105) 153/82 (105) Pulse Ox 99 98 98 O2 Delivery Room Air Room Air Room Air 10/27/17 10/27/17 10/28/17 10/28/17 19:57 23:12 05:50 08:00 Temp 96.9 Pulse 70 Resp 16 14 B/P (MAP) 151/84 (106) Pulse Ox 100 O2 Delivery Room Air Room Air Room Air 10/28/17 10/28/17 10/28/17 08:04 11:56 14:55 Pulse 70 66 66 Resp 20 20 B/P (MAP) 151/84 142/70 (94) 155/70 (98) Pulse Ox 99 Intake and Output 10/27/17 10/27/17 10/28/17 15:00 23:00 07:00 Intake Total 0 ml 1592 ml 825 ml Output Total 750 ml Balance 0 ml 842 ml 825 ml VIVEK CARRANZA MD October 28, 2017 15:17
[2017-10-28 19:11] VITALS: BP 113/54
[2017-10-28] MEDS: CIPROFLOXACIN HCL 500 MG TABLET PO SCH (20:38)
[2017-10-29 06:03] VITALS: BP 155/84
[2017-10-29 06:28] LABS: BASO % 1 % (0-3); EOS # 0.2 x10^3/uL (0.0-0.7); EOS % 4 % (0-3); HEMATOCRIT 24.8 % (36.0-47.0); HEMOGLOBIN 8.5 g/dL (12.0-15.5); LYMPH # 1.5 x10^3/uL (1.0-4.8); LYMPH % 23 % (24-48); MEAN CORPUSCULAR HEMOGLOBIN 32 pg (25-35); MEAN CORPUSCULAR HGB CONC 34 g/dL (31-37); MEAN CORPUSCULAR VOLUME 93 fL (79-100); MONO # 0.5 x10^3/uL (0.0-1.1); MONO % 7 % (0-9); NEUT # 4.2 x10^3uL (1.8-7.7); NEUT % 66 % (31-73); PLATELET COUNT 151 x10^3/uL (140-400); RED BLOOD COUNT 2.68 x10^6/uL (3.50-5.40); RED CELL DISTRIBUTION WIDTH 14.5 % (11.5-14.5); WHITE BLOOD COUNT 6.4 x10^3/uL (4.0-11.0)
[2017-10-29 06:35] LABS: ALBUMIN 2.3 g/dL (3.4-5.0); ALBUMIN/GLOBULIN RATIO 0.7 (1.0-1.7); GFR 15.3; POTASSIUM 3.8 mmol/L (3.5-5.1); TOTAL BILIRUBIN 0.2 mg/dL (0.2-1.0); TOTAL PROTEIN 5.4 g/dL (6.4-8.2)
[2017-10-29 06:44] LABS: CALCIUM 5.8 mg/dL (8.5-10.1)
[2017-10-29] MEDS: IV DEXTROSE 5 %-0.45 % NACL 1,000 ML IV SCH (07:30)
[2017-10-29] MEDS: SEVELAMER CARBONATE 800 MG TABLET. PO SCH ×3 (09:19→17:17)
[2017-10-29] MEDS: LACTOBACILLUS RHAMNOSUS GG 1 CAPSULE. PO SCH ×2 (09:19→21:35)
[2017-10-29] MEDS: CARVEDILOL 12.5 MG TABLET PO SCH ×2 (09:20→17:17)
[2017-10-29] MEDS: NYSTATIN TOPICAL POWDER 15GM BOTTLE. TP SCH ×2 (09:22→21:36)
[2017-10-29] MEDS: HEPARIN PF for SUB-Q USE 5,000 UNIT/0.5 ML VIAL. SQ SCH ×2 (09:31→21:42)
[2017-10-29 15:27] VITALS: BP 159/85
--- NOTE | 2017-10-29 18:44 | PDOC ---
Exam Note: Pino Note: Please also refer to the separate dictated note~for this date of service dictated separately.~Patient seen individually. Discussed the patient with Nursing staff reviewed the chart.~Reviewed interim history and current functioning. Reviewed vital signs,~Labs/ Radiology~and current medications noted below. Continue current treatment with the changes noted in the dictated addendum note Assessment: Vital Signs: Vital Signs Date Time Temp Pulse Resp B/P (MAP) Pulse Ox O2 Delivery O2 Flow Rate FiO2 10/29/17 17:17 68 159/85 10/29/17 15:27 98.2 20 99 Room Air I&O Intake and Output 10/29/17 07:00 Intake Total 1525 ml Output Total 1300 ml Balance 225 ml Intake Oral 540 ml IV Total 985 ml Output Urine Total 1300 ml # Voids 1 Labs: Laboratory Tests Test 10/28/17 19:51 10/29/17 06:00 10/29/17 07:54 10/29/17 11:49 Glucose (Fingerstick) 78 mg/dL (70-99) 80 mg/dL (70-99) 62 mg/dL (70-99) L White Blood Count 6.4 x10^3/uL (4.0-11.0) Red Blood Count 2.68 x10^6/uL (3.50-5.40) L Hemoglobin 8.5 g/dL (12.0-15.5) L Hematocrit 24.8 % (36.0-47.0) L Mean Corpuscular Volume 93 fL (79-100) Mean Corpuscular Hemoglobin 32 pg (25-35) Mean Corpuscular Hemoglobin Concent 34 g/dL (31-37) Red Cell Distribution Width 14.5 % (11.5-14.5) Platelet Count 151 x10^3/uL (140-400) Neutrophils (%) (Auto) 66 % (31-73) Lymphocytes (%) (Auto) 23 % (24-48) L Monocytes (%) (Auto) 7 % (0-9) Eosinophils (%) (Auto) 4 % (0-3) H Basophils (%) (Auto) 1 % (0-3) Neutrophils # (Auto) 4.2 x10^3uL (1.8-7.7) Lymphocytes # (Auto) 1.5 x10^3/uL (1.0-4.8) Monocytes # (Auto) 0.5 x10^3/uL (0.0-1.1) Eosinophils # (Auto) 0.2 x10^3/uL (0.0-0.7) Basophils # (Auto) 0.0 x10^3/uL (0.0-0.2) Sodium Level 144 mmol/L (136-145) Potassium Level 3.8 mmol/L (3.5-5.1) Chloride Level 114 mmol/L (98-107) H Carbon Dioxide Level 19 mmol/L (21-32) L Anion Gap 11 (6-14) Blood Urea Nitrogen 56 mg/dL (7-20) H Creatinine 3.0 mg/dL (0.6-1.0) H Estimated GFR (Cockcroft-Gault) 15.3 BUN/Creatinine Ratio 19 (6-20) Glucose Level 52 mg/dL (70-99) L Calcium Level 5.8 mg/dL (8.5-10.1) *L Total Bilirubin 0.2 mg/dL (0.2-1.0) Aspartate Amino Transferase (AST) 22 U/L (15-37) Alanine Aminotransferase (ALT) 25 U/L (14-59) Alkaline Phosphatase 106 U/L (46-116) Total Protein 5.4 g/dL (6.4-8.2) L Albumin 2.3 g/dL (3.4-5.0) L Albumin/Globulin Ratio 0.7 (1.0-1.7) L Test 10/29/17 16:40 Glucose (Fingerstick) 55 mg/dL (70-99) L Current Medications: Meds: Current Medications Ceftriaxone Sodium 1 gm/ Sodium Chloride 50 ml @ 100 mls/hr 1X ONCE IV ; Start 10/26/17 at 21:30; Stop 10/26/17 at 21:35; Status DC Sodium Chloride 1,000 ml @ 1,000 mls/hr 1X ONCE IV Last administered on at 22:13; Start 10/26/17 at 21:30; Stop 10/26/17 at 22:29; Status DC Sodium Chloride 1,000 ml @ 1,000 mls/hr 1X ONCE IV ; Start 10/26/17 at 21:30; Stop 10/26/17 at 21:35; Status DC Ceftriaxone Sodium (Rocephin) 1 gm 1X ONCE IVP Last administered on 10/26/17at 22:12; Start 10/26/17 at 21:45; Stop 10/26/17 at 21:46; Status DC Ondansetron HCl (Zofran) 4 mg PRN Q4HRS PRN IV NAUSEA/VOMITING; Start 10/26/17 at 22:15; Stop 10/27/17 at 22:14; Status DC Sodium Chloride 1,000 ml @ 125 mls/hr Q8H IV ; Start 10/26/17 at 22:30; Stop at 00:00; Status DC Carvedilol (Coreg) 25 mg BIDWMEALS PO Last administered on 10/29/17at 17:17; Start 10/27/17 at 08:00 Glipizide (Glucotrol Er) 5 mg DAILY08 PO Last administered on 10/29/17at 09:19; Start 10/27/17 at 08:00 Ceftriaxone Sodium 1 gm/ Sodium Chloride 50 ml @ 100 mls/hr Q24H IV ; Start 06/04 at 21:00; Status UNV Heparin Sodium (Porcine) (Heparin Sq) 5,000 unit Q12HR SQ Last administered on 10/29/17at 09:31; Start 10/27/17 at 09:00 Dextrose/Sodium Chloride 1,000 ml @ 75 mls/hr 1X ONCE IV Last administered on 10/27/17at 00:33; Start 10/27/17 at 00:00; Stop 10/27/17 at 13:19; Status DC Magnesium Sulfate 50 ml @ 25 mls/hr 1X ONCE IV Last administered on 10/27/17at 00:53; Start 10/27/17 at 00:30; Stop 10/27/17 at 02:29; Status DC Ceftriaxone Sodium (Rocephin) 1 gm Q24H IVP Last administered on 10/27/17at 21: 55; Start 10/27/17 at 21:00; Stop 10/28/17 at 15:28; Status DC Lactobacillus Rhamnosus (Culturelle) 1 cap BID PO Last administered on at 09:19; Start 10/27/17 at 09:00 Nystatin (Nystop) 1 fuad BID TP Last administered on 10/29/17at 09:22; Start 06/04 at 09:00 Dextrose/Sodium Chloride 1,000 ml @ 75 mls/hr [id number] IV Last administered on 10/28/17at 17:12; Start 10/27/17 at 15:30; Stop 10/29/17 at 16:01; Status DC Sevelamer Carbonate (Renvela) 800 mg TIDWMEALS PO Last administered on at 17:17; Start 10/28/17 at 08:00 Ciprofloxacin (Cipro) 500 mg QHS PO Last administered on 10/28/17at 20:38; Start 10/28/17 at 21:00; Stop 11/02/17 at 23:59 Active Scripts Active Cefuroxime (Cefuroxime Axetil) 500 Mg Tablet 500 Mg PO DAILY Reported Glipizide Er (Glipizide) 5 Mg Tab.er.24 1 Tab PO DAILY LAST DOSE GIVEN: NOT GIVEN THIS ADMISSION NEXT DOSE DUE: DATE: TOMORROW TIME: AM Carvedilol 25 Mg Tablet 1 Tab PO BID LAST DOSE GIVEN: DATE: TODAY TIME: AM NEXT DOSE DUE: DATE: TODAY TIME: PM I have reviewed the current psychotropics carefully including drug interactions. Risk benefit ratio favors no change other than as noted in my dictated progress note. Diagnosis: Problems: (1) Dementia in Alzheimer's disease with delusions (2) Dementia in Alzheimer's disease with depression (3) Dementia, vascular, with delusions (4) Dementia, vascular, with depression (5) Impulse control disorder (6) Anxiety disorder JASON HAWLEY MD October 29, 2017 18:44
[2017-10-29 20:09] VITALS: BP 159/83
[2017-10-29] MEDS ORDERED: DEXTROSE ORAL GEL 15 GM TUBE. ONE (21:23)
[2017-10-29] MEDS: CIPROFLOXACIN HCL 500 MG TABLET PO SCH (21:35)
[2017-10-29] MEDS ORDERED: DEXTROSE 50% 25 GM / 50ML DISP.SYRIN. IV ONE (22:08)
[2017-10-29] MEDS ORDERED: DEXTROSE 50% 25 GM / 50ML DISP.SYRIN. IV PRN (22:15)
--- NOTE | 2017-10-30 02:55 | PN ---
DATE: 10/29/2017 SUBJECTIVE: The patient is sitting comfortably in her chair, clearly in no apparent distress. She seemed to be very hyper, racing thoughts and seemed to be in manic stage with a flight of ideas. OBJECTIVE: GENERAL: When I examined her, she was pale, but no jaundice, cyanosis or thyromegaly. No jugular venous distention. No lower limb edema. VITAL SIGNS: Her heart rate was 56, blood pressure 155/84, temperature was 97.4, respiratory rate was 20 and oxygen saturation was 96% on room air. HEAD, EYES, EARS, NOSE AND THROAT: Showed normocephalic, atraumatic. NECK: Supple. HEART: Showed normal first and second heart sounds with no gallop, rub or murmur. CHEST: Clear to auscultation. No crepitation or rhonchi. ABDOMEN: Distended, soft, nontender. No guarding or rigidity. No organomegaly. All hernial orifices intact. Bowel sounds normal. NEUROLOGIC: She was awake, alert, responding appropriately. All cranial nerves intact. She moves extremities without difficulty. Her intake over the last 24 hours was 2400, output was 750. LABORATORY DATA: As of this morning showed serum sodium of 144, potassium 3.8, chloride 114, bicarbonate 19, anion gap of 11, BUN 56, creatinine 3. Estimated GFR was 15 mL per minute. Her glucose was 52. Calcium was 5.8. Total bilirubin, AST, ALT, alkaline phosphatase were normal. Total protein was 5.4. Albumin 2.3. White cell count was 6400, hemoglobin 8.5, hematocrit 25, MCV 93 and platelet count of 151,000. ASSESSMENT: 1. [id number]-[id number]-ryxvqtz kidney injury is resolving. Her creatinine is down to 3. 2. Hypernatremia has improved. 3. Dementia. The patient was seen hallucinating. She has seemed to have a flight of ideas and seemed to be hyper and almost in manic stage. 4. Anemia, stable. 5. Type 2 diabetes mellitus, urinary tract infection with a growth of bacteria. It is resistant to Rocephin. She is now on Cipro 500 mg once a day. 6. Hypertension seems to be well controlled. The patient has lymphedema and bilateral lower limb cellulitis for which she is on Cipro. 7. Hyperparathyroidism, hypocalcemia and hyperphosphatemia due to chronic kidney disease, stage 4. PLAN: Continue to push fluid. Continue with oral antibiotic. I will consult Dr. Gonzalez to see whether she is a candidate for inpatient psychiatric stabilization. AMY CAMERON MD DR: PAVAN/jamir JOB#: [id number] / [id number]
[2017-10-30] MEDS ORDERED: IV DEXTROSE 10% 1,000 ML IV SCH (06:15)
[2017-10-30 06:16] VITALS: BP 145/74
[2017-10-30 06:43] LABS: BASO % 0 % (0-3); EOS # 0.1 x10^3/uL (0.0-0.7); EOS % 3 % (0-3); HEMATOCRIT 24.1 % (36.0-47.0); HEMOGLOBIN 8.4 g/dL (12.0-15.5); LYMPH # 1.2 x10^3/uL (1.0-4.8); LYMPH % 22 % (24-48); MEAN CORPUSCULAR HEMOGLOBIN 32 pg (25-35); MEAN CORPUSCULAR HGB CONC 35 g/dL (31-37); MEAN CORPUSCULAR VOLUME 92 fL (79-100); MONO # 0.4 x10^3/uL (0.0-1.1); MONO % 8 % (0-9); NEUT # 3.7 x10^3uL (1.8-7.7); NEUT % 67 % (31-73); PLATELET COUNT 135 x10^3/uL (140-400); RED BLOOD COUNT 2.63 x10^6/uL (3.50-5.40); RED CELL DISTRIBUTION WIDTH 15.1 % (11.5-14.5); WHITE BLOOD COUNT 5.5 x10^3/uL (4.0-11.0)
[2017-10-30 07:04] LABS: ALBUMIN 2.3 g/dL (3.4-5.0); ALBUMIN/GLOBULIN RATIO 0.7 (1.0-1.7); CALCIUM 6.2 mg/dL (8.5-10.1); GFR 15.3; TOTAL BILIRUBIN 0.2 mg/dL (0.2-1.0); TOTAL PROTEIN 5.4 g/dL (6.4-8.2)
[2017-10-30] MEDS: SEVELAMER CARBONATE 800 MG TABLET. PO SCH ×3 (08:33→17:04)
[2017-10-30] MEDS: CARVEDILOL 12.5 MG TABLET PO SCH ×2 (08:34→17:04)
[2017-10-30] MEDS: NYSTATIN TOPICAL POWDER 15GM BOTTLE. TP SCH (08:34)
[2017-10-30] MEDS: LACTOBACILLUS RHAMNOSUS GG 1 CAPSULE. PO SCH (08:38)
[2017-10-30] MEDS: HEPARIN PF for SUB-Q USE 5,000 UNIT/0.5 ML VIAL. SQ SCH (08:41)
[2017-10-30 12:22] VITALS: BP 157/76
[2017-10-30] MEDS ORDERED: OLANZapine 2.5 MG TABLET PO PRN (12:30)
[2017-10-30] MEDS ORDERED: CALC-157 PO (15:55)
[2017-10-30] MEDS ORDERED: CHOL10003 PO (15:55)
[2017-10-30] MEDS ORDERED: GLIM1TAB PO (15:55)
--- NOTE | 2017-10-30 16:23 | DS ---
DATE OF DISCHARGE: 10/26/2017 HOSPITAL COURSE: The patient is a 72-year-old female patient who was admitted on 10/2010 with recurrent falls. She was evaluated in the Emergency Room and was found initially to be hypernatremic with serum sodium of 149. She has acute on chronic kidney injury. Her creatinine has risen up to 3.8 with a baseline of 3 mg. She was also found to be hypomagnesemic, hypocalcemic. She was rehydrated and her serum sodium has gradually improved such that today her sodium is down to 146. Her creatinine is down to 3, BUN is 59. She was noted to have a tendency to hypoglycemia and I discontinued her glipizide, switched her to Amaryl and she was also noted to be hyperphosphatemia and secondary hyperparathyroidism. ____ parathyroid hormone was high at 296 with normal range between 15-65 and 25-hydroxy vitamin D was low at 10.1, so I did start her on vitamin D and calcium carbonate as a phosphate binder, her serum phosphate was also high at 5.3. We recommended given her dementia and psychosis to go [facility] for placement in a longterm facility; however, her sister refused and would like her to be discharged home. PHYSICAL EXAMINATION: GENERAL: When I saw her today, she looked well and was clearly in no apparent respiratory distress, pale, but no jaundice, cyanosis, or thyromegaly. No jugular venous distension. No ____ limb edema. VITAL SIGNS: Her heart rate was 73, blood pressure 145/74, temperature was 97.8, respiratory rate was 21 and oxygen saturation was 100% on room air. HEAD, EYES, EARS, NOSE AND THROAT: Normocephalic, atraumatic. NECK: Supple. HEART: Showed normal first and second heart sounds with no gallop, rub or murmur. CHEST: Clear to auscultation. No crepitation or rhonchi. ABDOMEN: Distended, soft, nontender. NEUROLOGIC: She is demented without any obvious lateralizing sign. All cranial nerves intact. She moves extremities without difficulty. She ambulates without assistance or assistive devices. Her intake was 1755, output was 1200. LABORATORY DATA: As of this morning, her serum sodium was 146, potassium 4, chloride 112, bicarbonate 21, anion gap of 13, BUN 59, creatinine 3, estimated GFR was ____ mL per minute. Her glucose by the she was discharged was 142. Her calcium was 6.2. Total bilirubin, AST, ALT, alkaline phosphatase were normal. Total protein was 5.4, albumin 2.3. Her white cell count was 5500, hemoglobin 8.4, hematocrit 24, MCV 92, and platelet count 235,000. Her urine culture has grown Citrobacter freundii, treated with 5 days of ciprofloxacin. FINAL DISCHARGE DIAGNOSES: Uaagc-kr-adbworl kidney injury, resolved; hypernatremia, resolved. Urinary tract infection with growth of Citrobacter freundii, treated with ciprofloxacin. Other medical problems include vitamin D deficiency, secondary hyperparathyroidism and hyperphosphatemia. I turned this into hypoglycemia, I discontinued her glipizide and start her on Amaryl 1 mg once a day. AMY CAMERON MD DR: PAVAN/jamir JOB#: [id number] / [id number]
--- NOTE | 2017-10-30 16:25 | CONS ---
DATE OF CONSULTATION: 10/29/2017 PSYCHIATRIC CONSULTATION/PSYCHIATRIC EVALUATION This is a late entry, date of service 10/29/2017, covers the elements not covered in my initial note 10/29/2017. IDENTIFYING DATA: The patient is a 72-year-old female, seen in bed [address], [address] [place] [address] for a psychiatric consult, requested by Dr. Ruiz on account of the patient being increasingly confused, appearing manic, psychotic, actively hallucinating. Reportedly, she has been talking to an imaginary friend, talking to people who were in her room and no one is there. She normally lives at home with her sister and has been hospitalized for UTI. CHIEF COMPLAINT: "No." The patient is not very verbal, lying in bed. Discussed with nursing staff, reviewed the chart. HISTORY OF PRESENT ILLNESS: The patient has a history of dementia, Alzheimer's vascular type. As noted, she has been living at home with her sister, developed UTI and has been admitted to [address] [place] [address]. She has been extremely anxious, psychotic, restless, labile, appears quite grandiose at times resulting in staff noting her to be manic. There is no clear history of bipolar disorder. No suicidal or homicidal ideation. PAST PSYCHIATRIC HISTORY: As above. MEDICAL HISTORY: Positive for her UTI, hypernatremia, frequent falls, chronic renal failure, coronary artery disease, hypertension, hyperlipidemia, diabetes mellitus, lymphedema, acute on chronic renal failure. PAST SURGICAL HISTORY: Noncontributory. FAMILY HISTORY: Noncontributory. SOCIAL HISTORY: As noted above. DRUG ALLERGIES: Negative. DIAGNOSTIC DATA: CT head showed age-appropriate atrophy, no acute changes. MENTAL STATUS EXAM: The patient was seen individually evening of 10/29/2017. The patient is oriented to herself. Insight, judgment, recent and remote memory, attention, concentration, fund of knowledge poor, consistent with her diagnoses mentioned in my initial note. She does appear intermittently psychotic. IMPRESSION: Major neurocognitive disorder, Alzheimer, vascular with delusions, behavioral disturbance; anxiety disorder, unspecified; impulse control disorder, unspecified. Rest as above. PLAN: From a psychiatric standpoint, I have reviewed the EMRAD. We will add Zyprexa 2.5 mg q.2 hours p.r.n. psychosis, agitation and reassess when she is medically stable. If psychotic symptoms and agitation persist, we will consider transferring her [facility] per Dr. Ruiz. Thank you for the opportunity to participate in your patient's care. We will follow with you. JASON HAWLEY MD DR: NANCY/jamir JOB#: [id number] / [id number]
[2017-10-30 17:04] VITALS: BP 157/76
== END 2017-10-30 17:55 | disposition home health service (06) | DRG 683 ==
LOC: ER 19:14 → 1 SOUTH 22:57
PROVIDERS: ADMIT Family Medicine; ATTEND Family Medicine
DX: N17.9 Acute kidney failure, unspecified (principal); N39.0 Urinary tract infection, site not specified; E87.2 Acidosis; E87.0 Hyperosmolality and hypernatremia; L03.115 Cellulitis of right lower limb; E11.22 Type 2 diabetes mellitus with diabetic chronic kidney disease; E11.649 Type 2 diabetes mellitus with hypoglycemia without coma; E83.39 Other disorders of phosphorus metabolism; F02.81 Dementia in other diseases classified elsewhere, unspecified severity, with behavioral disturbance; F01.51 Vascular dementia, unspecified severity, with behavioral disturbance; L03.116 Cellulitis of left lower limb; E83.41 Hypermagnesemia; W18.39XA Other fall on same level, initial encounter; D64.9 Anemia, unspecified; E78.5 Hyperlipidemia, unspecified; R29.6 Repeated falls; E83.51 Hypocalcemia; G30.9 Alzheimer's disease, unspecified; I89.0 Lymphedema, not elsewhere classified; Z16.19 Resistance to other specified beta lactam antibiotics; Z96.659 Presence of unspecified artificial knee joint; I25.10 Atherosclerotic heart disease of native coronary artery without angina pectoris; N18.4 Chronic kidney disease, stage 4 (severe); N25.81 Secondary hyperparathyroidism of renal origin; F41.9 Anxiety disorder, unspecified; F32.9 Major depressive disorder, single episode, unspecified; F63.9 Impulse disorder, unspecified; I12.9 Hypertensive chronic kidney disease with stage 1 through stage 4 chronic kidney disease, or unspecified chronic kidney disease; Y93.89 Activity, other specified; Y92.89 Other specified places as the place of occurrence of the external cause; Y99.8 Other external cause status; Z90.49 Acquired absence of other specified parts of digestive tract; Z79.899 Other long term (current) drug therapy
CPT/HCPCS: 36415; 70450; 80048; 80053; 81001; 82274; 82306; 82310; 82947; 83540; 83550; 83735; 83970; 84134; 84484; 85025; 87086; 87186; 93005; 96361; 96374; J0696; J3475; P9612; 97530; 99285-25; J7030

== ENCOUNTER 2017-10-31 13:42 | Inpatient (IN) | payer MEDICARE, BC ==
[~2017-10-31] VITALS: Ht 157.5 cm; Wt 69.6 kg
[~2017-10-31 13:42] MED LIST changes: +CALC-157 PO; +CHOL10003 PO; +GLIM1TAB PO
[2017-10-31 14:22] VITALS: BP 150/64
[2017-10-31] MEDS ORDERED: MAGNESIUM HYDROXIDE 2,400 MG/30 ML ORAL.SUSP. PO PRN (15:00)
[2017-10-31] MEDS ORDERED: MAG HYDROX/AL HYDROX/SIMETH 30 ML ORAL.SUSP PO PRN (15:00)
[2017-10-31] MEDS ORDERED: ACETAMINOPHEN 325 MG TABLET PO PRN (15:00)
[2017-10-31] MEDS ORDERED: METHYL SALICYLATE/MENTHOL TOPICAL OINTMENT 29GM TUBE. TP PRN (15:00)
[2017-10-31 15:30] LABS: BASO % 1 % (0-3); EOS # 0.2 x10^3/uL (0.0-0.7); EOS % 2 % (0-3); HEMATOCRIT 29.6 % (36.0-47.0); HEMOGLOBIN 10.1 g/dL (12.0-15.5); LYMPH # 1.5 x10^3/uL (1.0-4.8); LYMPH % 15 % (24-48); MEAN CORPUSCULAR HEMOGLOBIN 32 pg (25-35); MEAN CORPUSCULAR HGB CONC 34 g/dL (31-37); MEAN CORPUSCULAR VOLUME 93 fL (79-100); MONO # 0.6 x10^3/uL (0.0-1.1); MONO % 6 % (0-9); NEUT # 7.5 x10^3uL (1.8-7.7); NEUT % 76 % (31-73); PLATELET COUNT 169 x10^3/uL (140-400); WHITE BLOOD COUNT 9.8 x10^3/uL (4.0-11.0)
[2017-10-31 15:55] LABS: ALBUMIN/GLOBULIN RATIO 0.8 (1.0-1.7); CALCIUM 6.5 mg/dL (8.5-10.1); CREATININE 3.2 mg/dL (0.6-1.0); GFR 14.2; MAGNESIUM 1.5 mg/dL (1.8-2.4); POTASSIUM 4.5 mmol/L (3.5-5.1); TOTAL BILIRUBIN 0.2 mg/dL (0.2-1.0); TOTAL PROTEIN 6.9 g/dL (6.4-8.2)
[2017-10-31 18:33] VITALS: BP 161/80
--- NOTE | 2017-10-31 19:59 | HP ---
ADMIT DATE: 10/31/2017 PSYCHIATRIC ADMISSION HISTORY/EVALUATION This note covers the elements not covered in my initial note of 10/31/2017. IDENTIFYING DATA: The patient is a 72-year-old female who I saw for a psychiatric consult on [address] [place] couple of days back on account of increased confusion, manic, disorganized, disruptive behaviors. We had considered transferring her to the [facility] unit, but the sister who is a DPOA insisted on her being discharge home to home health. Home health services called us today as the patient was unmanageable at home on account of worsening hallucinations, confusion and agitation. Behaviors were deemed dangerous and she was referred for inpatient psychiatric stabilization per Dr. Ruiz. CHIEF COMPLAINT: "I have been singing here. We are all going to go there." The patient is quite disorganized, manic, hyperverbal, quite grandiose, very expressive with her arms, flailing at times. HISTORY OF PRESENT ILLNESS: The patient has a history of dementia, Alzheimer's vascular type. She has been residing at home with her sister, who has been caring for her. More recently, she has appeared quite manic, grandiose, hyperverbal, sleep and appetite changes have been noted. No clear suicidal or homicidal ideation. The patient has been eloping from home, refusing her medications, unmanageable with the sister and home health services. PAST PSYCHIATRIC HISTORY: As above. PAST MEDICAL HISTORY: Positive for hypercalcemia, history of hypoglycemia, edema, coronary artery disease, hypertension, hyperlipidemia, chronic kidney disease, anemia, diabetes mellitus, UTI. DIET: Regular. ALLERGIES: Negative. CODE STATUS: Full code. Ambulates ad mart. Takes her medications whole hidden. CURRENT PSYCHOTROPICS: None. FAMILY HISTORY: Noncontributory. SOCIAL HISTORY: No alcohol, drug abuse, physical, sexual or elder abuse history is noted. Not known to be a perpetrator. MENTAL STATUS EXAMINATION: The patient was seen individually. She is oriented to herself, quite hyperverbal, agitated, labile in her mood, grandiose. Insight, judgment, recent and remote memory, attention, concentration, fund of knowledge poor, consistent with her diagnoses. IMPRESSION: Major neurocognitive disorder, Alzheimer, vascular with delusion, depression, behavioral disturbance; anxiety disorder, unspecified; impulse control disorder, unspecified; bipolar 1 disorder, unspecified. Rest as above. PLAN[facility]. I will see the patient daily individually from a psychiatric standpoint, medical followup per Dr. Ruiz/Dr. Jarvis. We will start her on Seroquel 12.5 mg 3 times a day as a mood stabilizer, trazodone 50 mg at bedtime p.r.n., may repeat x 1 for insomnia. Make further adjustments. Consider Depakote as a mood stabilizer after the baseline assessment. MAN Letitia HAWLEY MD DR: NANCY/jamir JOB#: [id number] / [id number]
[2017-10-31] MEDS: CALCIUM CARB/VIT D3 500/200 TABLET PO SCH (21:20)
[2017-10-31] MEDS: traZODone 50 MG TABLET. PO PRN (21:20)
--- NOTE | 2017-10-31 22:26 | PDOC ---
Exam Note: Pino Note: Please also refer to the separate dictated note~for this date of service dictated separately.~Patient seen individually. Discussed the patient with Nursing staff reviewed the chart.~Reviewed interim history and current functioning. Reviewed vital signs,~Labs/ Radiology~and current medications noted below. Continue current treatment with the changes noted in the dictated addendum note Assessment: Vital Signs: Vital Signs Date Time Temp Pulse Resp B/P (MAP) Pulse Ox O2 Delivery O2 Flow Rate FiO2 10/31/17 18:33 97.6 69 22 161/80 (107) 100 Labs: Laboratory Tests Test 10/31/17 15:20 White Blood Count 9.8 x10^3/uL (4.0-11.0) # Red Blood Count 3.20 x10^6/uL (3.50-5.40) L Hemoglobin 10.1 g/dL (12.0-15.5) L Hematocrit 29.6 % (36.0-47.0) L Mean Corpuscular Volume 93 fL (79-100) Mean Corpuscular Hemoglobin 32 pg (25-35) Mean Corpuscular Hemoglobin Concent 34 g/dL (31-37) Red Cell Distribution Width 15.0 % (11.5-14.5) H Platelet Count 169 x10^3/uL (140-400) Neutrophils (%) (Auto) 76 % (31-73) H Lymphocytes (%) (Auto) 15 % (24-48) L Monocytes (%) (Auto) 6 % (0-9) Eosinophils (%) (Auto) 2 % (0-3) Basophils (%) (Auto) 1 % (0-3) Neutrophils # (Auto) 7.5 x10^3uL (1.8-7.7) Lymphocytes # (Auto) 1.5 x10^3/uL (1.0-4.8) Monocytes # (Auto) 0.6 x10^3/uL (0.0-1.1) Eosinophils # (Auto) 0.2 x10^3/uL (0.0-0.7) Basophils # (Auto) 0.0 x10^3/uL (0.0-0.2) Sodium Level 144 mmol/L (136-145) Potassium Level 4.5 mmol/L (3.5-5.1) Chloride Level 110 mmol/L (98-107) H Carbon Dioxide Level 22 mmol/L (21-32) Anion Gap 12 (6-14) Blood Urea Nitrogen 60 mg/dL (7-20) H Creatinine 3.2 mg/dL (0.6-1.0) H Estimated GFR (Cockcroft-Gault) 14.2 BUN/Creatinine Ratio 19 (6-20) Glucose Level 145 mg/dL (70-99) H Calcium Level 6.5 mg/dL (8.5-10.1) L Magnesium Level 1.5 mg/dL (1.8-2.4) L Total Bilirubin 0.2 mg/dL (0.2-1.0) Aspartate Amino Transferase (AST) 43 U/L (15-37) H Alanine Aminotransferase (ALT) 70 U/L (14-59) H Alkaline Phosphatase 144 U/L (46-116) H Total Protein 6.9 g/dL (6.4-8.2) Albumin 3.0 g/dL (3.4-5.0) L Albumin/Globulin Ratio 0.8 (1.0-1.7) L Current Medications: Meds: Current Medications Acetaminophen (Tylenol) 650 mg PRN Q6HRS PRN PO PAIN / TEMP; Start 10/31/17 at 15:00 Multi-Ingredient Ointment (Analgesic [place]) 1 fuad PRN QID PRN TP MUSCLE PAIN; Start 10/31/17 at 15:00 Al Hydroxide/Mg Hydroxide (Mylanta Plus Xs) 15 ml PRN AFTMEALHC PRN PO DYSPEPSIA; Start 10/31/17 at 15:00 Magnesium Hydroxide (Milk Of Magnesia) 2,400 mg PRN QHS PRN PO CONSTIPATION; Start 10/31/17 at 15:00 Calcium/Vitamin D (Oscal D 500mg/ 200uts) 1 tab TID PO Last administered on at 21:20; Start 10/31/17 at 21:00 Vitamin D (Vitamin D3) 1,000 unit DAILY PO ; Start 11/01/17 at 09:00 Glimepiride (Amaryl) 1 mg DAILY PO ; Start 11/01/17 at 09:00 Trazodone HCl (Desyrel) 50 mg PRN QHS PRN PO INSOMNIA, MAY REPEAT X1 Last administered on 10/31/17at 21:20; Start 10/31/17 at 18:45 Quetiapine Fumarate (SEROquel) 12.5 mg TID@0900,1300,1700 PO ; Start 11/01/17 at 09:00 Active Scripts Active Calcium 500 + Vit D 200 Tablet (Calcium Carbonate/Vitamin D3) 1 Each Tablet 1 Each PO TID 30 Days Vitamin D3 (Cholecalciferol (Vitamin D3)) 1,000 Unit Tablet 1 Tab PO DAILY Amaryl (Glimepiride) 1 Mg Tablet 1 Tab PO DAILY Reported Carvedilol 25 Mg Tablet 1 Tab PO BID LAST DOSE GIVEN: DATE: TODAY TIME: WITH DINNER NEXT DOSE DUE: DATE: TOMORROW TIME: WITH BREAKFAST I have reviewed the current psychotropics carefully including drug interactions. Risk benefit ratio favors no change other than as noted in my dictated progress note. Diagnosis: Problems: (1) Anxiety disorder (2) Impulse control disorder (3) Dementia, vascular, with depression (4) Dementia, vascular, with delusions (5) Dementia in Alzheimer's disease with depression (6) Dementia in Alzheimer's disease with delusions (7) Acute on chronic kidney failure JASON HAWLEY MD October 31, 2017 22:26
[2017-11-01 05:09] LABS: HEMOGLOBIN A1C 4.5 % (4.8-5.6)
[2017-11-01 06:15] LABS: T3 TOTAL 71 ng/dL (71-180); THYROXINE 7.1 ug/dL (4.5-12.0)
[2017-11-01 06:18] VITALS: BP 162/78
[2017-11-01] MEDS: CALCIUM CARB/VIT D3 500/200 TABLET PO SCH ×4 (10:07→22:21)
[2017-11-01] MEDS: QUEtiapine 25 MG TABLET. PO SCH ×3 (10:07→16:44)
[2017-11-01] MEDS: CHOLECALCIFEROL (VITAMIN D3) 1,000 UNIT TABLET PO SCH (10:07)
[2017-11-01] MEDS: GLIMEPIRIDE 2 MG TABLET PO SCH (10:08)
[2017-11-01 11:41] LABS: THYROID STIM HORMONE (TSH) 3.267 uIU/mL (0.358-3.740)
[2017-11-01 16:59] VITALS: BP 154/73
--- NOTE | 2017-11-01 20:28 | PDOC ---
Exam Note: Pino Note: Please also refer to the separate dictated note~for this date of service dictated separately.~Patient seen individually. Discussed the patient with Nursing staff reviewed the chart.~Reviewed interim history and current functioning. Reviewed vital signs,~Labs/ Radiology~and current medications noted below. Continue current treatment with the changes noted in the dictated addendum note Assessment: Vital Signs: Vital Signs Date Time Temp Pulse Resp B/P (MAP) Pulse Ox O2 Delivery O2 Flow Rate FiO2 11/01/17 16:59 96.8 68 22 154/73 (100) 99 Room Air I&O Intake and Output 11/01/17 07:00 Intake Total 240 ml Balance 240 ml Intake Oral 240 ml Labs: Laboratory Tests Test 11/01/17 07:23 11/01/17 11:45 Glucose (Fingerstick) 167 mg/dL (70-99) H 161 mg/dL (70-99) H Current Medications: Meds: Current Medications Acetaminophen (Tylenol) 650 mg PRN Q6HRS PRN PO PAIN / TEMP Last administered on 11/01/17at 12:57; Start 10/31/17 at 15:00 Multi-Ingredient Ointment (Analgesic [place]) 1 fuad PRN QID PRN TP MUSCLE PAIN; Start 10/31/17 at 15:00 Al Hydroxide/Mg Hydroxide (Mylanta Plus Xs) 15 ml PRN AFTMEALHC PRN PO DYSPEPSIA; Start 10/31/17 at 15:00 Magnesium Hydroxide (Milk Of Magnesia) 2,400 mg PRN QHS PRN PO CONSTIPATION; Start 10/31/17 at 15:00 Calcium/Vitamin D (Oscal D 500mg/ 200uts) 1 tab TID PO Last administered on at 10:07; Start 10/31/17 at 21:00 Vitamin D (Vitamin D3) 1,000 unit DAILY PO Last administered on 11/01/17at 10:07 ; Start 11/01/17 at 09:00 Glimepiride (Amaryl) 1 mg DAILY PO Last administered on 11/01/17at 10:08; Start 11/01/17 at 09:00 Trazodone HCl (Desyrel) 50 mg PRN QHS PRN PO INSOMNIA, MAY REPEAT X1 Last administered on 10/31/17at 21:20; Start 10/31/17 at 18:45 Quetiapine Fumarate (SEROquel) 12.5 mg TID@0900,1300,1700 PO Last administered on 11/01/17at 16:44; Start 11/01/17 at 09:00 Active Scripts Active Calcium 500 + Vit D 200 Tablet (Calcium Carbonate/Vitamin D3) 1 Each Tablet 1 Each PO TID 30 Days Vitamin D3 (Cholecalciferol (Vitamin D3)) 1,000 Unit Tablet 1 Tab PO DAILY Amaryl (Glimepiride) 1 Mg Tablet 1 Tab PO DAILY Reported Carvedilol 25 Mg Tablet 1 Tab PO BID LAST DOSE GIVEN: DATE: TODAY TIME: WITH DINNER NEXT DOSE DUE: DATE: TOMORROW TIME: WITH BREAKFAST I have reviewed the current psychotropics carefully including drug interactions. Risk benefit ratio favors no change other than as noted in my dictated progress note. Diagnosis: Problems: (1) Anxiety disorder (2) Impulse control disorder (3) Altered level of consciousness (4) Dementia, vascular, with depression (5) Dementia, vascular, with delusions (6) Dementia in Alzheimer's disease with depression (7) Dementia in Alzheimer's disease with delusions JASON HAWLEY MD November 01, 2017 20:28
--- NOTE | 2017-11-02 00:22 | CONS ---
DATE OF CONSULTATION: 11/01/2017 REASON FOR CONSULTATION: Medical management. HISTORY OF PRESENT ILLNESS: The patient is a 72-year-old female patient who was discharged only recently from [facility] and prior to discharge, I recommended her sister to admit her to inpatient psychiatric unit, but she refused and she was taken home. However, the patient continued to be manic, hyperverbal, refusing medication, urinating everywhere. She was at home only one day and on one night, the patient was brought back here to [facility] for inpatient psychiatric stabilization. PAST MEDICAL HISTORY: Significant for chronic kidney disease, hypertension, hyperlipidemia, coronary artery disease, recurrent episodes of hypoglycemia, hypocalcemia, and hyperphosphatemia. She has also had anemia, type 2 diabetes, urinary tract infection; however. PAST SURGICAL HISTORY: Unremarkable. PAST PSYCHIATRIC HISTORY: Significant for dementia with behavior disorder or hallucination. ALLERGIES: She has no known drug allergies. MEDICATIONS: She is currently on following medications: She is on carvedilol 25 mg twice a day, glimepiride 1 mg once a day, cholecalciferol 1000 international units once a day, calcium carbonate with vitamin D3 one tablet 3 times a day. REVIEW OF SYSTEMS: Unfortunately unobtainable. PHYSICAL EXAMINATION: GENERAL: On examining her today, she looked well and was resting flat, comfortably in bed, in no apparent respiratory distress, pale, but no jaundice, cyanosis, or thyromegaly. No jugular venous distension. No lower limb edema. VITAL SIGNS: His heart rate was 68, blood pressure 154/73, temperature was 96.8, respiratory rate 22, and oxygen saturation was 99%. HEAD, EYES, EARS, NOSE, AND THROAT: Normocephalic, atraumatic. NECK: Supple. HEART: Showed normal first and second heart sounds. No gallop, rub or murmur. CHEST: Clear to auscultation. No crepitation or rhonchi. ABDOMEN: Distended, soft, and nontender. NEUROLOGIC: She is awake, alert; however, no lateralizing sign. Cranial nerves intact. EXTREMITIES: She moves extremities without difficulty. She ambulates without assistance or assistive devices. LABORATORY DATA: Her lab work this morning showed a white cell count 9800, hemoglobin 10, hematocrit 30, MCV 93, and platelet count of 169,000, with normal manual differential. Her chemistry showed a serum sodium 144, potassium 4.5, chloride 110, bicarbonate 22, anion gap of 12, BUN 60, creatinine 3.2, estimated GFR was 14 mL per minute. Her glucose 145. Her calcium was 6.5, magnesium was 1.5. Total bilirubin is normal; however, AST, ALT, alkaline phosphatase slightly elevated. Total protein was 6.9, albumin 3. Her hemoglobin A1c was 4.5%. Triglycerides 132, cholesterol 128, LDL was 55, VLDL 26, HDL was 47, the ratio was 2. Her serum B12 was 379 and her total T4 was 7.1, total T3 was also slightly low, but the TSH is normal at 3.267. Her RPR is still pending at the time of this dictation. So all in all, this is a 72-year-old female patient who was admitted on account of being in a manic stage, hyperverbal, refusing medication, urinating everywhere, has been back home only one day. She was discharged from [address] [place] [address] where she was admitted with hyponatremia and acute on chronic kidney injury as well as hypocalcemia, hypomagnesemia. She did have also urinary tract infection, treated with and it grew Citrobacter freundii, treated with ciprofloxacin. While at the [address] [place] [address], she has recurrent episode of hypoglycemia and I discontinued her glipizide and I started her on Amaryl 1 mg once a day. She is already started on vitamin D and calcium supplement to replenish of calcium and also to act as a phosphate binder. We will monitor her blood sugar and make sure that she is having a recurrent episode of hypoglycemia so far. Apparently, her blood sugar seems to be stable at around 160. Thank you, Dr. Gonzalez for allowing me to participate in the care of this patient. AMY CAMERON MD DR: PAVAN/jamir JOB#: [id number] / [id number]
[2017-11-02 05:34] VITALS: BP 146/83
[2017-11-02] MEDS: GLIMEPIRIDE 2 MG TABLET PO SCH (08:15)
[2017-11-02] MEDS: CHOLECALCIFEROL (VITAMIN D3) 1,000 UNIT TABLET PO SCH (08:16)
[2017-11-02] MEDS: QUEtiapine 25 MG TABLET. PO SCH ×3 (08:16→17:31)
[2017-11-02] MEDS: CALCIUM CARB/VIT D3 500/200 TABLET PO SCH ×3 (08:16→20:46)
[2017-11-02 11:59] LABS: BACTERIA,URINE 0 /HPF (0-FEW); BILIRUBIN,URINE NEG (NEG); CLARITY,URINE HAZY; COLOR,URINE YELLOW; GLUCOSE,URINE NEG (NEG); NITRITE,URINE NEG (NEG); RBC,URINE RARE /HPF (0-2); SQUAMOUS EPITHELIAL CELL,UR OCC /LPF; UROBILINOGEN,URINE 0.2 mg/dL (0.2 mg/dL); WBC,URINE 0 /HPF (0-4)
[2017-11-02 16:37] VITALS: BP 171/87
[2017-11-02] MEDS: traZODone 50 MG TABLET. PO PRN (22:24)
--- NOTE | 2017-11-03 03:49 | PN ---
DATE: 11/01/2017 This is a late entry for 11/01/2017 covers elements not covered in my initial note of 11/01/2017. SUBJECTIVE: I met with the patient in the evening. The patient slept 6-1/4 hours, received trazodone. Her sister came, was quite upset with the nursing staff, insisted on the patient having a ISABEL hose and had brought one for her. Apparently, sister has been taking care of the patient at home, is quite remarkable given the marked cognitive dysfunction of the patient. REVIEW OF SYSTEMS: No CV, , pulmonary, eye, ENT system symptoms on review. Reliability poor. MENTAL STATUS EXAM: Oriented to herself. Insight, judgment, recent and remote memory, attention, concentration, fund of knowledge poor, consistent with her diagnosis mentioned in my initial note. PLAN: Continue psychotropics mentioned in my initial note. Seroquel was initiated. Consider Depakote. JASON HAWLEY MD DR: NANCY/jamir JOB#: [id number] / [id number]
[2017-11-03 06:23] VITALS: BP 172/85
[2017-11-03] MEDS: GLIMEPIRIDE 2 MG TABLET PO SCH (09:35)
[2017-11-03] MEDS: CHOLECALCIFEROL (VITAMIN D3) 1,000 UNIT TABLET PO SCH (09:36)
[2017-11-03] MEDS: QUEtiapine 25 MG TABLET. PO SCH ×3 (09:36→17:17)
[2017-11-03] MEDS: CALCIUM CARB/VIT D3 500/200 TABLET PO SCH ×3 (09:36→20:52)
[2017-11-03 16:43] VITALS: BP 186/96
[2017-11-03] MEDS ORDERED: DIVALPROEX 125 MG CAP.SPRINK PO SCH (19:00)
[2017-11-03] MEDS: traZODone 50 MG TABLET. PO PRN (20:42)
--- NOTE | 2017-11-03 23:05 | PDOC ---
Exam Note: Pino Note: Late entry for date of service November 02, 2017. Please also refer to the separate dictated note~for this date of service dictated separately.~Patient seen individually. Discussed the patient with Nursing staff reviewed the chart.~ Reviewed interim history and current functioning. Reviewed vital signs,~Labs/ Radiology~and current medications noted below. Continue current treatment with the changes noted in the dictated addendum note Assessment: Vital Signs: VS - Last 72 Hours, by Label Date Time Temp Pulse Resp B/P (MAP) Pulse Ox O2 Delivery O2 Flow Rate FiO2 11/03/17 16:43 96.9 70 20 186/96 (126) 98 11/03/17 06:23 97.5 76 18 172/85 (114) 98 11/02/17 16:37 97.2 88 20 171/87 (115) 100 11/02/17 05:34 97.4 75 20 146/83 (104) 100 11/01/17 16:59 96.8 68 22 154/73 (100) 99 Room Air 11/01/17 06:18 97.5 60 18 162/78 (106) 91 Vital Signs Date Time Temp Pulse Resp B/P (MAP) Pulse Ox O2 Delivery O2 Flow Rate FiO2 11/03/17 16:43 96.9 70 20 186/96 (126) 98 11/01/17 16:59 Room Air I&O Intake and Output 11/03/17 07:00 Intake Total 960 ml Balance 960 ml Intake Oral 960 ml # Bowel Movements 1 Labs: Laboratory Tests Test 11/03/17 07:10 Glucose (Fingerstick) 89 mg/dL (70-99) Current Medications: Meds: Current Medications Acetaminophen (Tylenol) 650 mg PRN Q6HRS PRN PO PAIN / TEMP Last administered on 11/01/17at 12:57; Start 10/31/17 at 15:00 Multi-Ingredient Ointment (Analgesic [place]) 1 fuad PRN QID PRN TP MUSCLE PAIN; Start 10/31/17 at 15:00 Al Hydroxide/Mg Hydroxide (Mylanta Plus Xs) 15 ml PRN AFTMEALHC PRN PO DYSPEPSIA; Start 10/31/17 at 15:00 Magnesium Hydroxide (Milk Of Magnesia) 2,400 mg PRN QHS PRN PO CONSTIPATION; Start 10/31/17 at 15:00 Calcium/Vitamin D (Oscal D 500mg/ 200uts) 1 tab TID PO Last administered on at 13:55; Start 10/31/17 at 21:00 Vitamin D (Vitamin D3) 1,000 unit DAILY PO Last administered on 11/03/17at 09:36 ; Start 11/01/17 at 09:00 Glimepiride (Amaryl) 1 mg DAILY PO Last administered on 11/03/17at 09:35; Start 11/01/17 at 09:00 Trazodone HCl (Desyrel) 50 mg PRN QHS PRN PO INSOMNIA, OCTOBER REPEAT X1 Last administered on 11/03/17at 20:42; Start 10/31/17 at 18:45 Quetiapine Fumarate (SEROquel) 12.5 mg TID@0900,1300,1700 PO Last administered on 11/03/17at 17:17; Start 11/01/17 at 09:00 Divalproex Sodium (Depakote Sprinkles) 125 mg BIDWMEALS PO ; Start 11/03/17 at 19:00; Stop 11/03/17 at 19:23; Status DC Divalproex Sodium (Depakote Sprinkles) 125 mg BID@0900,1700 PO ; Start 11/04/17 at 09:00 Active Scripts Active Calcium 500 + Vit D 200 Tablet (Calcium Carbonate/Vitamin D3) 1 Each Tablet 1 Each PO TID 30 Days Vitamin D3 (Cholecalciferol (Vitamin D3)) 1,000 Unit Tablet 1 Tab PO DAILY Amaryl (Glimepiride) 1 Mg Tablet 1 Tab PO DAILY Reported Carvedilol 25 Mg Tablet 1 Tab PO BID LAST DOSE GIVEN: DATE: TODAY TIME: WITH DINNER NEXT DOSE DUE: DATE: TOMORROW TIME: WITH BREAKFAST I have reviewed the current psychotropics carefully including drug interactions. Risk benefit ratio favors no change other than as noted in my dictated progress note. Diagnosis: Problems: (1) Anxiety disorder (2) Altered level of consciousness (3) Dementia, vascular, with depression (4) Dementia, vascular, with delusions (5) Dementia in Alzheimer's disease with depression (6) Dementia in Alzheimer's disease with delusions JASON HAWLEY MD November 03, 2017 23:05
--- NOTE | 2017-11-03 23:28 | PDOC ---
Exam Note: Pino Note: Please also refer to the separate dictated note~for this date of service dictated separately.~Patient seen individually. Discussed the patient with Nursing staff reviewed the chart.~Reviewed interim history and current functioning. Reviewed vital signs,~Labs/ Radiology~and current medications noted below. Continue current treatment with the changes noted in the dictated addendum note Assessment: Vital Signs: Vital Signs Date Time Temp Pulse Resp B/P (MAP) Pulse Ox O2 Delivery O2 Flow Rate FiO2 11/03/17 16:43 96.9 70 20 186/96 (126) 98 11/01/17 16:59 Room Air I&O Intake and Output 11/03/17 07:00 Intake Total 960 ml Balance 960 ml Intake Oral 960 ml # Bowel Movements 1 Labs: Laboratory Tests Test 11/03/17 07:10 Glucose (Fingerstick) 89 mg/dL (70-99) Current Medications: Meds: Current Medications Acetaminophen (Tylenol) 650 mg PRN Q6HRS PRN PO PAIN / TEMP Last administered on 11/01/17at 12:57; Start 10/31/17 at 15:00 Multi-Ingredient Ointment (Analgesic [place]) 1 fuad PRN QID PRN TP MUSCLE PAIN; Start 10/31/17 at 15:00 Al Hydroxide/Mg Hydroxide (Mylanta Plus Xs) 15 ml PRN AFTMEALHC PRN PO DYSPEPSIA; Start 10/31/17 at 15:00 Magnesium Hydroxide (Milk Of Magnesia) 2,400 mg PRN QHS PRN PO CONSTIPATION; Start 10/31/17 at 15:00 Calcium/Vitamin D (Oscal D 500mg/ 200uts) 1 tab TID PO Last administered on at 13:55; Start 10/31/17 at 21:00 Vitamin D (Vitamin D3) 1,000 unit DAILY PO Last administered on 11/03/17at 09:36 ; Start 11/01/17 at 09:00 Glimepiride (Amaryl) 1 mg DAILY PO Last administered on 11/03/17at 09:35; Start 11/01/17 at 09:00 Trazodone HCl (Desyrel) 50 mg PRN QHS PRN PO INSOMNIA, MAY REPEAT X1 Last administered on 11/03/17at 20:42; Start 5/16/18 at 18:45 Quetiapine Fumarate (SEROquel) 12.5 mg TID@0900,1300,1700 PO Last administered on 11/03/17at 17:17; Start 11/01/17 at 09:00 Divalproex Sodium (Depakote Sprinkles) 125 mg BIDWMEALS PO ; Start 11/03/17 at 19:00; Stop 11/03/17 at 19:23; Status DC Divalproex Sodium (Depakote Sprinkles) 125 mg BID@0900,1700 PO ; Start 11/04/17 at 09:00 Active Scripts Active Calcium 500 + Vit D 200 Tablet (Calcium Carbonate/Vitamin D3) 1 Each Tablet 1 Each PO TID 30 Days Vitamin D3 (Cholecalciferol (Vitamin D3)) 1,000 Unit Tablet 1 Tab PO DAILY Amaryl (Glimepiride) 1 Mg Tablet 1 Tab PO DAILY Reported Carvedilol 25 Mg Tablet 1 Tab PO BID LAST DOSE GIVEN: DATE: TODAY TIME: WITH DINNER NEXT DOSE DUE: DATE: TOMORROW TIME: WITH BREAKFAST I have reviewed the current psychotropics carefully including drug interactions. Risk benefit ratio favors no change other than as noted in my dictated progress note. Diagnosis: Problems: (1) Anxiety disorder (2) Dementia, vascular, with depression (3) Dementia, vascular, with delusions (4) Dementia in Alzheimer's disease with depression (5) Dementia in Alzheimer's disease with delusions JASON HAWLEY MD November 03, 2017 23:28
[2017-11-04 06:14] VITALS: BP 163/94
[2017-11-04] MEDS: CALCIUM CARB/VIT D3 500/200 TABLET PO SCH ×3 (09:49→20:47)
[2017-11-04] MEDS: GLIMEPIRIDE 2 MG TABLET PO SCH (09:50)
[2017-11-04] MEDS: CHOLECALCIFEROL (VITAMIN D3) 1,000 UNIT TABLET PO SCH (09:51)
[2017-11-04] MEDS: QUEtiapine 25 MG TABLET. PO SCH ×3 (09:51→17:16)
[2017-11-04] MEDS: DIVALPROEX 125 MG CAP.SPRINK PO SCH ×2 (09:51→17:16)
[2017-11-04 15:45] VITALS: BP 170/87
--- NOTE | 2017-11-04 20:57 | PDOC ---
Exam Note: Pino Note: Please also refer to the separate dictated note~for this date of service dictated separately.~Patient seen individually. Discussed the patient with Nursing staff reviewed the chart.~Reviewed interim history and current functioning. Reviewed vital signs,~Labs/ Radiology~and current medications noted below. Continue current treatment with the changes noted in the dictated addendum note Assessment: Vital Signs: Vital Signs Date Time Temp Pulse Resp B/P (MAP) Pulse Ox O2 Delivery O2 Flow Rate FiO2 11/04/17 15:45 97.6 77 18 170/87 (114) 93 11/01/17 16:59 Room Air I&O Intake and Output 11/04/17 07:00 Intake Total 360 ml Balance 360 ml Intake Oral 360 ml # Voids 1 # Bowel Movements 1 Labs: Laboratory Tests Test 11/04/17 07:31 Glucose (Fingerstick) 75 mg/dL (70-99) Current Medications: Meds: Current Medications Acetaminophen (Tylenol) 650 mg PRN Q6HRS PRN PO PAIN / TEMP Last administered on 11/01/17at 12:57; Start 10/31/17 at 15:00 Multi-Ingredient Ointment (Analgesic [place]) 1 fuad PRN QID PRN TP MUSCLE PAIN; Start 10/31/17 at 15:00 Al Hydroxide/Mg Hydroxide (Mylanta Plus Xs) 15 ml PRN AFTMEALHC PRN PO DYSPEPSIA; Start 10/31/17 at 15:00 Magnesium Hydroxide (Milk Of Magnesia) 2,400 mg PRN QHS PRN PO CONSTIPATION; Start 10/31/17 at 15:00 Calcium/Vitamin D (Oscal D 500mg/ 200uts) 1 tab TID PO Last administered on at 20:47; Start 10/31/17 at 21:00 Vitamin D (Vitamin D3) 1,000 unit DAILY PO Last administered on 11/04/17at 09:51 ; Start 11/01/17 at 09:00 Glimepiride (Amaryl) 1 mg DAILY PO Last administered on 11/04/17at 09:50; Start 11/01/17 at 09:00 Trazodone HCl (Desyrel) 50 mg PRN QHS PRN PO INSOMNIA, MAY REPEAT X1 Last administered on 11/03/17at 20:42; Start 10/31/17 at 18:45 Quetiapine Fumarate (SEROquel) 12.5 mg TID@0900,1300,1700 PO Last administered on 11/04/17at 17:16; Start 11/01/17 at 09:00 Divalproex Sodium (Depakote Sprinkles) 125 mg BIDWMEALS PO ; Start 11/03/17 at 19:00; Stop 11/03/17 at 19:23; Status DC Divalproex Sodium (Depakote Sprinkles) 125 mg BID@0900,1700 PO Last administered on 11/04/17at 17:16; Start 11/04/17 at 09:00 Active Scripts Active Calcium 500 + Vit D 200 Tablet (Calcium Carbonate/Vitamin D3) 1 Each Tablet 1 Each PO TID 30 Days Vitamin D3 (Cholecalciferol (Vitamin D3)) 1,000 Unit Tablet 1 Tab PO DAILY Amaryl (Glimepiride) 1 Mg Tablet 1 Tab PO DAILY Reported Carvedilol 25 Mg Tablet 1 Tab PO BID LAST DOSE GIVEN: DATE: TODAY TIME: WITH DINNER NEXT DOSE DUE: DATE: TOMORROW TIME: WITH BREAKFAST I have reviewed the current psychotropics carefully including drug interactions. Risk benefit ratio favors no change other than as noted in my dictated progress note. Diagnosis: Problems: (1) Anxiety disorder (2) Dementia, vascular, with depression (3) Dementia, vascular, with delusions (4) Dementia in Alzheimer's disease with depression (5) Dementia in Alzheimer's disease with delusions JASON HAWLEY MD November 04, 2017 20:57
[2017-11-05 06:17] VITALS: BP 149/74
--- NOTE | 2017-11-05 08:17 | PN ---
DATE: 11/02/2017 This late entry 11/02/2017 covers elements not covered in my initial note 11/02/2017. Met with the patient in the evening. The patient remains quite hyperverbal, anxious, restless, confused, wandering, refused bedtime medications, refused them during the day on 11/02/2017. REVIEW OF SYSTEMS: No CV, , pulmonary, eye, ENT system symptoms on review. Reliability poor. MENTAL STATUS EXAM: Oriented to herself. Insight, judgment, recent and remote memory, attention, concentration, fund of knowledge poor, consistent with her diagnosis mentioned in my initial note. PLAN: Continue current psychotropics. May need to add Depakote as a mood stabilizer. Maintain Seroquel and trazodone. MAN Letitia HAWLEY MD DR: NANCY/jamir JOB#: [id number] / [id number]
[2017-11-05] MEDS: GLIMEPIRIDE 2 MG TABLET PO SCH (09:00)
[2017-11-05] MEDS: QUEtiapine 25 MG TABLET. PO SCH ×3 (09:00→16:57)
[2017-11-05] MEDS: DIVALPROEX 125 MG CAP.SPRINK PO SCH ×2 (09:00→16:57)
[2017-11-05] MEDS: CALCIUM CARB/VIT D3 500/200 TABLET PO SCH ×3 (09:00→19:38)
[2017-11-05] MEDS: CHOLECALCIFEROL (VITAMIN D3) 1,000 UNIT TABLET PO SCH (09:00)
[2017-11-05 12:10] VITALS: BP 158/110
[2017-11-05 13:21] VITALS: BP 168/98
--- NOTE | 2017-11-05 13:34 | PN ---
DATE: 11/03/2017 This is a late entry 11/03/2017, covers elements not covered in my initial note 11/03/2017. Met with the patient in the evening. The patient remains confused, anxious, restless. The previous night she was quite hateful, argumentative with staff, wandering, did not know what to do with her meds. She slept 6-1/4 hours. REVIEW OF SYSTEMS: No CV, , pulmonary, eye, ENT system symptoms on review. Reliability poor. MENTAL STATUS EXAM: Oriented to herself. Insight, judgment, recent and remote memory, attention, concentration, fund of knowledge poor, consistent with her diagnosis mentioned in my initial note. IMPRESSION: Major neurocognitive disorder, Alzheimer, vascular with delusion, depression, behavioral disturbance. Rest unchanged. PLAN: Start Depakote Sprinkles 125 mg at 9:00 a.m., 5:00 p.m. Check CBC, CMP, valproic acid level in 3 days. Continue rest psychotropics unchanged from initial note. MAN Letitia HAWLEY MD DR: NANCY/jamir JOB#: [id number] / [id number]
--- NOTE | 2017-11-05 14:54 | RAD ---
CT head without contrast History: Fall. Comparison: CT head October 26, 2017. Procedure: Axial images are obtained of the head from the skull base through the vertex without IV contrast. One or more of the following individualized dose reduction techniques were utilized for the study: Automated exposure control Adjustment of mA and/or kV according to patient's size Use of iterative reconstruction technique. Findings: There is motion artifact at many levels which could obscure significant abnormalities. The ventricles and sulci are normal for the patient's age. No mass-effect, intracranial mass, midline shift, hemorrhage or obvious acute infarction is identified. Basilar cisterns are patent. Advanced, nonspecific, white matter low attenuation is seen, probably from chronic microvascular ischemic disease. Bone windows demonstrate no significant calvarial abnormality. The visualized paranasal sinuses appear clear. Impression: 1. Limited by motion. 2. No acute intracranial process. Please note that CT can be relatively insensitive to acute ischemic infarction for up to 24 hours after symptom onset. 3. Advanced, nonspecific white matter changes, probably from chronic microvascular ischemic disease.
[2017-11-05 15:33] VITALS: BP 170/102
[2017-11-05] MEDS ORDERED: amLODIPine BESYLATE 5 MG TABLET PO ONE ×2 (16:00→18:30)
[2017-11-05 18:09] VITALS: BP 176/98
[2017-11-05] MEDS ORDERED: hydrALAZINE 25 MG TABLET PO ONE (18:30)
[2017-11-05] MEDS: DOXYCYCLINE HYCLATE 100 MG TABLET PO SCH (19:40)
[2017-11-05] MEDS: LACTOBACILLUS RHAMNOSUS GG 1 CAPSULE. PO SCH (19:41)
--- NOTE | 2017-11-05 20:59 | PDOC ---
Exam Note: Pino Note: Please also refer to the separate dictated note~for this date of service dictated separately.~Patient seen individually. Discussed the patient with Nursing staff reviewed the chart.~Reviewed interim history and current functioning. Reviewed vital signs,~Labs/ Radiology~and current medications noted below. Continue current treatment with the changes noted in the dictated addendum note Assessment: Vital Signs: Vital Signs Date Time Temp Pulse Resp B/P (MAP) Pulse Ox O2 Delivery O2 Flow Rate FiO2 11/05/17 18:41 93 176/98 11/05/17 15:33 97.2 20 100 11/01/17 16:59 Room Air I&O Intake and Output 11/05/17 07:00 Intake Total 720 ml Balance 720 ml Intake Oral 720 ml Labs: Laboratory Tests Test 11/05/17 07:47 11/05/17 08:13 Glucose (Fingerstick) 59 mg/dL (70-99) L 79 mg/dL (70-99) Current Medications: Meds: Current Medications Acetaminophen (Tylenol) 650 mg PRN Q6HRS PRN PO PAIN / TEMP Last administered on 11/01/17at 12:57; Start 10/31/17 at 15:00 Multi-Ingredient Ointment (Analgesic [place]) 1 fuad PRN QID PRN TP MUSCLE PAIN; Start 10/31/17 at 15:00 Al Hydroxide/Mg Hydroxide (Mylanta Plus Xs) 15 ml PRN AFTMEALHC PRN PO DYSPEPSIA; Start 10/31/17 at 15:00 Magnesium Hydroxide (Milk Of Magnesia) 2,400 mg PRN QHS PRN PO CONSTIPATION; Start 10/31/17 at 15:00 Calcium/Vitamin D (Oscal D 500mg/ 200uts) 1 tab TID PO Last administered on at 19:38; Start 10/31/17 at 21:00 Vitamin D (Vitamin D3) 1,000 unit DAILY PO Last administered on 11/05/17at 09:00 ; Start 11/01/17 at 09:00 Glimepiride (Amaryl) 1 mg DAILY PO Last administered on 11/05/17at 09:00; Start 11/01/17 at 09:00 Trazodone HCl (Desyrel) 50 mg PRN QHS PRN PO INSOMNIA, MAY REPEAT X1 Last administered on 11/03/17at 20:42; Start 10/31/17 at 18:45 Quetiapine Fumarate (SEROquel) 12.5 mg TID@0900,1300,1700 PO Last administered on 11/05/17at 16:57; Start 11/01/17 at 09:00 Divalproex Sodium (Depakote Sprinkles) 125 mg BIDWMEALS PO ; Start 11/03/17 at 19:00; Stop 11/03/17 at 19:23; Status DC Divalproex Sodium (Depakote Sprinkles) 125 mg BID@0900,1700 PO Last administered on 11/05/17at 16:57; Start 11/04/17 at 09:00 Amlodipine Besylate (Norvasc) 5 mg 1X ONCE PO Last administered on 11/05/17at 15:51; Start 11/05/17 at 16:00; Stop 11/05/17 at 16:01; Status DC Doxycycline Hyclate (Vibra-Tab) 100 mg BID PO Last administered on 11/05/17at 19 :40; Start 11/05/17 at 21:00; Stop 11/12/17 at 20:59 Amlodipine Besylate (Norvasc) 10 mg DAILY PO ; Start 11/06/17 at 09:00 Lactobacillus Rhamnosus (Culturelle) 1 cap BID PO Last administered on at 19:41; Start 11/05/17 at 21:00 Amlodipine Besylate (Norvasc) 5 mg 1X ONCE PO Last administered on 11/05/17at 18:41; Start 11/05/17 at 18:30; Stop 11/05/17 at 18:38; Status DC Hydralazine HCl (Apresoline) 25 mg 1X ONCE PO Last administered on 11/05/17at 18:41; Start 11/05/17 at 18:30; Stop 11/05/17 at 18:38; Status DC Hydralazine HCl (Apresoline) 25 mg TID PO ; Start 11/05/17 at 21:00; Stop at 21:00; Status DC Hydralazine HCl (Apresoline) 25 mg TID PO ; Start 11/06/17 at 09:00 Active Scripts Active Calcium 500 + Vit D 200 Tablet (Calcium Carbonate/Vitamin D3) 1 Each Tablet 1 Each PO TID 30 Days Vitamin D3 (Cholecalciferol (Vitamin D3)) 1,000 Unit Tablet 1 Tab PO DAILY Amaryl (Glimepiride) 1 Mg Tablet 1 Tab PO DAILY Reported Carvedilol 25 Mg Tablet 1 Tab PO BID LAST DOSE GIVEN: DATE: TODAY TIME: WITH DINNER NEXT DOSE DUE: DATE: TOMORROW TIME: WITH BREAKFAST I have reviewed the current psychotropics carefully including drug interactions. Risk benefit ratio favors no change other than as noted in my dictated progress note. Diagnosis: Problems: (1) Impulse control disorder (2) Anxiety disorder (3) Dementia, vascular, with depression (4) Dementia, vascular, with delusions (5) Dementia in Alzheimer's disease with depression (6) Dementia in Alzheimer's disease with delusions JASON HAWLEY MD November 05, 2017 20:59
[2017-11-05] MEDS ORDERED: hydrALAZINE 25 MG TABLET PO SCH (21:00)
--- NOTE | 2017-11-06 00:35 | PN ---
DATE: 11/04/2017 PSYCHIATRIC PROGRESS NOTE This is a late entry for 11/04/2017, covers elements not covered in my initial note of 11/04/2017. SUBJECTIVE: I met with the patient in the evening. The patient remains confused, wandering around the unit, quite disorganized, unable to tell me if her sister visited her. Speech is word salad. REVIEW OF SYSTEMS: No CV, , pulmonary, eye, ENT system symptoms on review. Reliability poor. MENTAL STATUS EXAM: Oriented to herself. Insight, judgment, recent and remote memory, attention, concentration, fund of knowledge poor, consistent with her diagnosis mentioned in my initial note. IMPRESSION: Major neurocognitive disorder, Alzheimer, vascular with delusion, depression, behavioral disturbance. Rest unchanged. PLAN: Continue psychotropics mentioned in my initial note including Seroquel 12.5 mg 3 times a day, trazodone 50 mg at bedtime p.r.n., may repeat x 1. May need to add Depakote. We will just see how she does over the next day or so. MAN Letitia HAWLEY MD DR: NANCY/jamir JOB#: [id number] / [id number]
--- NOTE | 2017-11-06 00:45 | PN ---
DATE: 11/04/2017 ADDENDUM This is a late entry and addendum to my prior note for 11/04/2017. In fact, Depakote Sprinkles were started 125 mg b.i.d. the previous day and we will be checking CBC, CMP, valproic acid level in 3 days. JASON HAWLEY MD DR: NANCY/jamir JOB#: [id number] / [id number]
--- NOTE | 2017-11-06 04:05 | PN ---
DATE: 11/05/2017 SUBJECTIVE: The patient was seen today, met with the staff, chart reviewed, and also covering for Dr. Gonzalez. Staff reports recent fall. Otherwise, her behavior has improved. Occasionally becomes hyperverbal, refusing the meds. OBSERVATION: VITAL SIGNS: Temperature 97.6, blood pressure 149/74, pulse 91, respirations 20, O2 sat 99%. Slept about 6 hours last night. The patient's appetite is fair. MEDICATIONS: The patient's current medications include Depakote 125 mg b.i.d., Seroquel 12.5 mg t.i.d., trazodone 50 mg at night p.r.n. The patient is also on amlodipine, Amaryl, and vitamin D. The patient is not having any side effects to the medication. The patient's lab reviewed. The patient is not having any major physical problems. ASSESSMENT: Major neurocognitive disorder, Alzheimer's, vascular with delusion, depression, and behavioral disturbances; anxiety disorder unspecified, also bipolar disorder unspecified. PLAN: Continue with the treatment. ELSIE GARCIA MD DR: DEVIN/jamir JOB#: [id number] / [id number]
[2017-11-06 07:42] LABS: ALBUMIN 3.2 g/dL (3.4-5.0); ALBUMIN/GLOBULIN RATIO 0.8 (1.0-1.7); CREATININE 2.9 mg/dL (0.6-1.0); POTASSIUM 4.9 mmol/L (3.5-5.1); TOTAL BILIRUBIN 0.3 mg/dL (0.2-1.0); TOTAL PROTEIN 7.4 g/dL (6.4-8.2)
[2017-11-06 07:52] LABS: BASO % 0 % (0-3); EOS # 0.1 x10^3/uL (0.0-0.7); EOS % 1 % (0-3); HEMATOCRIT 31.8 % (36.0-47.0); HEMOGLOBIN 10.9 g/dL (12.0-15.5); LYMPH % 14 % (24-48); MEAN CORPUSCULAR HEMOGLOBIN 32 pg (25-35); MEAN CORPUSCULAR HGB CONC 35 g/dL (31-37); MEAN CORPUSCULAR VOLUME 93 fL (79-100); MONO # 0.5 x10^3/uL (0.0-1.1); MONO % 7 % (0-9); NEUT # 6.1 x10^3uL (1.8-7.7); NEUT % 78 % (31-73); PLATELET COUNT 178 x10^3/uL (140-400); RED BLOOD COUNT 3.44 x10^6/uL (3.50-5.40); RED CELL DISTRIBUTION WIDTH 15.6 % (11.5-14.5); WHITE BLOOD COUNT 7.7 x10^3/uL (4.0-11.0)
[2017-11-06] MEDS ORDERED: amLODIPine BESYLATE 10 MG TABLET PO SCH (09:00)
--- NOTE | 2017-11-06 09:15 | RAD ---
Exam: AP portable chest History: Hypertension. Comparison: February 25, 2017. Findings: There is suboptimal inspiration. The heart and mediastinal structures are within normal limits for size. Lungs are without infiltrate. No pleural effusion or pneumothorax is identified. Aortic atherosclerosis is seen. Impression: 1. No acute cardiopulmonary process. Electronically signed by: Martinez Neil MD (11/06/2017 9:12 AM) [facility]
[2017-11-06] MEDS: CALCIUM CARB/VIT D3 500/200 TABLET PO SCH ×3 (09:28→19:47)
[2017-11-06] MEDS: DIVALPROEX 125 MG CAP.SPRINK PO SCH ×2 (09:28→14:40)
[2017-11-06] MEDS: DOXYCYCLINE HYCLATE 100 MG TABLET PO SCH ×2 (09:29→19:48)
[2017-11-06] MEDS: GLIMEPIRIDE 2 MG TABLET PO SCH (09:29)
[2017-11-06] MEDS: CHOLECALCIFEROL (VITAMIN D3) 1,000 UNIT TABLET PO SCH (09:29)
[2017-11-06] MEDS: LACTOBACILLUS RHAMNOSUS GG 1 CAPSULE. PO SCH ×2 (09:30→19:47)
[2017-11-06] MEDS: QUEtiapine 25 MG TABLET. PO SCH ×3 (09:30→14:42)
[2017-11-06] MEDS: hydrALAZINE 25 MG TABLET PO SCH ×3 (09:36→19:48)
[2017-11-06 16:59] VITALS: BP 158/92
[2017-11-06 19:48] VITALS: BP 158/92
[2017-11-06] MEDS: traZODone 50 MG TABLET. PO PRN (19:49)
[2017-11-07 05:36] LABS: BASO # 0.1 x10^3/uL (0.0-0.2); BASO % 1 % (0-3); EOS # 0.1 x10^3/uL (0.0-0.7); EOS % 2 % (0-3); HEMATOCRIT 27.5 % (36.0-47.0); HEMOGLOBIN 9.5 g/dL (12.0-15.5); LYMPH # 1.6 x10^3/uL (1.0-4.8); LYMPH % 22 % (24-48); MEAN CORPUSCULAR HEMOGLOBIN 32 pg (25-35); MEAN CORPUSCULAR HGB CONC 35 g/dL (31-37); MEAN CORPUSCULAR VOLUME 93 fL (79-100); MONO # 0.7 x10^3/uL (0.0-1.1); MONO % 9 % (0-9); NEUT # 4.8 x10^3uL (1.8-7.7); NEUT % 66 % (31-73); PLATELET COUNT 161 x10^3/uL (140-400); RED BLOOD COUNT 2.96 x10^6/uL (3.50-5.40); RED CELL DISTRIBUTION WIDTH 14.9 % (11.5-14.5); WHITE BLOOD COUNT 7.2 x10^3/uL (4.0-11.0)
[2017-11-07 05:39] LABS: BGAS PH 7.35 (7.35-7.45)
[2017-11-07 05:42] LABS: ALBUMIN 2.8 g/dL (3.4-5.0); ALBUMIN/GLOBULIN RATIO 0.8 (1.0-1.7); ALK PHOS 139 U/L (46-116); ALT (SGPT) 53 U/L (14-59); ANION GAP 10 (6-14); AST (SGOT) 33 U/L (15-37); BLOOD UREA NITROGEN 69 mg/dL (7-20); BUN/CREATININE RATIO 21 (6-20); CALCIUM 6.6 mg/dL (8.5-10.1); CARBON DIOXIDE 24 mmol/L (21-32); CHLORIDE 112 mmol/L (98-107); CREATININE 3.3 mg/dL (0.6-1.0); GFR 13.7; GLUCOSE 76 mg/dL (70-99); POTASSIUM 5.7 mmol/L (3.5-5.1); SODIUM 146 mmol/L (136-145); TOTAL BILIRUBIN 0.4 mg/dL (0.2-1.0); TOTAL PROTEIN 6.5 g/dL (6.4-8.2)
[2017-11-07 05:43] LABS: VAL ACID 13 mcg/mL (50-100)
--- NOTE | 2017-11-07 06:11 | RAD ---
CT head without contrast: HISTORY: CODE BLUE, fell and hit back of head, unresponsive. TECHNIQUE: [address] imaging skull base to vertex. FINDINGS: Left parafalcine mixed density subdural hemorrhage maximum thickness of 5 mm. Generalized brain atrophy. Generalized brain atrophy. Cerebral white matter hypoattenuation likely chronic microvascular ischemic change. No mass, hydrocephalus or acute infarction. Small chronic basal ganglia lacunar infarcts occipital scalp laceration with soft tissue edema and emphysema. Orbits, mastoids. Orbits, mastoids and bones are unremarkable. IMPRESSION: 1. Mixed density posterior parafalcine and subdural hematoma with a thickness of 5 mm, the mixed density could be due to an acute on chronic hemorrhage or due to acute hemorrhage with active bleeding or acute hemorrhage in the setting of anemia. 2. The patient's CT cervical spine images did not include all of the required reconstructions. The medical technologist clinical will need to send over all of the reconstructions in order to render an interpretation. Attempts were made to call the medical technologist clinical. Critical results called to Dr. Augustin at 6:00 AM November 07, 2017 Exposure: One or more of the following individualized dose reduction techniques were utilized for this examination: 1. Automated exposure control 2. Adjustment of the mA and/or kV according to patient size 3. Use of iterative reconstruction technique Electronically signed by: Tez Corrales MD (11/07/2017 6:08 AM) [facility]
--- NOTE | 2017-11-07 06:43 | RAD ---
CT thoracic spine without contrast. CT lumbar spine without contrast. HISTORY: CODE BLUE, fell landing on the back. TECHNIQUE: Helical multiplanar reconstructed noncontrast CT imaging of the thoracic and lumbar spine was acquired. CT thoracic spine findings: Thoracic vertebral body height and alignment intact. No fracture. No spondylolysis. Left lower lobe opacities. Thoracic disc height loss and bridging anterior disc osteophytes, bony spinal canal is grossly patent. Paraspinal tissues are unremarkable. Thoracic spine impression: No acute osseous injury of the thoracic spine. Left lower lobe infiltrate possibly pneumonia, aspiration or contusion. Consider follow-up chest imaging to document that this resolves after treatment. CT lumbar spine findings: Chronic endplate deformities typical of chronic Schmorl's nodes of the L1 and L4 vertebra. Lumbar vertebral body height and alignment intact. 2 mm anterolisthesis of L3 on L4 and L4-L5. No acute fracture. No spondylolysis defect. There may be mild left renal pelvis dilation and stranding density. Lumbar disc bulges and facet osteophytes are present with multilevel spinal canal and neural foraminal stenoses with severe stenosis at L3-L4 and L4-L5. Lumbar spine impression: 1. No acute osseous injury of the lumbar spine. 2. Lumbar disc disease with severe spinal canal stenoses L3-L4 and L4-L5. 3. Mild left renal pelviectasis with stranding edema and mild internal density. This could be pyelonephritis. Urothelial tumor is not excluded. Exposure: One or more of the following individualized dose reduction techniques were utilized for this examination: 1. Automated exposure control 2. Adjustment of the mA and/or kV according to patient size 3. Use of iterative reconstruction technique Electronically signed by: Tez Corrales MD (11/07/2017 6:40 AM) [facility]
[2017-11-07] MEDS ORDERED: ACET325T9 PO (12:38)
[2017-11-07] MEDS ORDERED: DOXY50TA12 PO (12:38)
[2017-11-07] MEDS ORDERED: DIVA500T2 PO (12:38)
[2017-11-07] MEDS ORDERED: QUET25TA5 PO (12:51)
[2017-11-07] MEDS ORDERED: LACT1CAP19 PO (12:51)
[2017-11-07] MEDS ORDERED: HYDR-2868 PO (12:51)
[2017-11-07] MEDS ORDERED: TRAZ50TA15 PO (12:51)
[2017-11-07] MEDS ORDERED: AMLO10TA4 PO (12:51)
--- NOTE | 2017-11-08 08:09 | PN ---
DATE: 11/06/2017 PSYCHIATRIC PROGRESS NOTE This late entry 11/06/2017 covers elements not covered in my initial note 11/06/2017. SUBJECTIVE: I met with the patient in the evening of 11/06/2017. The patient slept 7 hours, remains confused, anxious, restless at times, can be somewhat labile, overly expressive. REVIEW OF SYSTEMS: No CV, , pulmonary, eye, ENT system symptoms on review. Reliability poor. MENTAL STATUS EXAM: Oriented to herself. Insight, judgment, recent and remote memory, attention, concentration, fund of knowledge poor, consistent with her diagnosis mentioned in my initial note. She has not thrown herself back on the floor like she did a couple of days back. IMPRESSION: Major neurocognitive disorder, Alzheimer, vascular with delusion, depression, behavioral disturbance, urinary tract infection, anxiety disorder, unspecified; impulse control disorder, unspecified. PLAN: Continue psychotropics mentioned in my initial note. Check valproic acid level morning of 11/07/2017. Continue rest unchanged. MAN Letitia HAWLEY MD DR: NANCY/jamir JOB#: [id number] / [id number]
--- NOTE | 2017-11-09 16:51 | DS ---
DATE OF DISCHARGE: 11/07/2017 DISCHARGE SUMMARY/PSYCHIATRIC PROGRESS NOTE This is a late entry, date of service, 11/07/2017, covers elements not covered in my initial note of 11/07/2017. REASON FOR ADMISSION: Please refer to the admission history for details. Briefly, the patient is a 72-year-old female referred to us from the home health services and her primary care physician after she returned home from medical stabilization on [address] [place] [address] and was being cared for at home by her sister. The patient was manic, hyperverbal, refusing medications, urinating everywhere, unmanageable, out of control, extremely confused, referred for inpatient psychiatric stabilization. SIGNIFICANT FINDINGS AND CLINICAL COURSE: Following admission, the patient was seen daily individually by myself, followed medically per Dr. Dent/Dr Ruiz. The patient remains confused, hyperverbal, quite labile. Adjustments were made in her psychotropics and Seroquel was added at 12.5 mg and adjusted to 3 times a day and she was on Depakote Sprinkles 125 mg twice a day, trazodone 50 mg at bedtime p.r.n., october repeat x 1 for insomnia. From a psychiatric standpoint, she was doing better, but supervisor riprap placing of 11/07/2017, she fell, hit her head, and CT head showed questionable bleed. She was transferred to [facility] per Dr. Ruiz and thereafter I believe to [facility] prior to discharge. REVIEW OF SYSTEMS: No CV, , pulmonary, eye system symptoms on review. Reliability poor due to her dementia. MENTAL STATUS EXAM: Oriented to herself. Insight, judgment, recent and remote memory, attention, concentration, fund of knowledge poor, consistent with her diagnosis. FINAL DIAGNOSES: Major neurocognitive disorder, Alzheimer, vascular with depression, delusion, behavioral disturbance; anxiety disorder, unspecified; impulse control disorder, unspecified, status post head injury. Rest unchanged from admission. DISCHARGE MEDICATIONS: Please refer to the [facility]. DISCHARGE INSTRUCTIONS: Further medical and psychiatric followup at [facility]. MAN Letitia HAWLEY MD DR: NANCY/jamir JOB#: [id number] / [id number]
== END 2017-11-07 06:12 | DRG 884 ==
LOC: GEROPSY 13:42
PROVIDERS: ADMIT Psychiatry & Neurology Psychiatry; ATTEND Psychiatry & Neurology Psychiatry
DX: F01.51 Vascular dementia, unspecified severity, with behavioral disturbance (principal); N17.9 Acute kidney failure, unspecified; E11.22 Type 2 diabetes mellitus with diabetic chronic kidney disease; G30.9 Alzheimer's disease, unspecified; F02.81 Dementia in other diseases classified elsewhere, unspecified severity, with behavioral disturbance; N39.0 Urinary tract infection, site not specified; F31.9 Bipolar disorder, unspecified; E78.5 Hyperlipidemia, unspecified; F41.9 Anxiety disorder, unspecified; F63.9 Impulse disorder, unspecified; G47.00 Insomnia, unspecified; I12.9 Hypertensive chronic kidney disease with stage 1 through stage 4 chronic kidney disease, or unspecified chronic kidney disease; I25.10 Atherosclerotic heart disease of native coronary artery without angina pectoris; N18.9 Chronic kidney disease, unspecified; Z91.83 Wandering in diseases classified elsewhere
CPT/HCPCS: 36415; 70450; 71045; 72125; 72128; 72131; 80053; 80061; 80164; 81001; 82306; 82607; 82803; 82947; 83036; 83540; 83550; 83735; 84436; 84443; 84480; 85025; 86593

== ENCOUNTER 2017-11-07 06:15 | Inpatient (IN) | payer MEDICARE, BC ==
[2017-11-07] VITALS (9 sets, daily range): BP systolic 150–186; BP diastolic 72–118
[~2017-11-07] VITALS: Ht 149.9 cm; Wt 70.8 kg
[2017-11-07] MEDS ORDERED: LACTULOSE 20 GM/30 ML SOLUTION. PO ONE (10:45)
[2017-11-07] MEDS ORDERED: CALCIUM CHLORIDE 1,000 MG in IV NORMAL SALINE 50ML 50 ML IV ONE (11:30)
[2017-11-07] MEDS ORDERED: MAGNESIUM SULFATE 2GM 50 ML IV ONE (12:15)
[2017-11-07] MEDS ORDERED: DOXY50TA12 PO (12:38)
[2017-11-07] MEDS ORDERED: ACET325T9 PO (12:38)
[2017-11-07] MEDS ORDERED: DIVA500T2 PO (12:38)
--- NOTE | 2017-11-07 12:38 | RAD ---
PQRS Compliance Statement: One or more of the following individualized dose reduction techniques were utilized for this examination: 1. Automated exposure control 2. Adjustment of the mA and/or kV according to patient size 3. Use of iterative reconstruction technique CT HEAD WITHOUT CONTRAST History: Subdural hematoma. Patient fell and hit head. Comparison: CT head without contrast, same day [address] head without contrast, 2 days ago. Technique: Axial images are obtained of the head from the skull base through the vertex without IV contrast. Findings: Slight redistribution of mixed density subdural hemorrhage along the left upper falx, best seen on images 21-23. The hemorrhage has not increased in size. Maximum diameter is 4 mm. Finding not present on CT head of November 05. Finding is therefore acute. No mass-effect, midline shift, or obvious acute infarction is identified. Basilar cisterns are patent. The ventricles and sulci are prominent, consistent with age-related cerebral atrophy. There is periventricular white matter hypoattenuation. This is a nonspecific finding but is commonly due to chronic small vessel ischemic disease. Bone windows demonstrate no acute calvarial abnormality. Moderate right parietal occipital scalp hematoma. There are skin jeanne. Mild mucosal thickening bilateral maxillary and ethmoid sinuses. Maxillary sinuses are incompletely imaged. Question wall thickening on the left. Mastoid air cells are well aerated. IMPRESSION: 1. Acute left parafalcine subdural hematoma has not increased in size. There has been slight redistribution of blood products. 2. Age-related cerebral atrophy and periventricular and subcortical white matter changes of chronic small vessel ischemic disease. 3. Moderate right parietal occipital scalp hematoma. Electronically signed by: Jerry Cortes MD (11/07/2017 12:34 PM) [id number]
[2017-11-07] MEDS ORDERED: QUET25TA5 PO (12:51)
[2017-11-07] MEDS ORDERED: HYDR-2868 PO (12:51)
[2017-11-07] MEDS ORDERED: TRAZ50TA15 PO (12:51)
[2017-11-07] MEDS ORDERED: LACT1CAP19 PO (12:51)
[2017-11-07] MEDS ORDERED: AMLO10TA4 PO (12:51)
--- NOTE | 2017-11-07 12:54 | RAD ---
PQRS Compliance Statement: One or more of the following individualized dose reduction techniques were utilized for this examination: 1. Automated exposure control 2. Adjustment of the mA and/or kV according to patient size 3. Use of iterative reconstruction technique CT CHEST WO CONTRAST Clinical Indication: Subdural hematoma. Patient fell and hit head. Personal history of hypertension. Abnormal CT thoracic spine. Comparison: CT thoracic spine without contrast, same day, 0540 hours. TECHNIQUE: Helical CT imaging of the chest is performed without IV contrast. Findings: Thyroid is prominent. No mediastinal adenopathy. Limited evaluation of the elbert without IV contrast. There is cardiomegaly. There is dense mitral annular calcification. Mild coronary artery disease. There is no pericardial effusion. There is no pleural effusion. Respiratory motion artifact limits evaluation to the lungs. Central airways are patent. There is probably mild peribronchial thickening in the basilar right lower lobe. There is patchy consolidation with surrounding groundglass opacities and peribronchial thickening in the superior segment of the left lower lobe. The opacities have increased from prior study. Cholecystectomy. Visualized upper abdomen otherwise unremarkable. Bones appear stable. IMPRESSION: Opacity in the left lower lobe has increased from earlier same day. Considerations again include aspiration, pneumonia, or pulmonary contusion. Electronically signed by: Jerry Cortes MD (11/07/2017 12:50 PM) [id number]
[2017-11-07] MEDS ORDERED: PIP/TAZO PER PHARMACY MC PRN (13:15)
[2017-11-07] MEDS ORDERED: amLODIPine BESYLATE 10 MG TABLET PO SCH (13:30)
[2017-11-07] MEDS ORDERED: PIPERACILLIN/TAZOBACTAM 2.25 GM in IV NORMAL SALINE 50ML 50 ML IV SCH (14:00)
[2017-11-07] MEDS ORDERED: hydrALAZINE 25 MG TABLET PO SCH (14:00)
--- NOTE | 2017-11-08 05:01 | SSS ---
ADMIT DATE: 11/07/2017 HISTORY OF PRESENT ILLNESS: This is a 72-year-old female patient who apparently was transferred from [facility] as she apparently fell. The patient did not lose any pulses at any time and did not stop breathing. She was transferred to the ICU from [facility] where the patient was previously being cared for. She reportedly fell from a standing position, striking the back of her head on the floor and on evaluation, the patient was profoundly demented and was not able to provide any history. The patient was placed in a c-collar, was found to have a large avulsive wound measuring approximately 3 cm at the right occipital scalp. This was repaired and CT scan of the head was ordered as well as of the cervical spine, which basically showed that she has a finding of subdural hematoma and we did actually contact Dr. Nguyen, the neurosurgeon at [facility]; however, her sister wanted her to be transferred to [facility] and the neurosurgeon there looked at the images and they said that he does not think that the patient has a subdural hematoma, but merely calcification and they recommended to repeat her CT scan in 6 hours' time and was kept in the ICU with a diagnosis of closed head injury, subdural hematoma, fall from standing and dementia. PAST MEDICAL HISTORY: Significant for chronic kidney disease, hypertension, hyperlipidemia, coronary artery disease, recurrent episode of hypoglycemia, hypocalcemia, hyperphosphatemia. She also had anemia and type 2 diabetes and urinary tract infection. PAST SURGICAL HISTORY: Unremarkable. PAST PSYCHIATRIC HISTORY: Significant for dementia with behavioral disorder and hallucination. ALLERGIES: She has no known drug allergies. MEDICATIONS: She was on carvedilol 25 mg twice a day, glimepiride 1 mg once a day, cholecalciferol 1000 international units once a day, calcium carbonate with vitamin D3 one tablet 3 times a day. REVIEW OF SYSTEMS: Unobtainable. The patient is extremely demented. PHYSICAL EXAMINATION: GENERAL: On examining her in the ICU, the patient was resting slightly propped up in bed with the cervical collar in place. She was demented and does not give any useful information. She was pale, no jaundice, cyanosis, or thyromegaly. No jugular venous distension. No limb edema. VITAL SIGNS: Her heart rate was 101, blood pressure was 167/84, temperature was 98.5, respiratory rate 20, and oxygen saturation was 93%. HEAD, EYES, EARS, NOSE AND THROAT: Showed normocephalic, atraumatic. She has occipital laceration that was sutured by the ER physician. NECK: Was in a cervical collar. HEART: Showed normal first and second heart sounds with no gallop, rub or murmur. CHEST: Clear to auscultation. No crepitation or rhonchi. ABDOMEN: Distended, soft, nontender. NEUROLOGIC: She was demented, but without any obvious lateralizing sign. LABORATORY DATA: Showed that her white cell count was 7200, hemoglobin 9.5, hematocrit 27.5, respiratory rate 93 and her MCV was 93, and platelet count 261,000. Her serum sodium was 146, potassium 5.7, chloride 112, bicarbonate 24, anion gap of 10, BUN 69, creatinine 3.3, estimated GFR was 21 mL per minute. Her glucose 76, calcium was 6.6. Total bilirubin, AST, ALT were normal. Alkaline phosphatase slightly elevated. Total protein 6.5, albumin 2.8. Her blood gases showed a pH of 7.35, pCO2 of 37, pO2 of 84, bicarbonate 21 and oxygen saturation was 96% on room air. Urinalysis was essentially unremarkable. Toxic screen was negative. IMAGING DATA: Her initial CT scan showed that there is mixed density posterior parafalcine and subdural hematoma with a thickness of 5 mm, the mixed density could be due to an [id number] hemorrhage or due to acute hemorrhage with active bleeding or acute hemorrhage in the setting of anemia. Her CT scan of the cervical spine images did not include all of the required reconstruction. Apparently, the radiology ct technologist did not send over all reconstruction in order to render an interpretation. We did contact the neurosurgeon at [facility] who did not recommend any intervention. In fact, he did not think even the patient has subdural hematoma and recommended to repeat the CT scan in 6 hours' time, which was done and her repeat CT scan of the head without contrast showed that the patient has acute left parafalcine subdural hematoma has not increased in size. There has been slight redistribution of the blood products and age-related cerebral atrophy and periventricular and subcortical white matter changes of chronic small vessel ischemic disease. She has also moderate right parietal occipital scalp hematoma. The family insists to transfer the patient to [facility]. We contacted the transfer center and the patient was accepted there and was transferred. FINAL DISCHARGE DIAGNOSES: Fall with acute left parafalcine subdural hematoma. Other medical problems include chronic renal failure, hyponatremia, hyperkalemia, [id number] kidney injury, hypertension, hypocalcemia and severe protein calorie malnutrition. AMY CAMERON MD DR: PAVAN/jamir JOB#: [id number] / [id number]
== END 2017-11-07 16:45 | disposition short-term general hospital (02) | DRG 82 ==
LOC: ICU 06:15
PROVIDERS: ADMIT Internal Medicine; ATTEND Internal Medicine
DX: S06.5X9A Traumatic subdural hemorrhage with loss of consciousness of unspecified duration, initial encounter (principal); E43 Unspecified severe protein-calorie malnutrition; N17.9 Acute kidney failure, unspecified; F03.91 Unspecified dementia, unspecified severity, with behavioral disturbance; E87.1 Hypo-osmolality and hyponatremia; E11.22 Type 2 diabetes mellitus with diabetic chronic kidney disease; E83.51 Hypocalcemia; E83.39 Other disorders of phosphorus metabolism; E87.5 Hyperkalemia; E78.5 Hyperlipidemia, unspecified; I12.9 Hypertensive chronic kidney disease with stage 1 through stage 4 chronic kidney disease, or unspecified chronic kidney disease; I25.10 Atherosclerotic heart disease of native coronary artery without angina pectoris; N18.9 Chronic kidney disease, unspecified; D64.9 Anemia, unspecified; E16.2 Hypoglycemia, unspecified; Z87.440 Personal history of urinary (tract) infections; Z68.31 Body mass index [BMI] 31.0-31.9, adult; W18.39XA Other fall on same level, initial encounter; Y93.89 Activity, other specified; Y92.89 Other specified places as the place of occurrence of the external cause; Y99.8 Other external cause status
CPT/HCPCS: 36415; 70450; 71250; 83605; 83735; 86701; 87040; J2020; J2543; J3475